=== PATIENT | female | born 1950 | race Caucasian/White ===

== ENCOUNTER → 2017-02-04 | Outpatient (REF) | payer BC, MEDICARE ==
[2017-02-04 19:44] LABS: LITHIUM LEVEL 1.28 MEQ/L (0.60-1.20)
== END ==
LOC: M SFHCADAM 15:07
PROVIDERS: ATTEND Physician Assistant Medical
DX: F31.75 Bipolar disorder, in partial remission, most recent episode depressed (principal); E55.9 Vitamin D deficiency, unspecified
CPT/HCPCS: 80178; 82306; G0463

== ENCOUNTER → 2017-02-24 | Outpatient (CLI) | payer BC, MEDICARE ==
--- NOTE | 2017-02-28 09:14 | DEXA ---
AP SPINE L1 - L4 1.176 -0.2 0.3 LT FEMUR TOTAL 1.015 0.1 0.6 RT FEMUR TOTAL 0.981 -0.2 0.3 TOTAL BODY TOTAL OTHER DUAL FEMUR FRAX* ASSESSMENT Risk factors: Premature menopause. 10 year probability of fracture Major osteoporotic fracture 7.5 % Hip fracture 0.6 % COMMENTS: Normal bone densitometry of the spine. Normal bone densitometry of the left hip. There is low bone density of the right hip. Mild lumbar scoliosis. FOLLOW-UP: Recommendation for the next bone density exam: 2 years. ASH
--- NOTE | 2017-03-02 15:13 | REPMRS ---
Patient History The patient states she has not had a clinical breast exam in over a year. Patient is postmenopausal. No known family history of cancer. Benign excisional biopsy of the right breast, 1983. Reductions of both breasts. Digital Woman Screen Mammo: February 24, 2017 - Exam #: [id number] Bilateral CC and MLO view(s) were taken. Technologist: Jennifer Garcia, Technologist Prior study comparison: March 07, 2014, digital bilateral screening mammo, performed at [facility]. February 08, 2013, digital bilateral screening mammo, performed at [facility]. FINDINGS: There are scattered fibroglandular densities. The visualized implant margins are smooth and unchanged.There is a pacemaker power plant projecting over the left axilla on the MLO view. Breast parenchymal density pattern is essentially symmetric. No dominant mass, clustered microcalcification, or archetectural distortion is evident on either side. No significant changes when compared with prior studies. ASSESSMENT: BI-RADS/ACR category 2 mammogram. Benign finding(s). Recommendation Routine screening mammogram of both breasts in 1 year (for women over age 40). Electronically Signed By: Damián Llanos MD 03/02/17 [id number]
== END ==
LOC: M WHC 13:54
PROVIDERS: ATTEND Physician Assistant Medical
DX: Z12.31 Encounter for screening mammogram for malignant neoplasm of breast (principal); Z78.0 Asymptomatic menopausal state; M41.26 Other idiopathic scoliosis, lumbar region
CPT/HCPCS: 77080; G0202

== ENCOUNTER → 2017-04-14 | Outpatient (CLI) | payer BC, MEDICARE ==
--- NOTE | 2017-04-21 07:46 | SLEEPCENT ---
DATE OF PROCEDURE: 04/14/2017 ORDERED BY: Adilene Montes Nocturnal polysomnography was performed for the retitration of pressure therapy in this patient with obstructive sleep apnea syndrome. For testing, a ResMed Mirage FX nasal mask of standard size was used. 4 cm of water pressure were applied to the circuit and the lights were extinguished. 7 hours and 53 minutes of data were reviewed. There were 342 minutes of sleep identified. Sleep latency was mildly prolonged at 20.5 minutes. REM latency was also mildly prolonged at 114 minutes. Sleep architecture was fair with some persistent fragmentation, brief arousals being seen. There were 3 rapid eye movement (REM) periods appreciated. Overall sleep efficiency was 73.7%. The patient's EKG showed a sinus rhythm with an average heart rate of 63 beats per minute. EEG showed some coarsening of background. No focal events. Normal wave forms for awake and sleep. Respiratory events were best palliated with CPAP at a pressure of +12 with which the patient slept through REM without respiratory event or significant oxygen desaturation. Minimal limb activity was appreciated. IMPRESSION: Obstructive sleep apnea syndrome (G47.33). RECOMMENDATION: Nightly use of pressure therapy 12 cm of water.
== END ==
LOC: M SLEEP 19:36
PROVIDERS: ATTEND Nurse Practitioner Adult Health
DX: G47.33 Obstructive sleep apnea (adult) (pediatric) (principal)

== ENCOUNTER → 2017-04-21 | Outpatient (REF) | payer BC, MEDICARE | LOC: M SFHCADAM 14:21 | PROVIDERS: ATTEND Physician Assistant Medical | DX: F31.75 Bipolar disorder, in partial remission, most recent episode depressed (principal) ==

== ENCOUNTER → 2017-07-07 | Outpatient (REF) | payer BC, MEDICARE ==
[~2017-07-07] MED LIST: ATOR1TAB19 PO; HYDR25TAB PO; IBUP80TA; LITH300C PO; LOSA100T36 PO; METO1TAB32 PO
== END ==
LOC: M LAB REF 16:49
PROVIDERS: ATTEND Obstetrics & Gynecology
DX: R30.0 Dysuria (principal)

== ENCOUNTER → 2017-07-14 | Outpatient (REF) | payer BC ==
[2017-07-14 13:30] LABS: BLOOD UREA NITROGEN 15 MG/DL (7-18); CREATININE FOR GFR 0.95 MG/DL (0.55-1.02); GLOMERULAR FILTRATION RATE > 60.0 (>45)
[2017-07-14 13:31] LABS: LITHIUM LEVEL 0.65 MEQ/L (0.60-1.20)
== END ==
LOC: M LAB REF 12:41
PROVIDERS: ATTEND Psychiatry & Neurology Psychiatry
DX: Z79.899 Other long term (current) drug therapy (principal)

== ENCOUNTER → 2017-07-21 | Outpatient (REF) | payer BC, MEDICARE ==
[2017-07-21 13:47] LABS: BASO # 0.1 10^3/uL (0.0-0.2); BASO % 0.9 % (0.0-1.0); EOS # 0.2 10^3/uL (0.0-0.50); EOS % 2.8 % (0.0-3.0); IMMATURE GRANULOCYTE % 0.4 % (0-0); LYMPH # 2.9 10^3/uL (1.5-4.5); MEAN CORPUSCULAR HEMOGLOBIN 31.5 pg (27.0-33.0); MEAN CORPUSCULAR HGB CONC 32.2 g/dl (32.0-36.5); MEAN CORPUSCULAR VOLUME 97.8 fl (80.0-96.0); MONO # 0.6 10^3/uL (0.0-0.8); MONO % 7.1 % (0.0-5.0); NEUTROPHILS # 3.9 10^3/uL (1.8-7.7); NEUTROPHILS % 50.8 % (36.0-66.0); PLATELET COUNT, AUTOMATED 270 10^3/uL (150-450); RED CELL DISTRIBUTION WIDTH 13.6 % (11.5-14.5); WHITE BLOOD COUNT 7.7 10^3/uL (4.0-10.0)
[2017-07-21 14:19] LABS: ALBUMIN 3.6 GM/DL (3.2-5.2); ALKALINE PHOSPHATASE 103 U/L (45-117); ALT/SGPT 32 U/L (12-78); ANION GAP 6 MEQ/L (8-16); AST/SGOT 19 U/L (15-37); BILIRUBIN,TOTAL 0.7 MG/DL (0.2-1.0); BLOOD UREA NITROGEN 14 MG/DL (7-18); CARBON DIOXIDE LEVEL 31 MEQ/L (21-32); CHLORIDE LEVEL 106 MEQ/L (98-107); CHOLESTEROL LEVEL 161 MG/DL (<200); CREATININE FOR GFR 0.81 MG/DL (0.55-1.02); GLOMERULAR FILTRATION RATE > 60.0 (>45); GLUCOSE, FASTING 78 MG/DL (80-110); POTASSIUM SERUM 4.1 MEQ/L (3.5-5.1); SODIUM LEVEL 143 MEQ/L (136-145); TOTAL PROTEIN 7.2 GM/DL (6.4-8.2); TRIGLYCERIDES LEVEL 197 MG/DL (<150)
== END ==
LOC: M SFHCADAM 09:56
PROVIDERS: ATTEND Physician Assistant Medical
DX: E78.2 Mixed hyperlipidemia (principal); I10 Essential (primary) hypertension

== ENCOUNTER 2017-08-31 05:45 | Day surgery (SDC) | payer BC, MEDICARE ==
[~2017-08-31] VITALS: Ht 172.7 cm; Wt 104.8 kg
[2017-08-31] MEDS ORDERED: LR 1,000 ML IV SCH ×2 (06:00→10:15)
[2017-08-31 06:28] LABS: MEAN CORPUSCULAR HEMOGLOBIN 31.9 pg (27.0-33.0); MEAN CORPUSCULAR HGB CONC 33.1 g/dl (32.0-36.5); MEAN CORPUSCULAR VOLUME 96.6 fl (80.0-96.0); PLATELET COUNT, AUTOMATED 276 10^3/uL (150-450); RED CELL DISTRIBUTION WIDTH 13.3 % (11.5-14.5); WHITE BLOOD COUNT 9.2 10^3/uL (4.0-10.0)
[2017-08-31] MEDS ORDERED: fentaNYL 100 MCG/2 ML INJECTION (J3010) As Ordered ONE ×2 (07:02→08:28)
[2017-08-31] MEDS ORDERED: MIDAZOLAM INJ 2 MG/2 ML VIAL (J2250) As Ordered ONE (07:02)
[2017-08-31] MEDS ORDERED: BUPIVACAINE/EPIN 0.25% 30 ML VIAL As Ordered ONE (07:13)
[2017-08-31] MEDS ORDERED: dexameTHASONE 4 MG/ML 1ML VIAL (J1100) As Ordered ONE (07:42)
[2017-08-31] MEDS ORDERED: ONDANSETRON 4MG/2ML VIAL (J2405) As Ordered ONE ×2 (07:43→09:40)
[2017-08-31] MEDS ORDERED: LIDOCAINE 2% INJ 100 MG/5 ML SDV (FOR ANES.) As Ordered ONE (07:44)
[2017-08-31] MEDS ORDERED: ROCURONIUM BROMIDE 50 MG/5 ML VIAL/SYRINGE As Ordered ONE (07:44)
[2017-08-31] MEDS ORDERED: SUCCINYLCHOLINE 100 MG/5 ML SYRINGE (J0330) As Ordered ONE (07:44)
[2017-08-31] MEDS ORDERED: PROPOFOL 200 MG/20 ML VIAL As Ordered ONE (07:44)
[2017-08-31] MEDS ORDERED: METOCLOPRAMIDE INJ 10MG/2ML VIAL (J2765) As Ordered ONE (10:12)
[2017-08-31] MEDS ORDERED: PERCOCET 5MG/325MG TAB PO PRN (10:15)
[2017-08-31] MEDS ORDERED: ONDANSETRON 4MG/2ML VIAL (J2405) IV PRN (10:15)
[2017-08-31] MEDS ORDERED: fentaNYL 100 MCG/2 ML INJECTION (J3010) IV PRN (10:15)
[2017-08-31] MEDS ORDERED: METOCLOPRAMIDE INJ 10MG/2ML VIAL (J2765) IV PRN (10:30)
[2017-08-31 11:15] VITALS: BP 115/59
[2017-08-31] MEDS ORDERED: COLA100C5 PO (14:34)
[2017-08-31] MEDS ORDERED: TRAM-533 PO (14:37)
--- NOTE | 2017-08-31 15:47 | RO ---
DATE OF PROCEDURE: 08/31/2017 PREOPERATIVE DIAGNOSIS: Pelvic organ prolapse with the rectocele. POSTOPERATIVE DIAGNOSIS: Pelvic organ prolapse with the rectocele. PROCEDURE PERFORMED: Posterior repair. SURGEON: Haley Iglesias MD SENIOR IT ASSISTANT: Cooper Jain MD ANESTHESIA: General endotracheal anesthesia. SPECIMENS: Vaginal mucosa. INTRAVENOUS FLUIDS: 1100 mL of lactated Ringer solution. OPERATIVE FINDINGS: A large midline rectocele. DESCRIPTION OF OPERATION: After informed consent was obtained and written content was reviewed, the patient was brought to the operating room where general endotracheal anesthesia was obtained. She was then placed in lithotomy position and was prepped and draped in a normal sterile fashion. A time-out in the operating room was then performed identifying the patient, the procedure to be performed, as well as drug allergies. The posterior vagina was placed on traction with Allis clamps. This area was injected with 0.25% Marcaine. Incision was made in the vaginal mucosal and dissected away from the submucosal in the midline extending approximately 6 cm along the posterior vaginal wall in the midline. The mucosal was then sharply and bluntly from the submucosal bilaterally. The rectovaginal fascia was then plicated using #2-0 Vicryl in the midline. The vaginal mucosal was then trimmed and closed with a running #2-0 Vicryl. A rectal exam was then performed with no suture identified. The patient was then taken out of lithotomy position, was awakened from general anesthesia and taken to recovery in stable condition. Counts were correct.
== END 2017-08-31 11:48 | disposition home or self-care (01) ==
LOC: M SDC 05:45
PROVIDERS: ATTEND Obstetrics & Gynecology
DX: N81.6 Rectocele (principal); N81.2 Incomplete uterovaginal prolapse; I10 Essential (primary) hypertension; E78.5 Hyperlipidemia, unspecified; K21.9 Gastro-esophageal reflux disease without esophagitis; F31.9 Bipolar disorder, unspecified; G47.33 Obstructive sleep apnea (adult) (pediatric); E66.01 Morbid (severe) obesity due to excess calories; E55.9 Vitamin D deficiency, unspecified; T88.59XD Other complications of anesthesia, subsequent encounter; K57.32 Diverticulitis of large intestine without perforation or abscess without bleeding; K44.9 Diaphragmatic hernia without obstruction or gangrene; K22.2 Esophageal obstruction; R29.898 Other symptoms and signs involving the musculoskeletal system; F32.9 Major depressive disorder, single episode, unspecified; R06.83 Snoring; Z88.0 Allergy status to penicillin; Z88.5 Allergy status to narcotic agent; Z79.899 Other long term (current) drug therapy; Z96.652 Presence of left artificial knee joint; Z95.0 Presence of cardiac pacemaker; Z90.710 Acquired absence of both cervix and uterus; Z87.440 Personal history of urinary (tract) infections
CPT/HCPCS: 36415; 57250; 85027; 86850; 86900; 86901; 88302; J0330; J1100; J2250; J2405; J2765; J3010

== ENCOUNTER → 2017-11-17 | Outpatient (CLI) | payer BC, MEDICARE, OTHER ==
[2017-11-17 12:59] LABS: LITHIUM LEVEL 0.96 MEQ/L (0.60-1.20)
== END ==
LOC: M ADAMS 09:53
DX: Z79.899 Other long term (current) drug therapy (principal)

== ENCOUNTER → 2018-02-10 | Outpatient (REF) | payer BC, MEDICARE, OTHER ==
[2018-02-10 13:34] LABS: GLOMERULAR FILTRATION RATE > 60.0 (>45)
[2018-02-10 13:34] LABS: BLOOD UREA NITROGEN 12 MG/DL (7-18)
[2018-02-10 13:44] LABS: LITHIUM LEVEL 0.74 MEQ/L (0.60-1.20)
== END ==
LOC: M LABDRWAD 12:29
DX: Z51.81 Encounter for therapeutic drug level monitoring (principal); Z79.899 Other long term (current) drug therapy
CPT/HCPCS: 82565

== ENCOUNTER 2018-11-28 11:20 | Day surgery (SDC) | payer MEDICARE, BC ==
[~2018-11-28] VITALS: Ht 172.7 cm; Wt 107.9 kg
[~2018-11-28 11:20] MED LIST changes: +COLA100C5 PO; -LOSA100T36 PO; +LOSA100T50 PO; +PRIL20TA2 PO; +TRAM-533 PO; +VENL150C43 PO; +VENL75CA47 PO; +VITA100067 PO; +VRAY3CAP PO; +XARE10TA PO
[2018-11-28] MEDS ORDERED: LR 1,000 ML IV ONE (11:45)
[2018-11-28] MEDS ORDERED: VANCOMYCIN HCL 1,000 MG, VIAL MATE ADAPTER 1 EACH in D5W 250 ML IV ONE (11:45)
[2018-11-28] MEDS ORDERED: LIDOCAINE 1% SDV INJ 30 ML VIAL As Ordered ONE (13:47)
[2018-11-28] MEDS ORDERED: VANCOMYCIN 1000 MG/20 ML VIAL (J3370) As Ordered ONE (13:47)
[2018-11-28] MEDS ORDERED: MUPIROCIN 2% OINT 22 GM TUBE As Ordered ONE (13:48)
[2018-11-28] MEDS ORDERED: PROPOFOL 200 MG/20 ML VIAL As Ordered ONE (13:52)
[2018-11-28] MEDS ORDERED: LIDOCAINE 2% INJ 100 MG/5 ML SDV (FOR ANES.) As Ordered ONE (13:52)
[2018-11-28] MEDS ORDERED: fentaNYL 100 MCG/2 ML INJECTION (J3010) As Ordered ONE (13:53)
[2018-11-28] MEDS ORDERED: MIDAZOLAM INJ 2 MG/2 ML VIAL (J2250) As Ordered ONE (13:53)
--- NOTE | 2018-11-28 15:59 | RO ---
DATE OF PROCEDURE: 11/28/2018 PREPROCEDURE DIAGNOSIS: Pacemaker battery depletion. POSTPROCEDURE DIAGNOSIS: Pacemaker battery depletion. FINDINGS: Pacemaker battery depletion. PROCEDURE PERFORMED: Explantation of old [employer] dual chamber pacemaker pulse generator and implantation of new Med[employer]onic dual chamber pacemaker pulse generator. Implantation of TYRX envelope. SURGEON: Raphael Argueta MD AGENCY DIRECTOR: None. ANESTHESIA: Lidocaine 1% local/monitored anesthetic care. SPECIMENS: Old [employer] pacemaker pulse generator (dual chamber). ESTIMATED BLOOD LOSS: Less than 3 mL. No blood products replaced. No drains. No complications. DESCRIPTION OF PROCEDURE: The patient was prepped and draped over the left pectoral region. 3M Ioban film was applied. Lidocaine 1% was used for local anesthetic. An incision was made with a PEAK PlasmaBlade over the body of the existing pacemaker pulse generator. A combination of PEAK PlasmaBlade and fine scissor dissection was used to get through the fatty tissue and the anterior capsule overlying the pacemaker pulse generator. The pacemaker pulse generator was then removed from the pocket. The pacemaker pocket was then expanded a small amount using blunt dissection using two fingers in a caudal direction. Next, the internal pins of the atrial and ventricular leads were removed from the existing pacemaker pulse generator after the set screws were loosened. The atrial and ventricular pacemaker leads were tested and found to be satisfactory for chronic leads. The internal pins of the atrial and ventricular leads were plugged into their respective ports in the header of the new pacemaker pulse generator and each one secured by tightening the set screws. The new pacemaker pulse generator was then placed into the pacemaker pocket along with the pacemaker wires below into the pocket. I then took a medium sized TYRX antimicrobial envelope and cut it into six pieces, which were placed over top of the pacemaker pulse generator. The deep layer was closed using individual sutures consisting of #2-0 Vicryl. A few additional #2-0 Vicryl sutures were used to help approximate the more superficial layer, including one #3-0 Vicryl suture. The skin was then approximated using maria. The patient tolerated the procedure well without any immediate complications. The pacemaker pulse generator that was removed was a [employer] model S403 Altrua 40 with serial number [id number], originally implanted 11/15/2011. The new pacemaker pulse generator implanted was a [employer] XT DR MRI with model number W1DR01 with serial number [id number]. The TYRX antimicrobial envelope had reference number [id number] with lot number [id number]. The existing right atrial lead was a model 4470, which was 52 cm in length and had serial number [id number] made by [employer] originally implanted 12/14/2011. Final testing in bipolar configuration in the operating room in bipolar configuration showed capture threshold of 0.4 volts at 0.5 milliseconds with lead impedance of 435 ohms with P amplitude of 2.4 millivolts and slew rate of 0.4 volts per second. The exiting right ventricle lead was a [employer] bipolar lead model 4471, which was 58 cm in length and had serial number [id number]. This lead was implanted originally 12/14/2011. Final testing in the operating room for the right ventricle lead in bipolar configuration showed capture threshold of 0.3 volts at 0.5 milliseconds with lead impedance of 447 ohms and R wave amplitude of 6.9 millivolts and slew rate of 4.0 volts per second. [facility]
[2018-11-28] MEDS ORDERED: ACETAMINOPHEN TAB 650MG DOSE (2X325MG) As Ordered ONE (16:22)
[2018-11-28] MEDS ORDERED: ACETAMINOPHEN TAB 650MG DOSE (2X325MG) PO PRN (16:30)
[2018-11-28 16:35] VITALS: BP 142/78
== END 2018-11-28 16:45 | disposition home or self-care (01) ==
LOC: M SDC 11:20
PROVIDERS: ATTEND Internal Medicine Cardiovascular Disease
DX: T82.111A Breakdown (mechanical) of cardiac pulse generator (battery), initial encounter (principal); X58.XXXA Exposure to other specified factors, initial encounter; Y93.9 Activity, unspecified; Y92.9 Unspecified place or not applicable; Y99.9 Unspecified external cause status; I10 Essential (primary) hypertension; I48.0 Paroxysmal atrial fibrillation; I49.5 Sick sinus syndrome; G47.33 Obstructive sleep apnea (adult) (pediatric); K21.9 Gastro-esophageal reflux disease without esophagitis; E78.5 Hyperlipidemia, unspecified; K57.32 Diverticulitis of large intestine without perforation or abscess without bleeding; K44.9 Diaphragmatic hernia without obstruction or gangrene; K22.2 Esophageal obstruction; R06.02 Shortness of breath; M12.9 Arthropathy, unspecified; F31.9 Bipolar disorder, unspecified; F32.9 Major depressive disorder, single episode, unspecified; G43.109 Migraine with aura, not intractable, without status migrainosus; R06.83 Snoring; T88.59XD Other complications of anesthesia, subsequent encounter; E66.9 Obesity, unspecified; Z68.36 Body mass index [BMI] 36.0-36.9, adult; Z88.0 Allergy status to penicillin; Z88.5 Allergy status to narcotic agent; Z79.899 Other long term (current) drug therapy; Z79.01 Long term (current) use of anticoagulants; Z90.710 Acquired absence of both cervix and uterus; Z96.652 Presence of left artificial knee joint
CPT/HCPCS: 33228; C1785; J2250; J3010; J3370

== ENCOUNTER → 2019-01-04 | Outpatient (CLI) | payer BC, MEDICARE ==
--- NOTE | 2019-01-04 12:49 | REP ---
Gastric emptying nuclear scintigraphy: History: Gastroparesis. Technique: 1.08 mCi of technetium-99m sulfur colloid was ingested in two scrambled eggs and 6 ounces of water and sequential anterior and posterior images are acquired for an 89-minute imaging observation period. Regions of interest are drawn around the stomach to plot gastric emptying. Scintigraphic findings: Expected T1/2 is 90 minutes. 39 % emptying is observed in this patient during the 89-minute imaging observation period, for a calculated T1/2 in this patient of 127 minutes. Impression: Mildly delayed gastric emptying. Electronically Signed by Bill Llanos MD 01/04/2019 12:41 P
== END ==
LOC: M RAD 09:40
PROVIDERS: ATTEND Internal Medicine Gastroenterology
DX: K31.84 Gastroparesis (principal)
CPT/HCPCS: 78264; A9541

== ENCOUNTER → 2019-01-11 | Outpatient (CLI) | payer BC, MEDICARE ==
[~2019-01-11] MED LIST changes: +E-Z-GAS II EFFERVESCENT PACKET (SODIUM BICARB./CITRIC ACID/SIMETHICONE) As Ordered ONE; +E-Z-HD 98% w/w 340GM SUSP BTL As Ordered ONE; +E-Z-PAQUE 96% w/w SUSP 176GM BTL As Ordered ONE
--- NOTE | 2019-01-12 13:37 | REP ---
Esophagram The procedure was performed under the direct supervision of Dr. Llanos. The images were reviewed with Dr. Llanos. A single view PA chest x-ray is submitted as a shuttle buggy operator film. The superior mediastinal structures are midline. The heart size is within normal limits. The lungs are clear. There is a left-sided dual lead pacemaker in place. There are bilateral breast implants. Liquid barium and gas producing granules were given in the erect position as well as liquid barium in the prone oblique positions in order to perform a double contrast esophagram examination. The oral and pharyngeal stages of deglutition are unremarkable. Esophageal transport is prompt and efficient and there is no esophagitis, stricture or mucosal ring. There is a sliding type hiatal hernia. There is gastroesophageal reflux demonstrated to the level of the thoracic inlet. Impression: There is a sliding type hiatal hernia. There is gastroesophageal reflux demonstrated to the level of the thoracic inlet. 0.9 minutes of fluoro time was utilized for this procedure. Reviewed by LUIS Fischer 01/11/2019 04:51 P Electronically Signed by Bill Llanos MD 01/12/2019 01:28 P
== END ==
LOC: M RAD 07:42
PROVIDERS: ATTEND Internal Medicine Gastroenterology
DX: K21.0 Gastro-esophageal reflux disease with esophagitis (principal); K44.9 Diaphragmatic hernia without obstruction or gangrene

== ENCOUNTER 2019-02-02 10:51 | Day surgery (SDC) | payer BC, MEDICARE ==
[~2019-02-02] VITALS: Ht 172.7 cm; Wt 109.7 kg
[~2019-02-02 10:51] MED LIST changes: -E-Z-GAS II EFFERVESCENT PACKET (SODIUM BICARB./CITRIC ACID/SIMETHICONE) As Ordered ONE; -E-Z-HD 98% w/w 340GM SUSP BTL As Ordered ONE; -E-Z-PAQUE 96% w/w SUSP 176GM BTL As Ordered ONE; +NS 1,000 ML IV ONE; +VENL75CA2 PO; +VITAD1000T PO
[2019-02-02] MEDS ORDERED: fentaNYL 100 MCG/2 ML INJECTION (J3010) As Ordered ONE (13:17)
[2019-02-02] MEDS ORDERED: LIDOCAINE 2% INJ 100 MG/5 ML SDV (FOR ANES.) As Ordered ONE (13:17)
[2019-02-02] MEDS ORDERED: PROPOFOL 200 MG/20 ML VIAL As Ordered ONE (13:17)
--- NOTE | 2019-02-02 13:25 | ROOR ---
Patient Name: Sue Hua Procedure Date: 02/02/2019 1:10 PM Date of : 1950 Age: 68 Room: [facility] Gender: Female Note Status: Finalized Procedure: Upper GI endoscopy Indications: Oral phase dysphagia, Esophageal reflux, Gastroparesis. (symptoms of dysphagia have resolved on BID PPI therapy) Providers: Raphael WEN MD Referring MD: MARILEE Gomez Requesting Provider: Medicines: Monitored Anesthesia Care Complications: No immediate complications. Procedure: Pre-Anesthesia Assessment: - The heart rate, respiratory rate, oxygen saturations, blood pressure, adequacy of pulmonary ventilation, and response to care were monitored throughout the procedure. The Endoscope was introduced through the mouth, and advanced to the second part of duodenum. The upper GI endoscopy was accomplished without difficulty. The patient tolerated the procedure well. Findings: The examined esophagus was normal. No endoscopic abnormality was evident in the esophagus to explain the patient's complaint of dysphagia. Very small (insignificant) Hiatal Hernia. The entire examined stomach was normal. The examined duodenum was normal. Impression: - Normal esophagus. No endoscopic esophageal abnormality to explain patient's dysphagia. - Very small (insignificant) Hiatal Hernia. - Normal stomach. - Normal examined duodenum. - No specimens collected. Recommendation: - Continue present medications. - Observe patient's clinical course. - Gastroparesis diet: - Eat smaller, more frequent meals throughout the day. - Low fat diet. - Liquid/soft foods are tolerated better than solid foods. - Low fiber/well cooked vegetables are tolerated better than high fiber/fibrous foods/raw vegetables. - Avoid medications that inhibit gastric/intestinal motility such as narcotic medications. - Resume Xarelto (rivaroxaban) at prior dose today. - Return to referring physician as previously scheduled. Raphael Wen MD Raphael WEN MD 02/02/2019 1:24:45 PM Electronically signed by Raphael WEN MD Number of Addenda: 0 Note Initiated On: 02/02/2019 1:10 PM Estimated Blood Loss: Estimated blood loss: none.
[2019-02-02 13:30] VITALS: BP 170/70
== END 2019-02-02 13:39 | disposition home or self-care (01) ==
LOC: M OPP 10:51
PROVIDERS: ATTEND Internal Medicine Gastroenterology
DX: K44.9 Diaphragmatic hernia without obstruction or gangrene (principal); K21.9 Gastro-esophageal reflux disease without esophagitis; K31.84 Gastroparesis
CPT/HCPCS: 43235; J3010

== ENCOUNTER → 2019-05-17 | Outpatient (REF) | payer BC, MEDICARE ==
[~2019-05-17] MED LIST changes: -NS 1,000 ML IV ONE
[2019-05-17 13:07] LABS: BASO # 0.1 10^3/uL (0.0-0.2); BASO % 0.6 % (0.0-1.0); EOS # 0.1 10^3/uL (0.0-0.50); EOS % 1.2 % (0.0-3.0); HEMATOCRIT 41.7 % (36.0-47.0); HEMOGLOBIN 13.6 g/dl (12.0-15.5); LYMPH # 3.5 10^3/uL (1.5-4.5); LYMPH % 41.5 % (24.0-44.0); MEAN CORPUSCULAR HEMOGLOBIN 30.4 pg (27.0-33.0); MEAN CORPUSCULAR HGB CONC 32.6 g/dl (32.0-36.5); MEAN CORPUSCULAR VOLUME 93.1 fl (80.0-96.0); MONO # 0.6 10^3/uL (0.0-0.8); MONO % 7.6 % (0.0-5.0); NEUTROPHILS # 4.1 10^3/uL (1.8-7.7); NEUTROPHILS % 48.9 % (36.0-66.0); PLATELET COUNT, AUTOMATED 251 10^3/uL (150-450); RED BLOOD COUNT 4.48 10^6/uL (4.00-5.40); WHITE BLOOD COUNT 8.5 10^3/uL (4.0-10.0)
[2019-05-17 13:24] LABS: HEMOGLOBIN A1c 6.6 %
[2019-05-17 13:48] LABS: ALBUMIN 3.4 GM/DL (3.2-5.2); ALT/SGPT 36 U/L (12-78); BILIRUBIN,TOTAL 0.4 MG/DL (0.2-1.0); BLOOD UREA NITROGEN 14 MG/DL (7-18); CALCIUM LEVEL 9.5 MG/DL (8.8-10.2); CARBON DIOXIDE LEVEL 30 MEQ/L (21-32); CHLORIDE LEVEL 107 MEQ/L (98-107); CHOLESTEROL LEVEL 145 MG/DL (<200); CHOLESTEROL RISK RATIO 3.152 (<5); CREATININE FOR GFR 0.94 MG/DL (0.55-1.30); GLOMERULAR FILTRATION RATE > 60.0 (>45); GLUCOSE, FASTING 104 MG/DL (70-100); HDL CHOLESTEROL 46 MG/DL (>40); LDL CHOLESTEROL 70 MG/DL (<100); NON-HDL-C 99 MG/DL; POTASSIUM SERUM 4.5 MEQ/L (3.5-5.1); SODIUM LEVEL 141 MEQ/L (136-145); THYROID STIMULATING HORMONE 0.938 uIU/ML (0.358-3.740); TOTAL 25(OH) VITAMIN D 25.6 NG/ML (30.0-100.0); TRIGLYCERIDES LEVEL 143 MG/DL (<150)
== END ==
LOC: M SFHCADAM 11:00
PROVIDERS: ATTEND Physician Assistant Medical
DX: F31.75 Bipolar disorder, in partial remission, most recent episode depressed (principal); E78.2 Mixed hyperlipidemia; K21.9 Gastro-esophageal reflux disease without esophagitis; R13.10 Dysphagia, unspecified; Z23 Encounter for immunization; E66.01 Morbid (severe) obesity due to excess calories; E55.9 Vitamin D deficiency, unspecified

== ENCOUNTER → 2019-05-24 | Outpatient (CLI) | payer BC, MEDICARE ==
--- NOTE | 2019-05-24 17:00 | REPMRS ---
Patient History The patient states she has not had a clinical breast exam in over a year. Patient is postmenopausal. Family history of prostate cancer at age 79 in father, breast cancer at age 66 in sister. Benign excisional biopsy of the right breast, 1982. Saline implants in both breasts, 1973. Reductions. Digital Woman Screen Mammo: May 24, 2019 - Exam #: [id number] Bilateral CC and MLO view(s) were taken. Technologist: Karla Broderick Technologist Prior study comparison: March 16, 2018, digital woman screen mammo performed at [facility]. February 24, 2017, digital woman screen mammo performed at [facility]. March 07, 2014, digital bilateral screening mammo, performed at [facility]. FINDINGS: There are scattered fibroglandular densities. The visualized implant margins are smooth and calcified as before. There is a pacemaker power plant projecting over the left axilla on the MLO view. Breast parenchymal density pattern is essentially symmetric. No dominant mass, grouped microcalcification, or architectural distortion is evident on either side. 3-D tomosynthesis shows no additional findings. No significant changes when compared with prior studies. Assessment: BI-RADS/ACR category 2 mammogram. Benign Findings. Recommendation Routine screening mammogram of both breasts in 1 year (for women over age 40). This patient's Lifetime Breast Cancer RIsk is estimated at 4.2 %. This mammogram was interpreted with the aid of an FDA-approved computer-aided dectection system. Electronically Signed By: Damián Llanos MD 05/24/19 [id number]
--- NOTE | 2019-05-28 09:46 | DEXA ---
AP SPINE L1 - L4 1.210 0.1 1.8 LT FEMUR TOTAL 0.979 -0.2 1.2 LT NECK 0.864 -1.3 0.4 RT FEMUR TOTAL 0.999 -0.1 1.4 RT NECK 0.837 -1.4 0.2 TOTAL BODY TOTAL OTHER COMMENTS: Normal bone densitometry of the spine. There is low bone density of the hips. The density of the spine has increased 2.9% since 02/24/2017. The density of the left hip has decreased 3.5% since 02/24/2017. The density of the right hip has increased 1.8% since 02/24/2017. The density of the left neck has decreased 7.1% since 02/24/2017. The density of the right neck has decreased 4.5% since 02/24/2017. FOLLOW-UP: Recommendation for the next bone density exam: 2 years. ASH
== END ==
LOC: M WHC 14:45
PROVIDERS: ATTEND Physician Assistant Medical
DX: Z12.13 Encounter for screening for malignant neoplasm of small intestine (principal); Z78.0 Asymptomatic menopausal state; Z80.3 Family history of malignant neoplasm of breast

== ENCOUNTER → 2019-11-15 | Outpatient (REF) | payer BC, MEDICARE ==
[~2019-11-15] MED LIST changes: +CHOL100029 PO; -VITAD1000T PO
[2019-11-15 14:48] LABS: ALBUMIN 3.7 GM/DL (3.2-5.2); ALT/SGPT 51 U/L (12-78); BILIRUBIN,TOTAL 0.6 MG/DL (0.2-1.0); BLOOD UREA NITROGEN 14 MG/DL (7-18); CALCIUM LEVEL 10.1 MG/DL (8.8-10.2); CARBON DIOXIDE LEVEL 28 MEQ/L (21-32); CHLORIDE LEVEL 106 MEQ/L (98-107); CHOLESTEROL LEVEL 157 MG/DL (<200); CHOLESTEROL RISK RATIO 3.738 (<5); CREATININE FOR GFR 0.88 MG/DL (0.55-1.30); GLOMERULAR FILTRATION RATE > 60.0 (>39); GLUCOSE, FASTING 110 MG/DL (70-100); HDL CHOLESTEROL 42 MG/DL (>40); LDL CHOLESTEROL 91 MG/DL (<100); NON-HDL-C 115 MG/DL; POTASSIUM SERUM 4.1 MEQ/L (3.5-5.1); SODIUM LEVEL 140 MEQ/L (136-145); TOTAL PROTEIN 7.7 GM/DL (6.4-8.2); TRIGLYCERIDES LEVEL 120 MG/DL (<150)
[2019-11-15 14:50] LABS: HEMOGLOBIN A1c 6.5 %
== END ==
LOC: M SFHCADAM 09:41
PROVIDERS: ATTEND Physician Assistant Medical
DX: E78.2 Mixed hyperlipidemia (principal); E66.01 Morbid (severe) obesity due to excess calories; E55.9 Vitamin D deficiency, unspecified; E11.9 Type 2 diabetes mellitus without complications

== ENCOUNTER 2021-05-12 09:38 | Emergency (ER) | payer BC, MEDICARE, OTHER ==
[~2021-05-12] VITALS: Ht 172.7 cm; Wt 120.8 kg
[~2021-05-12 09:38] MED LIST changes: +HYDR-3490 PO; -HYDR25TAB PO
--- NOTE | 2021-05-12 10:06 | REP ---
INDICATION: CHEST PAIN. COMPARISON: Portable chest, 04/25/2014. TECHNIQUE: AP upright portable chest image was obtained. FINDINGS: The lungs are clear. There is cardiomegaly without congestive heart failure. There is calcific vascular disease of the thoracic aorta. There is a pacemaker device over the left chest, and the leads appear in good position. There are bilateral breast prostheses. There is a normal upper abdominal bowel gas pattern. There are no bony abnormalities of the chest. IMPRESSION: 1. Cardiomegaly without congestive heart failure. 2. No evidence of acute cardiopulmonary pathology. <Electronically signed by Brian Escalera > 05/12/21 1002
[2021-05-12 10:21] LABS: BASO # 0.1 10^3/uL (0.0-0.2); BASO % 0.7 % (0.0-1.0); EOS # 0.1 10^3/uL (0.0-0.5); EOS % 1.7 % (0.0-3.0); HEMATOCRIT 45.6 % (36.0-47.0); HEMOGLOBIN 14.5 g/dl (12.0-15.5); LYMPH # 2.3 10^3/uL (1.5-5.0); MEAN CORPUSCULAR HEMOGLOBIN 29.7 pg (27.0-33.0); MEAN CORPUSCULAR HGB CONC 31.8 g/dl (32.0-36.5); MEAN CORPUSCULAR VOLUME 93.3 fl (80.0-96.0); MONO # 0.5 10^3/uL (0.0-0.8); MONO % 6.3 % (2.0-8.0); NEUTROPHILS # 4.5 10^3/uL (1.5-8.5); PLATELET COUNT, AUTOMATED 234 10^3/uL (150-450); RED BLOOD COUNT 4.89 10^6/uL (4.00-5.40); WHITE BLOOD COUNT 7.5 10^3/uL (4.0-10.0)
[2021-05-12] MEDS ORDERED: ONDANSETRON 4MG/2ML VIAL IV ONE (10:35)
[2021-05-12 10:39] LABS: BLOOD UREA NITROGEN 9 MG/DL (7-18); CALCIUM LEVEL 9.2 MG/DL (8.8-10.2); CARBON DIOXIDE LEVEL 28 MEQ/L (21-32); CHLORIDE LEVEL 106 MEQ/L (98-107); CREATININE FOR GFR 0.79 MG/DL (0.55-1.30); GLOMERULAR FILTRATION RATE > 60.0 (>39); GLUCOSE, FASTING 150 MG/DL (70-100); POTASSIUM SERUM 3.9 MEQ/L (3.5-5.1); SODIUM LEVEL 140 MEQ/L (136-145)
--- NOTE | 2021-05-12 11:11 | REP ---
INDICATION: vertigo. COMPARISON: None. TECHNIQUE: CT brain performed in the axial plane. Coronal reconstruction images are performed. FINDINGS: There is mild atrophy. There is no midline shift or mass effect. Canas-white differentiation is well maintained. There is no acute intracranial hemorrhage or extra-axial fluid collection. Bone window examination is unremarkable. The visualized mastoid air cells and paranasal sinuses are clear. There are vascular calcifications in the carotid siphons. IMPRESSION: Negative noncontrast CT brain. <Electronically signed by Kashif Canas > 05/12/21 1102
[2021-05-12] MEDS ORDERED: ISOVUE-370 76% 100ML VIAL As Ordered ONE (12:20)
--- NOTE | 2021-05-12 13:51 | REPVR ---
PROCEDURE INFORMATION: Exam: CT Angiography Head With Contrast, Arteriography Exam date and time: 05/12/2021 12:49 PM Age: 70 years old Clinical indication: Vertigo; Additional info: Vertigo, R/O cerebellar CVA TECHNIQUE: Imaging protocol: Computed tomography angiography of the head with contrast. Exam focused on the arteries. 3D rendering (Not supervised by radiologist): MIP and/or 3D reconstructed images were created by the technologist. Radiation optimization: All CT scans at this facility use at least one of these dose optimization techniques: automated exposure control; mA and/or kV adjustment per patient size (includes targeted exams where dose is matched to clinical indication); or iterative reconstruction. Contrast material: ISOVUE 370; Contrast volume: 75 ml; Contrast route: INTRAVENOUS (IV); COMPARISON: CT Head without contrast 05/12/2021 10:34 AM FINDINGS: ANTERIOR CIRCULATION: Right internal carotid artery: Atherosclerotic calcifications are seen involving the right cavernous internal carotid artery. There is no stenosis, occlusion, or aneurysm. Right middle cerebral artery: Unremarkable. No occlusion or significant stenosis. No aneurysm. Right anterior cerebral artery: Unremarkable. No occlusion or significant stenosis. No aneurysm. Left internal carotid artery: Atherosclerotic calcifications are seen involving the left cavernous internal carotid artery. Mild stenosis is present. No occlusion or aneurysm is present. Left middle cerebral artery: Unremarkable. No occlusion or significant stenosis. No aneurysm. Left anterior cerebral artery: Unremarkable. No occlusion or significant stenosis. No aneurysm. POSTERIOR CIRCULATION: Right vertebral artery: Unremarkable. No occlusion or significant stenosis. No aneurysm. Left vertebral artery: Unremarkable. No occlusion or significant stenosis. No aneurysm. 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 Right posterior cerebral artery: There is persistent origin of the right posterior cerebral artery. No stenosis or occlusion is identified. Left posterior cerebral artery: There is persistent origin of the left posterior cerebral artery. No stenosis or occlusion is identified. Veins: The venous sinuses are patent. Brain: No definite mass, cerebral edema, or midline shift. Cerebral ventricles: No ventriculomegaly. Bones/joints: Unremarkable. No acute fracture. Soft tissues: Unremarkable. IMPRESSION: No acute abnormality. No large vessel occlusion Electronically signed by: Elie Grover On 05/12/2021 13:50:48 PM
--- NOTE | 2021-05-12 14:03 | REPVR ---
PROCEDURE INFORMATION: Exam: CT Angiography Neck With Contrast Exam date and time: 05/12/2021 12:49 PM Age: 70 years old Clinical indication: Vertigo; Additional info: Vertigo, R/O cerebellar CVA TECHNIQUE: Imaging protocol: Computed tomography angiography of the neck with contrast. 3D rendering (Not supervised by radiologist): MIP and/or 3D reconstructed images were created by the technologist. Radiation optimization: All CT scans at this facility use at least one of these dose optimization techniques: automated exposure control; mA and/or kV adjustment per patient size (includes targeted exams where dose is matched to clinical indication); or iterative reconstruction. Contrast material: ISOVUE 370; Contrast volume: 75 ml; Contrast route: INTRAVENOUS (IV); COMPARISON: CT Head without contrast 05/12/2021 10:34 AM FINDINGS: Right common carotid artery: There is tortuosity and kinking of the proximal right common carotid artery. This is causing approximately 60% stenosis. Right internal carotid artery: No stenosis of the extracranial segment. No dissection or occlusion. Right external carotid artery: No occlusion or stenosis of the origin. Left common carotid artery: No stenosis. No dissection or occlusion. Left internal carotid artery: Minimal atherosclerotic plaque is present at the left internal carotid artery origin. This is causing less than 15% stenosis. Left external carotid artery: No occlusion or stenosis of the origin. Right vertebral artery: No stenosis. No dissection or occlusion. Left vertebral artery: No stenosis. No dissection or occlusion. Right subclavian artery: There is moderate stenosis of the proximal right subclavian artery. Soft tissues: Normal. No significant soft tissue swelling. Bones/joints: Moderate degenerative changes of the cervical spine are present. IMPRESSION: 1. Tortuosity and kinking of the proximal right common carotid artery. This is causing approximately 60% stenosis. 2. No significant stenosis of the internal carotid arteries REFERENCES: NASCET CRITERIA. The degree of internal carotid artery stenosis is based on NASCET criteria. Normal is no stenosis. Mild is less than 50% stenosis. Moderate is 50-69% stenosis. Severe is 70% to 99% stenosis. Total occlusion is no detectable patent lumen. Electronically signed by: Elie Grover On 05/12/2021 14:02:31 PM
[2021-05-12] MEDS ORDERED: MECLIZINE 25 MG TABLET PO ONE (14:10)
[2021-05-12] MEDS ORDERED: MECL1TAB31 PO (15:55)
[2021-05-12 16:16] VITALS: BP 138/70
--- NOTE | 2021-05-12 21:55 | ECGEPIP ---
[facility] - ED Test Date: 2021-05-12 Pat Name: ALMA RODNEY Department: Room: - Gender: Female Residential Energy Auditor: MARY ANN : 1950 Requested By: Lm Hayes Order Number: [id number] Reading MD: Lm Duncan Measurements Intervals [place] Rate: 77 P: [place]: 212 QRS: -5 QRSD: 140 T: 149 QT: 436 QTc: 493 Interpretive Statements Atrial-paced rhythm with prolonged AV conduction Left bundle branch block NO PRIORS FOR COMPARISON Electronically Signed on 05-12-2021 21:55:02 EDT by Lm Duncan
--- NOTE | 2021-05-13 07:57 | ED PDOC ---
Post-Departure Follow-Up cta neck faxed to sheyla ramos for fu Estelle Hubbard MD May 13, 2021 07:57
== END 2021-05-12 16:51 | disposition home or self-care (01) ==
LOC: M ED 09:38
DX: H81.4 Vertigo of central origin (principal); I48.91 Unspecified atrial fibrillation; I10 Essential (primary) hypertension; E78.5 Hyperlipidemia, unspecified; G47.33 Obstructive sleep apnea (adult) (pediatric); Z88.0 Allergy status to penicillin; Z88.6 Allergy status to analgesic agent; Z95.0 Presence of cardiac pacemaker
CPT/HCPCS: 70450; 70496; 70498; 71045; 80048; 84484; 85025; 93005; 93041; 94760; 96374; 97112; 97116; 97161; 99285; J2405; Q9967

== ENCOUNTER → 2021-05-15 | Outpatient (CLI) | payer MEDICARE ==
[~2021-05-15] MED LIST changes: +LOSA100T45 PO; -LOSA100T50 PO; +MECL1TAB31 PO; +PANT40TA29 PO; +PRED10TA2 PO; +SUCR1TA PO; +VENTAER INH; +XARE20TA PO
== END ==
LOC: M LAB 12:41
PROVIDERS: ATTEND Physician Assistant
DX: R06.02 Shortness of breath (principal)

== ENCOUNTER → 2021-05-28 | Outpatient (REF) | payer MEDICARE ==
[~2021-05-28] MED LIST changes: -LOSA100T45 PO; +LOSA100T50 PO; -PANT40TA29 PO; -PRED10TA2 PO; -SUCR1TA PO; -VENTAER INH; -XARE20TA PO
[2021-05-28 17:07] LABS: BASO # 0.1 10^3/uL (0.0-0.2); BASO % 0.5 % (0.0-1.0); EOS # 0.2 10^3/uL (0.0-0.5); EOS % 2.3 % (0.0-3.0); HEMATOCRIT 45.6 % (36.0-47.0); HEMOGLOBIN 14.5 g/dl (12.0-15.5); LYMPH # 3.9 10^3/uL (1.5-5.0); LYMPH % 40.8 % (24.0-44.0); MEAN CORPUSCULAR HEMOGLOBIN 30.1 pg (27.0-33.0); MEAN CORPUSCULAR HGB CONC 31.8 g/dl (32.0-36.5); MEAN CORPUSCULAR VOLUME 94.8 fl (80.0-96.0); MONO # 0.6 10^3/uL (0.0-0.8); MONO % 6.3 % (2.0-8.0); NEUTROPHILS # 4.7 10^3/uL (1.5-8.5); NEUTROPHILS % 49.4 % (36.0-66.0); PLATELET COUNT, AUTOMATED 267 10^3/uL (150-450); RED BLOOD COUNT 4.81 10^6/uL (4.00-5.40); WHITE BLOOD COUNT 9.5 10^3/uL (4.0-10.0)
[2021-05-28 17:34] LABS: MALB URINE SIEMENS 9.1 MG/L; MAU/CREAT RATIO 4.5 MCG/MG (0.0-30.0)
[2021-05-28 17:45] LABS: ALBUMIN 3.4 GM/DL (3.2-5.2); ALT/SGPT 53 U/L (12-78); BILIRUBIN,TOTAL 0.4 MG/DL (0.2-1.0); BLOOD UREA NITROGEN 11 MG/DL (7-18); CALCIUM LEVEL 9.5 MG/DL (8.8-10.2); CARBON DIOXIDE LEVEL 28 MEQ/L (21-32); CHLORIDE LEVEL 107 MEQ/L (98-107); CHOLESTEROL LEVEL 155 MG/DL (<200); CHOLESTEROL RISK RATIO 3.604 (<5); CREATININE FOR GFR 0.76 MG/DL (0.55-1.30); GLOMERULAR FILTRATION RATE > 60.0 (>39); GLUCOSE, FASTING 74 MG/DL (70-100); HDL CHOLESTEROL 43 MG/DL (>40); LDL CHOLESTEROL 87 MG/DL (<100); NON-HDL-C 112 MG/DL; POTASSIUM SERUM 4.6 MEQ/L (3.5-5.1); SODIUM LEVEL 139 MEQ/L (136-145); TOTAL PROTEIN 7.3 GM/DL (6.4-8.2); TRIGLYCERIDES LEVEL 124 MG/DL (<150)
[2021-05-28 17:49] LABS: HEMOGLOBIN A1c 6.6 %
== END ==
LOC: M SFHCADAM 11:57
PROVIDERS: ATTEND Physician Assistant Medical
DX: E78.2 Mixed hyperlipidemia (principal); I10 Essential (primary) hypertension; E55.9 Vitamin D deficiency, unspecified; E11.9 Type 2 diabetes mellitus without complications; K92.1 Melena

== ENCOUNTER → 2021-06-19 | Outpatient (CLI) | payer MEDICARE ==
[~2021-06-19] MED LIST changes: +XARE20TA PO
== END ==
LOC: M LABSMTC 11:05
PROVIDERS: ATTEND Anesthesiology
DX: Z01.812 Encounter for preprocedural laboratory examination (principal); Z20.822 Contact with and (suspected) exposure to COVID-19

== ENCOUNTER 2021-06-24 12:56 | Day surgery (SDC) | payer MEDICARE ==
[~2021-06-24] VITALS: Ht 172.7 cm; Wt 117.5 kg
[~2021-06-24 12:56] MED LIST changes: +NS 1,000 ML IV SCH
[2021-06-24] MEDS ORDERED: propofoL 200 MG/20 ML VIAL As Ordered ONE (14:28)
[2021-06-24] MEDS ORDERED: LIDOCAINE 2% 100MG/5ML SDV (FOR ANES.) As Ordered ONE (14:28)
--- NOTE | 2021-06-24 14:45 | ROOR ---
Patient Name: Sue Hua Procedure Date: 06/24/2021 2:15 PM Date of : 1950 Age: 71 Room: [facility] Gender: Female Note Status: Finalized Procedure: Colonoscopy Indications: High risk colon cancer surveillance: Personal history of colonic polyps Providers: DO Livier Nava MD: MARILEE Gomez Requesting Provider: Medicines: Propofol per Anesthesia Complications: No immediate complications. Procedure: Pre-Anesthesia Assessment: - Prior to the procedure, a History and Physical was performed, and patient medications and allergies were reviewed. The patient is competent. The risks and benefits of the procedure and the sedation options and risks were discussed with the patient. All questions were answered and informed consent was obtained. Patient identification and proposed procedure were verified by the physician, the nurse, the awning hanger helper and the healthcare technician in the endoscopy suite. Mental Status Examination: alert and oriented. Airway Examination: normal oropharyngeal airway and neck mobility. Respiratory Examination: clear to auscultation. CV Examination: normal. Prophylactic Antibiotics: The patient does not require prophylactic antibiotics. Prior Anticoagulants: The patient has taken no previous anticoagulant or antiplatelet agents. ASA Grade Assessment: II - A patient with mild systemic disease. After reviewing the risks and benefits, the patient was deemed in satisfactory condition to undergo the procedure. The anesthesia plan was to use monitored anesthesia care (MAC). Immediately prior to administration of medications, the patient was re-assessed for adequacy to receive sedatives. The heart rate, respiratory rate, oxygen saturations, blood pressure, adequacy of pulmonary ventilation, and response to care were monitored throughout the procedure. The physical status of the patient was re-assessed after the procedure. The Colonoscope was introduced through the anus and advanced to the cecum, identified by appendiceal orifice and ileocecal valve. The colonoscopy was performed without difficulty. The patient tolerated the procedure well. Findings: Non-bleeding internal hemorrhoids were found during retroflexion. The hemorrhoids were mild and Grade II (internal hemorrhoids that prolapse but reduce spontaneously). A few small-mouthed diverticula were found in the sigmoid colon. Three flat polyps were found in the rectum. The polyps were 2 to 4 mm in size. These polyps were removed with a jumbo cold forceps. Resection and retrieval were complete. Estimated blood loss was minimal. Three hyperplastic polyps were found in the sigmoid colon and cecum. The polyps were 7 to 12 mm in size. These polyps were removed with a hot snare. Resection and retrieval were complete. Estimated blood loss was minimal. Impression: - Non-bleeding internal hemorrhoids. - Diverticulosis in the sigmoid colon. - Three 2 to 4 mm polyps in the rectum, removed with a jumbo cold forceps. Resected and retrieved. - Three 7 to 12 mm polyps in the sigmoid colon and in the cecum, removed with a hot snare. Resected and retrieved. Recommendation: - Patient has a contact number available for emergencies. The signs and symptoms of potential delayed complications were discussed with the patient. Return to normal activities tomorrow. Written discharge instructions were provided to the patient. - Await pathology results. - Repeat colonoscopy in 3 years for surveillance based on pathology results. - Return to my office at appointment to be scheduled. - Await pathology results. Procedure Code(s): --- Professional --- 05256, Colonoscopy, flexible; with removal of tumor(s), polyp(s), or other lesion(s) by snare technique 47098, 59, Colonoscopy, flexible; with biopsy, single or multiple Diagnosis Code(s): --- Professional --- Z86.010, Personal history of colonic polyps K64.1, Second degree hemorrhoids K62.1, Rectal polyp K63.5, Polyp of colon K57.30, Diverticulosis of large intestine without perforation or abscess without bleeding CPT copyright 2019 [employer]. All rights reserved. The codes documented in this report are preliminary and upon enamel cracker review may be revised to meet current compliance requirements. Kashif Calderon DO 06/24/2021 2:45:07 PM Electronically signed by Kashif Calderon DO Number of Addenda: 0 Note Initiated On: 06/24/2021 2:15 PM Estimated Blood Loss: Estimated blood loss was minimal.
[2021-06-24 15:10] VITALS: BP 192/98
== END 2021-06-24 15:11 | disposition home or self-care (01) ==
LOC: M OPP 12:56
PROVIDERS: ATTEND Surgery
DX: Z12.11 Encounter for screening for malignant neoplasm of colon (principal); Z86.010 Personal history of colon polyps; K63.5 Polyp of colon; K62.1 Rectal polyp; K57.30 Diverticulosis of large intestine without perforation or abscess without bleeding; K64.1 Second degree hemorrhoids; G47.30 Sleep apnea, unspecified; I48.91 Unspecified atrial fibrillation; Z95.0 Presence of cardiac pacemaker; Z79.899 Other long term (current) drug therapy; Z88.0 Allergy status to penicillin; Z88.5 Allergy status to narcotic agent; Z91.048 Other nonmedicinal substance allergy status

== ENCOUNTER 2021-09-25 08:03 | Outpatient (CLI) | payer MEDICARE ==
[~2021-09-25] VITALS: Ht 172.7 cm; Wt 115.0 kg
[~2021-09-25 08:03] MED LIST changes: +ALBUTEROL 90 MCG/ACT 8GM HFA INHALER INH PRN; +ALBUTEROL SULFATE 2.5 MG/0.5 ML INH NEB SOLN INH PRN; +CASIRIVIMAB/IMDEVIMAB 1,200 MG in NS 250 ML IV ONE; +EPINEPHrine INJ 1 MG/ML 1ML AMP IM PRN; +LOSA100T45 PO; -LOSA100T50 PO; +diphenhydrAMINE 50MG/ML VIAL (J1200) IV PRN; +methylPREDNISolone 125MG 2ML VIAL IV PRN
[2021-09-25 08:15] VITALS: BP 141/73
[2021-09-26] MEDS ORDERED: VENL150C43 PO (08:39)
== END 2021-09-25 09:30 ==
LOC: M OPCLI4PR 08:03
PROVIDERS: ATTEND Physician Assistant
DX: Z53.9 Procedure and treatment not carried out, unspecified reason (principal)

== ENCOUNTER 2021-09-25 08:50 | Inpatient (IN) | payer MEDICARE ==
[~2021-09-25] VITALS: Ht 172.7 cm; Wt 110.0 kg
[~2021-09-25 08:50] MED LIST changes: -ALBUTEROL 90 MCG/ACT 8GM HFA INHALER INH PRN; -ALBUTEROL SULFATE 2.5 MG/0.5 ML INH NEB SOLN INH PRN; -CASIRIVIMAB/IMDEVIMAB 1,200 MG in NS 250 ML IV ONE; -EPINEPHrine INJ 1 MG/ML 1ML AMP IM PRN; -LOSA100T45 PO; +LOSA100T50 PO; -NS 1,000 ML IV SCH; -diphenhydrAMINE 50MG/ML VIAL (J1200) IV PRN; -methylPREDNISolone 125MG 2ML VIAL IV PRN
[2021-09-25] MEDS ORDERED: ASPIRIN 81MG ENTERIC TABLET PO SCH (09:00)
[2021-09-25] MEDS ORDERED: dexameTHASONE 4 MG/ML 1ML VIAL (J1100 PER 1MG) IV SCH (09:00)
[2021-09-25] MEDS ORDERED: PANTOPRAZOLE 40MG TAB (PROTONIX) PO SCH (09:00)
[2021-09-25 09:40] VITALS: BP 137/72
[2021-09-25] MEDS ORDERED: ACETAMINOPHEN TAB 650MG DOSE (2X325MG) PO PRN (10:35)
--- NOTE | 2021-09-25 10:51 | HPEPDOC ---
General Date of Admission Sep 25, 2021 at 09:41 Date of Service: Sep 25, 2021 Chief Complaint The patient is a 71-year-old female admitted with a reason for visit of Hypoxia, Covid-19. Source: Patient History of Present Illness 71-year-old female with past medical history of morbid obesity/SEGUNDO on CPAP, A. fib on Xarelto, sick sinus syndrome status post pacemaker, hypertension, bipolar disorder, PTSD, borderline personality disorder, has been sick for the past 9 days. She started with malaise body aches chills and coughing. There is no phlegm production. She also has been nauseous with poor appetite but no diarrhea. She reports she has been so malaised and tired that she has been sleeping almost all day long. She was tested for Covid on 09/24/2021 and found to be positive so was sent for monoclonal antibody infusion by PMD to the infusion unit. On arrival to the usual infusion unit she was noted to be hypoxic at 87% in room air. Monoclonal antibody infusion was canceled and she was placed for admission. Home Medications Scheduled Atorvastatin Calcium (Atorvastatin Calcium) 10 Mg Tab, 10 MG PO DAILY, (Reported) @ 1600 Losartan Potassium (Losartan Potassium) 100 Mg Tab, 100 MG PO DAILY, (Reported) @ 1600 Metoprolol Succinate (Metoprolol Succinate) 25 Mg Tab, 25 MG PO DAILY, (Reported) @ 1600 Omeprazole Magnesium (Prilosec Otc) 20 Mg Tablet.dr, 20 MG PO DAILY, (Reported) @ 1600 Rivaroxaban (Xarelto) 20 Mg Tablet, 20 MG PO DAILY, (Reported) @ 1600 Venlafaxine HCl (Venlafaxine HCl ER) 75 Mg Cap.er.24h, 75 MG PO DAILY, (Reported) @ 1600. TAKE WITH 150MG CAP. TOTAL OF 225MG Venlafaxine HCl (Venlafaxine HCl ER) 150 Mg Cap.er.24h, 150 MG PO DAILY, (Reported) @ 1600. TAKE WITH 75MG CAP. TOTAL OF 225MG Allergies Coded Allergies: codeine (Verified Allergy, Severe, throat swelling, 01/19/19) Penicillins (Verified Allergy, Intermediate, rash increased BP, 01/19/19) transparent dressing (Verified Allergy, Intermediate, blisters, 01/19/19) Past Medical History Medical History SEGUNDO on CPAP A. fib Sick sinus syndrome status post pacemaker Hypertension Hyperlipidemia GERD History of esophageal stricture Morbid obesity Internal hemorrhoids diverticulosis in the sigmoid colon Sigmoid colon polyps Bipolar disorder. PTSD Borderline personality disorder. Surgical History Total hysterectomy 1977 Left knee replacement 2011 Pacemaker 2013 Cholecystectomy 2011 Left heel bone spurs and right heel bone spur surgeries in 2013 2014 Rectocele and vaginal prolapse surgery 2017 Family History Father at 83 years from prostate and throat cancer Mother at 73 years from renal failure 3 Brothers have diabetes Sister with history of uterine cancer Social History * Smoker: non-smoker Alcohol: Denies Drugs: denies A-FIB/CHADSVASC A-FIB History Current/History of A-Fib/PAF?: Yes Current PO Anticoag Therapy: Yes Review of Systems Constitutional: Reports: Chills, Fever, Malaise, Fatigue; Denies: Night Sweats Eyes: Denies: Pain, Vision change ENT: Denies: Head Aches, Ear Pain, Dysphagia Skin: Denies: Rash, Lesions, Breakdown Pulmonary: Reports: Dyspnea, Cough Cardiovascular: Denies: Chest Pain, Palpitations Gastrointestinal: Reports: Nausea; Denies: Vomiting, Abdominal Pain, Diarrhea Genitourinary: Denies: Dysuria, Frequency Hematologic: Denies: Bruising, Bleeding Excessively Musculoskeletal: Reports: Muscle Pain; Denies: Neck Pain, Back Pain, Joint Pain, Spasms Physical Examination General Exam: Positive: Alert, Cooperative, No Acute Distress Eye Exam: Positive: PERRLA, Conjunctiva & lids normal, EOMI; Negative: Sclera icteric ENT Exam: Positive: Atraumatic, Mucous membr. moist/pink, Pharynx Normal Neck Exam: Positive: Supple; Negative: JVD, thyromegaly Chest Exam: Positive: Normal air movement, Diminished, Other (Crackles at both the bases) Heart Exam: Positive: Rate Normal, Regular Rhythm, Normal S1, Normal S2; Negative: Murmurs, Rubs Abdomen Exam: Positive: Normal bowel sounds, Soft; Negative: Tenderness Extremity Exam: Negative: Clubbing, Cyanosis, Edema Skin Exam: Positive: Nl turgor and temperature; Negative: Breakdown, Lesion Psych Exam: Positive: Memory Intact, Oriented x 3 Vital Signs Vital Signs Date Time Temp Pulse Resp B/P (MAP) Pulse Ox O2 Delivery O2 Flow Rate FiO2 09/25/21 09:40 101.9 86 20 137/72 (93) 92 Nasal Cannula 3.0 Assessment/Plan 71-year-old female with past medical history of morbid obesity/SEGUNDO on CPAP, A. fib on Xarelto, sick sinus syndrome status post pacemaker, hypertension, bipolar disorder, PTSD, borderline personality disorder, has been sick for the past 9 days. She started with malaise body aches chills and coughing. There is no phlegm production. She also has been nauseous with poor appetite but no diarrhea. She reports she has been so malaised and tired that she has been sle eping almost all day long. She was tested for Covid on 09/24/2021 and found to be positive so was sent for monoclonal antibody infusion by PMD to the infusion unit. On arrival to the usual infusion unit she was noted to be hypoxic at 87% in room air so was admitted to the hospital. Covid 19 pneumonia with hypoxic At present patient is requiring 3 L of oxygen We will check Covid labs and chest x-ray. incentive spirometry and awake pronation We will start on dexamethasone, and remdesivir If procalcitonin is elevated will start on antibiotics for secondary bacterial pneumonia A. fib with history of sick sinus syndrome has a pacemaker in place Pulse rate is controlled We will continue in on beta-mateus and Xarelto Hypertension Well-controlled. We will only continue beta-mateus for now Will restart losartan as needed SEGUNDO May use on CPAP Bipolar disorder/borderline personality disorder/PTSD Continue venlafaxine GERD/esophageal stricture Continue PPI Plan / VTE VTE Prophylaxis Ordered?: Yes Ruthie Lynne MD Sep 25, 2021 10:51
--- NOTE | 2021-09-25 11:22 | REP ---
INDICATION: COVID-19 pneumonia COMPARISON: 05/12/2021 TECHNIQUE: Portable AP view of the chest FINDINGS: Diffuse bilateral airspace disease consistent with COVID-19 pulmonary disease. No effusion. No pneumothorax. Mediastinum and cardiac silhouette are stable. No pneumothorax. Skeletal structures intact. IMPRESSION: Diffuse bilateral opacities consistent with COVID-19 pulmonary disease. <Electronically signed by Pepe Saucedo > 09/25/21 [id number]
[2021-09-25 11:35] LABS: VENOUS BASE EXCESS 0.1 (-2.0-2.0); VENOUS HCO3 23.2 MEQ/L (23.0-27.0); VENOUS PARTIAL PRESSURE CO2 33.8 mmHg (38.0-50.0); VENOUS PARTIAL PRESSURE O2 41.6 mmHg (30.0-50.0); VENOUS PH 7.455 UNITS (7.330-7.430); VENOUS STANDARD HCO3 24.1 MEQ/L; VENOUS TOTAL CO2 24.3 MEQ/L (24.0-28.0)
[2021-09-25 11:36] LABS: BASO % 0.1 % (0.0-1.0); HEMATOCRIT 45.4 % (36.0-47.0); HEMOGLOBIN 15.3 g/dl (12.0-15.5); LYMPH # 1.4 10^3/uL (1.5-5.0); LYMPH % 21.1 % (24.0-44.0); MEAN CORPUSCULAR HEMOGLOBIN 30.5 pg (27.0-33.0); MEAN CORPUSCULAR HGB CONC 33.7 g/dl (32.0-36.5); MEAN CORPUSCULAR VOLUME 90.6 fl (80.0-96.0); MONO # 0.5 10^3/uL (0.0-0.8); MONO % 7.4 % (2.0-8.0); NEUTROPHILS # 4.8 10^3/uL (1.5-8.5); PLATELET COUNT, AUTOMATED 144 10^3/uL (150-450); RED BLOOD COUNT 5.01 10^6/uL (4.00-5.40); WHITE BLOOD COUNT 6.8 10^3/uL (4.0-10.0)
[2021-09-25 11:50] LABS: INR 1.02; PROTHROMBIN TIME 13.8 SECONDS (12.7-14.5)
[2021-09-25 11:51] LABS: PARTIAL THROMBOPLASTIN TIME 33.3 SECONDS (25.9-37.0)
[2021-09-25 11:54] LABS: D-DIMER QUANT 1457.06 ng/ml (<500)
[2021-09-25 12:15] LABS: ALBUMIN 2.9 GM/DL (3.2-5.2); ALT/SGPT 48 U/L (12-78); BILIRUBIN,DIRECT 0.3 MG/DL (0.0-0.2); BILIRUBIN,TOTAL 0.6 MG/DL (0.2-1.0); BLOOD UREA NITROGEN 10 MG/DL (7-18); C REACTIVE PROTEIN QUANTITATIV 2.22 MG/DL (0.00-0.30); CALCIUM LEVEL 8.9 MG/DL (8.8-10.2); CARBON DIOXIDE LEVEL 23 MEQ/L (21-32); CHLORIDE LEVEL 105 MEQ/L (98-107); CREATININE FOR GFR 0.75 MG/DL (0.55-1.30); FERRITIN 642 NG/ML (8-252); GLOMERULAR FILTRATION RATE > 60.0 (>39); GLUCOSE, FASTING 144 MG/DL (70-100); LDH LACTATE DEHYDROGENASE 288 U/L (84-246); MAGNESIUM LEVEL 1.9 MG/DL (1.8-2.4); NT-PRO BNP 224 PG/ML (<125); SODIUM LEVEL 138 MEQ/L (136-145); TOTAL PROTEIN 6.6 GM/DL (6.4-8.2)
[2021-09-25] MEDS ORDERED: REMDESIVIR 200 MG in NS 250 ML IV ONE (13:00)
[2021-09-25 14:00] VITALS: BP 131/78
[2021-09-25] MEDS ORDERED: SODIUM CHLORIDE 0.9% INJ 10 ML SYR IV ONE (15:00)
[2021-09-25 20:00] VITALS: BP 164/89; O2SAT 89
[2021-09-25 21:00] VITALS: O2SAT 89
[2021-09-25 22:00] VITALS: O2SAT 90
[2021-09-25 23:00] VITALS: O2SAT 88
[2021-09-26] VITALS (10 sets, daily range): BP systolic 122–153; BP diastolic 58–88; O2SAT 82–94
[2021-09-26 02:43] LABS: APPEARANCE, URINE CLOUDY (CLEAR); BACTERIA, URINE AUTO 1+ (NEGATIVE); BILIRUBIN, URINE AUTO NEGATIVE (NEGATIVE); BLOOD, URINE BLOOD NEGATIVE (NEGATIVE); COLOR, URINE AMBER (YELLOW); GLUCOSE, URINE (UA) AUTO NEGATIVE (NEGATIVE); KETONE, URINE AUTO NEGATIVE (NEGATIVE); LEUKOCYTE ESTERASE, URINE AUTO NEGATIVE (NEGATIVE); MUCUS, URINE LARGE (NEGATIVE); NITRITE, URINE AUTO NEGATIVE (NEGATIVE); PROTEIN, URINE AUTO 2+ mg/dL (NEGATIVE); RBC, URINE AUTO 2 /HPF (0-3); SPECIFIC GRAVITY URINE AUTO 1.027 (1.002-1.035); SQUAMOUS EPITHELIAL CELL UR AU 5 /HPF (0-6); WBC, URINE AUTO 16 /HPF (0-3)
[2021-09-26 07:43] LABS: BASO % 0.1 % (0.0-1.0); HEMATOCRIT 48.8 % (36.0-47.0); HEMOGLOBIN 15.8 g/dl (12.0-15.5); LYMPH # 1.3 10^3/uL (1.5-5.0); LYMPH % 18.8 % (24.0-44.0); MEAN CORPUSCULAR HGB CONC 32.4 g/dl (32.0-36.5); MEAN CORPUSCULAR VOLUME 92.6 fl (80.0-96.0); MONO # 0.5 10^3/uL (0.0-0.8); MONO % 6.8 % (2.0-8.0); NEUTROPHILS # 5.2 10^3/uL (1.5-8.5); NEUTROPHILS % 73.7 % (36.0-66.0); PLATELET COUNT, AUTOMATED 159 10^3/uL (150-450); RED BLOOD COUNT 5.27 10^6/uL (4.00-5.40)
[2021-09-26 08:18] LABS: ALBUMIN 2.5 GM/DL (3.2-5.2); ALT/SGPT 43 U/L (12-78); BILIRUBIN,DIRECT < 0.1 MG/DL (0.0-0.2); BILIRUBIN,TOTAL 0.5 MG/DL (0.2-1.0); BLOOD UREA NITROGEN 17 MG/DL (7-18); CALCIUM LEVEL 9.5 MG/DL (8.8-10.2); CARBON DIOXIDE LEVEL 27 MEQ/L (21-32); CHLORIDE LEVEL 105 MEQ/L (98-107); CREATININE FOR GFR 0.74 MG/DL (0.55-1.30); GLOMERULAR FILTRATION RATE > 60.0 (>39); GLUCOSE, FASTING 151 MG/DL (70-100); MAGNESIUM LEVEL 2.2 MG/DL (1.8-2.4); POTASSIUM SERUM 5.1 MEQ/L (3.5-5.1); SODIUM LEVEL 137 MEQ/L (136-145); TOTAL PROTEIN 7.7 GM/DL (6.4-8.2)
[2021-09-26] MEDS: ALBUTEROL 90 MCG/ACT 8GM HFA INHALER INH SCH ×4 (08:31→20:14)
[2021-09-26] MEDS ORDERED: VENL150C43 PO (08:39)
[2021-09-26] MEDS ORDERED: HOME MED LIST COMPLETE! XX SCH (09:55)
[2021-09-26] MEDS: BARICITINIB 2MG TABLET (OLUMIANT) FOR EUA PO SCH (10:31)
[2021-09-26] MEDS: PANTOPRAZOLE 40MG TAB (PROTONIX) PO SCH ×2 (10:32→21:45)
[2021-09-26] MEDS: dexameTHASONE 4 MG/ML 1ML VIAL (J1100 PER 1MG) IV SCH ×2 (10:32→21:45)
--- NOTE | 2021-09-26 11:05 | IPNPDOC ---
Subjective Date Seen The patient was seen on 09/26/21. Subjective Chief Complaint/HPI Oxygenation has worsened overnight. Use CPAP with oxygen. No fever or chills. Reports she feels a little better than yesterday. Objective Physical Examination General Exam: Positive: Alert, Cooperative, No Acute Distress Eye Exam: Positive: PERRLA, Conjunctiva & lids normal, EOMI; Negative: Sclera icteric ENT Exam: Positive: Atraumatic, Mucous membr. moist/pink, Pharynx Normal Neck Exam: Positive: Supple; Negative: JVD, thyromegaly Chest Exam: Positive: Normal air movement, Diminished, Other (Crackles at both the bases) Heart Exam: Positive: Rate Normal, Regular Rhythm, Normal S1, Normal S2; Negative: Murmurs, Rubs Abdomen Exam: Positive: Normal bowel sounds, Soft; Negative: Tenderness Extremity Exam: Negative: Clubbing, Cyanosis, Edema Skin Exam: Positive: Nl turgor and temperature; Negative: Breakdown, Lesion Psych Exam: Positive: Memory Intact, Oriented x 3 Assessment /Plan Assessment 71-year-old female with past medical history of morbid obesity/SEGUNDO on CPAP, A. fib on Xarelto, sick sinus syndrome status post pacemaker, hypertension, bipolar disorder, PTSD, borderline personality disorder, has been sick for the past 9 days. She started with malaise body aches chills and coughing. There is no phlegm production. She also has been nauseous with poor appetite but no diarrhea. She reports she has been so tired that she has been sleeping almost all day long. She was tested for Covid on 09/24/2021 and found to be positive so was sent for monoclonal antibody infusion by PMD to the infusion unit. On arrival to the infusion unit she was noted to be hypoxic at 87% in room air so was admitted to the hospital. Covid 19 pneumonia with ARDS Dexamethasone,remdesevir, olumiant. incentive spirometry and awake pronation procalcitonin not elevated. A. fib with history of sick sinus syndrome has a pacemaker in place Pulse rate is controlled We will continue in on beta-mateus and Xarelto Hypertension will continue metoprolol and lower dose of losartan for now. SEGUNDO May use on CPAP Bipolar disorder/borderline personality disorder/PTSD Continue venlafaxine GERD/esophageal stricture Continue PPI Plan/VTE VTE Prophylaxis Ordered?: Yes VS, I&O, 24H, Fishbone Vital Signs/I&O Vital Signs Date Time Temp Pulse Resp B/P (MAP) Pulse Ox O2 Delivery O2 Flow Rate FiO2 09/26/21 04:00 96.6 66 18 153/88 (109) 91 High Flow Cannula 15.0 I&O- Last 24 Hours up to 6 AM 09/26/21 06:00 Intake Total 1200 ml Output Total 400 ml Balance 800 ml Laboratory Data 24H LABS Laboratory Tests 2 09/25/21 11:25: Immature Granulocyte % (Auto) 0.4, Neutrophils (%) (Auto) 71.0H, Lymphocytes (%) (Auto) 21.1L, Monocytes (%) (Auto) 7.4, Eosinophils (%) (Auto) 0.0, Basophils (%) (Auto) 0.1, Neutrophils # (Auto) 4.8, Lymphocytes # (Auto) 1.4L, Monocytes # (Auto) 0.5, Eosinophils # (Auto) 0.0, Basophils # (Auto) 0.0, Nucleated Red Blood Cells % (auto) 0.0, Prothrombin Time 13.8, Prothromb Time International Ratio 1.02, Activated Partial Thromboplast Time 33.3, Fibrinogen 646H, D-Dimer, Quantitative 1457.06H, Blood Gas Bicarbonate Standard 24.1, Venous Blood pH 7.455H, Venous Blood Partial Pressure CO2 33.8L, Venous Blood Partial Pressure O2 41.6, Venous Blood Total Carbon Dioxide 24.3, Venous Blood HCO3 23.2, Venous Blood Oxygen Saturation 79.0, Venous Blood Base Excess 0.1, Anion Gap 10, Glomerular Filtration Rate > 60.0, Calcium Level 8.9, Magnesium Level 1.9, Ferritin 642H, Total Bilirubin 0.6, Direct Bilirubin 0.3H, Aspartate Amino Transf (AST/SGOT) 75H, Alanine Aminotransferase (ALT/SGPT) 48, Alkaline Phosphatase 142H, Lactate Dehydrogenase 288H, C-Reactive Protein, Quantitative 2.22H, QC-Wdt-V-Type Natriuretic Peptide 224H, Total Protein 6.6, Albumin 2.9L, Albumin/Globulin Ratio 0.8L, Procalcitonin 0.07 CBC/BMP Laboratory Tests 09/25/21 11:25 Microbiology Microbiology 09/25/21 Blood Culture, Received Pending Ruthie Lynne MD Sep 26, 2021 07:40
--- NOTE | 2021-09-26 12:08 | ECGEPIP ---
[facility] Test Date: 2021-09-25 Pat Name: ALMA RODNEY Department: Room: [place] [address] Gender: Female Fur Trimmer: KARLO : 1950 Requested By: Ruthie Lynne Order Number: [id number] Reading MD: Jamari Snyder Measurements Intervals [place] Rate: 85 P: 94 NC: 106 QRS: -9 QRSD: 130 T: 163 QT: 464 QTc: 552 Interpretive Statements Sinus rhythm with short NC Left bundle branch block Last tracing on 05/12/21 at 9:55. No remarkable changes Electronically Signed on 09-26-2021 12:07:55 EST by Jamari Snyder
[2021-09-26] MEDS: SODIUM CHLORIDE 0.9% INJ 10 ML SYR IV SCH (13:49)
[2021-09-26] MEDS: REMDESIVIR 100 MG in NS 250 ML IV SCH (13:49)
[2021-09-26] MEDS: LOSARTAN 50MG TABLET PO SCH (16:52)
[2021-09-26] MEDS: hydrOXYzine 25 MG TAB PO PRN (16:52)
[2021-09-26] MEDS: VENLAFAXINE **XR** 75MG CAPSULE PO SCH (16:52)
[2021-09-26] MEDS: RIVAROXABAN 20 MG TAB (XARELTO) PO SCH (16:52)
[2021-09-26] MEDS: METOPROLOL SUCC *XL* 25MG TAB (TopROL *XL*) PO SCH (16:53)
[2021-09-26] MEDS: SODIUM CHLORIDE 0.9% NASAL GEL 15GM (AYR) SCH (21:45)
[2021-09-27 04:00] VITALS: BP 128/59
[2021-09-27] MEDS: ALBUTEROL 90 MCG/ACT 8GM HFA INHALER INH SCH ×4 (07:44→19:46)
[2021-09-27 08:37] LABS: HEMATOCRIT 47.1 % (36.0-47.0); MEAN CORPUSCULAR HEMOGLOBIN 30.1 pg (27.0-33.0); MEAN CORPUSCULAR HGB CONC 31.8 g/dl (32.0-36.5); MEAN CORPUSCULAR VOLUME 94.6 fl (80.0-96.0); PLATELET COUNT, AUTOMATED 235 10^3/uL (150-450); RED BLOOD COUNT 4.98 10^6/uL (4.00-5.40); WHITE BLOOD COUNT 9.7 10^3/uL (4.0-10.0)
[2021-09-27] MEDS: BARICITINIB 2MG TABLET (OLUMIANT) FOR EUA PO SCH (08:48)
[2021-09-27] MEDS: PANTOPRAZOLE 40MG TAB (PROTONIX) PO SCH ×2 (08:48→20:11)
[2021-09-27] MEDS: hydrOXYzine 25 MG TAB PO PRN (08:48)
[2021-09-27] MEDS: SODIUM CHLORIDE 0.9% NASAL GEL 15GM (AYR) SCH ×4 (08:49→20:11)
[2021-09-27] MEDS: dexameTHASONE 4 MG/ML 1ML VIAL (J1100 PER 1MG) IV SCH ×2 (08:49→20:11)
[2021-09-27 08:51] LABS: INR 1.43; PROTHROMBIN TIME 17.9 SECONDS (12.7-14.5)
[2021-09-27 09:08] LABS: ATYPICAL LYMPH 5 % (0-5); LYMPHOCYTES 9 % (16-44); MONOCYTES 2 % (0-5); NEUTROPHILS 84 % (28-66)
[2021-09-27 09:11] LABS: PLATELET CLUMPS SMALL AMT; PLATELET ESTIMATE NORMAL (NORMAL)
[2021-09-27 09:42] LABS: BLOOD UREA NITROGEN 24 MG/DL (7-18); CARBON DIOXIDE LEVEL 27 MEQ/L (21-32); CHLORIDE LEVEL 106 MEQ/L (98-107); CREATININE FOR GFR 0.92 MG/DL (0.55-1.30); GLOMERULAR FILTRATION RATE > 60.0 (>39); GLUCOSE, FASTING 202 MG/DL (70-100); POTASSIUM SERUM 4.4 MEQ/L (3.5-5.1); SODIUM LEVEL 141 MEQ/L (136-145)
[2021-09-27 09:43] LABS: ALBUMIN 2.6 GM/DL (3.2-5.2); ALT/SGPT 39 U/L (12-78); BILIRUBIN,DIRECT 0.2 MG/DL (0.0-0.2); BILIRUBIN,TOTAL 0.5 MG/DL (0.2-1.0); FERRITIN 564 NG/ML (8-252); LDH LACTATE DEHYDROGENASE 327 U/L (84-246); MAGNESIUM LEVEL 2.4 MG/DL (1.8-2.4); NT-PRO BNP 115 PG/ML (<125); TOTAL PROTEIN 6.5 GM/DL (6.4-8.2)
[2021-09-27] MEDS: REMDESIVIR 100 MG in NS 250 ML IV SCH (12:57)
[2021-09-27] MEDS: SODIUM CHLORIDE 0.9% INJ 10 ML SYR IV SCH (12:57)
--- NOTE | 2021-09-27 13:06 | IPNPDOC ---
Subjective Date Seen The patient was seen on 09/27/21. Subjective Chief Complaint/HPI Patient reports that she is feeling a little better this morning. She said that she had a good night's rest. She remains on Vapotherm at 35 to 40 L / 100%. Updated Edkole regarding her current status. Objective Physical Examination General Exam: Positive: Alert, Cooperative, No Acute Distress Eye Exam: Positive: PERRLA, Conjunctiva & lids normal, EOMI; Negative: Sclera icteric ENT Exam: Positive: Atraumatic, Mucous membr. moist/pink, Pharynx Normal Neck Exam: Positive: Supple; Negative: JVD, thyromegaly Chest Exam: Positive: Normal air movement, Diminished, Other (Crackles at both the bases) Heart Exam: Positive: Rate Normal, Regular Rhythm, Normal S1, Normal S2; Negative: Murmurs, Rubs Abdomen Exam: Positive: Normal bowel sounds, Soft; Negative: Tenderness Extremity Exam: Negative: Clubbing, Cyanosis, Edema Skin Exam: Positive: Nl turgor and temperature; Negative: Breakdown, Lesion Psych Exam: Positive: Memory Intact, Oriented x 3 Assessment /Plan Assessment 71-year-old female with past medical history of morbid obesity/SEGUNDO on CPAP, A. fib on Xarelto, sick sinus syndrome status post pacemaker, hypertension, bipolar disorder, PTSD, borderline personality disorder, has been sick for the past 9 days. She started with malaise body aches chills and coughing. There is no phlegm production. She also has been nauseous with poor appetite but no diarrhea. She reports she has been so tired that she has been sleeping almost all day long. She was tested for Covid on 09/24/2021 and found to be positive so was sent for monoclonal antibody infusion by PMD to the infusion unit. On arrival to the infusion unit she was noted to be hypoxic at 87% in room air so was admitted to the hospital. Covid 19 pneumonia with ARDS Dexamethasone,remdesevir, olumiant. incentive spirometry and awake pronation procalcitonin not elevated. A. fib with history of sick sinus syndrome has a pacemaker in place Pulse rate is controlled We will continue in on beta-mateus and Xarelto Hypertension will continue metoprolol and lower dose of losartan for now. SEGUNDO May use on CPAP Bipolar disorder/borderline personality disorder/PTSD Continue venlafaxine GERD/esophageal stricture Continue PPI Plan/VTE VTE Prophylaxis Ordered?: Yes VS, I&O, 24H, Fishbone Vital Signs/I&O Vital Signs Date Time Temp Pulse Resp B/P (MAP) Pulse Ox O2 Delivery O2 Flow Rate FiO2 09/27/21 11:37 96 HVNI-Vapotherm 30.0 95 09/27/21 04:00 96.4 60 19 128/59 (82) I&O- Last 24 Hours up to 6 AM 09/27/21 06:00 Intake Total 720 ml Output Total 600 ml Balance 120 ml Laboratory Data 24H LABS Laboratory Tests 2 09/27/21 07:40: Neutrophils (%) (Auto) , Nucleated Red Blood Cells % (auto) 0.0, Neutrophils 84H, Lymphocytes (Manual) 9L, Monocytes (Manual) 2, Atypical Lymphocytes 5, Platelet Estimate NORMAL, Clumped Platelets SMALL AMT, Prothrombin Time 17.9H, Prothromb Time International Ratio 1.43, Activated Partial Thromboplast Time 37.0, Fibrinogen 578H, Anion Gap 8, Glomerular Filtration Rate > 60.0, Calcium Level 9.0, Magnesium Level 2.4, Ferritin 564H, Total Bilirubin 0.5, Direct Bilirubin 0.2, Aspartate Amino Transf (AST/SGOT) 45H, Alanine Aminotransferase (ALT/SGPT) 39, Alkaline Phosphatase 139H, Lactate Dehydrogenase 327H, Total Creatine Kinase 74, JS-Lub-X-Type Natriuretic Peptide 115, Total Protein 6.5, Albumin 2.6L, Albumin/Globulin Ratio 0.7L CBC/BMP Laboratory Tests 09/27/21 07:40 Microbiology Microbiology 09/25/21 Blood Culture - Preliminary, Resulted No Growth after 48 hours. All Specime... Ruthie Lynne MD Sep 27, 2021 13:06
[2021-09-27 14:00] VITALS: BP 134/60
[2021-09-27] MEDS: RIVAROXABAN 20 MG TAB (XARELTO) PO SCH (16:30)
[2021-09-27] MEDS: METOPROLOL SUCC *XL* 25MG TAB (TopROL *XL*) PO SCH (16:30)
[2021-09-27] MEDS: VENLAFAXINE **XR** 75MG CAPSULE PO SCH (16:30)
[2021-09-27] MEDS: LOSARTAN 50MG TABLET PO SCH (16:30)
[2021-09-27 20:00] VITALS: BP 114/59
[2021-09-28 04:00] VITALS: BP 95/62
[2021-09-28 06:38] LABS: HEMATOCRIT 44.1 % (36.0-47.0); HEMOGLOBIN 14.2 g/dl (12.0-15.5); MEAN CORPUSCULAR HEMOGLOBIN 30.5 pg (27.0-33.0); MEAN CORPUSCULAR HGB CONC 32.2 g/dl (32.0-36.5); MEAN CORPUSCULAR VOLUME 94.8 fl (80.0-96.0); PLATELET COUNT, AUTOMATED 251 10^3/uL (150-450); RED BLOOD COUNT 4.65 10^6/uL (4.00-5.40); WHITE BLOOD COUNT 10.9 10^3/uL (4.0-10.0)
[2021-09-28 06:55] LABS: BLOOD UREA NITROGEN 29 MG/DL (7-18); CALCIUM LEVEL 9.1 MG/DL (8.8-10.2); CARBON DIOXIDE LEVEL 27 MEQ/L (21-32); CHLORIDE LEVEL 108 MEQ/L (98-107); CREATININE FOR GFR 0.95 MG/DL (0.55-1.30); GLOMERULAR FILTRATION RATE > 60.0 (>39); GLUCOSE, FASTING 227 MG/DL (70-100); MAGNESIUM LEVEL 2.5 MG/DL (1.8-2.4); POTASSIUM SERUM 4.8 MEQ/L (3.5-5.1); SODIUM LEVEL 140 MEQ/L (136-145)
[2021-09-28 07:15] LABS: LYMPHOCYTES 14 % (16-44); MONOCYTES 1 % (0-5); NEUTROPHILS 85 % (28-66); PLATELET ESTIMATE NORMAL (NORMAL)
[2021-09-28] MEDS: ALBUTEROL 90 MCG/ACT 8GM HFA INHALER INH SCH ×4 (07:40→19:22)
[2021-09-28] MEDS: BARICITINIB 2MG TABLET (OLUMIANT) FOR EUA PO SCH (07:55)
[2021-09-28] MEDS: PANTOPRAZOLE 40MG TAB (PROTONIX) PO SCH ×2 (07:55→20:54)
[2021-09-28] MEDS: dexameTHASONE 4 MG/ML 1ML VIAL (J1100 PER 1MG) IV SCH ×2 (07:56→20:54)
[2021-09-28] MEDS: SODIUM CHLORIDE 0.9% NASAL GEL 15GM (AYR) SCH ×4 (07:56→20:54)
[2021-09-28] MEDS ORDERED: GLUCOSE 4GM CHEW TABLET PO PRN (12:40)
[2021-09-28] MEDS ORDERED: DEXTROSE 50% 50 ML SYRINGE IV PRN (12:40)
[2021-09-28] MEDS ORDERED: GLUCAGON INJ 1MG VIAL SC PRN (12:40)
--- NOTE | 2021-09-28 12:42 | IPNPDOC ---
Subjective Date Seen The patient was seen on 09/28/21. Subjective Chief Complaint/HPI Continues to have high oxygen requirements. Remains on Vapotherm 40 L / 100%. Objective Physical Examination General Exam: Positive: Alert, Cooperative, No Acute Distress Eye Exam: Positive: PERRLA, Conjunctiva & lids normal, EOMI; Negative: Sclera icteric ENT Exam: Positive: Atraumatic, Mucous membr. moist/pink, Pharynx Normal Neck Exam: Positive: Supple; Negative: JVD, thyromegaly Chest Exam: Positive: Normal air movement, Diminished, Other (Crackles at both the bases) Heart Exam: Positive: Rate Normal, Regular Rhythm, Normal S1, Normal S2; Negative: Murmurs, Rubs Abdomen Exam: Positive: Normal bowel sounds, Soft; Negative: Tenderness Extremity Exam: Negative: Clubbing, Cyanosis, Edema Skin Exam: Positive: Nl turgor and temperature; Negative: Breakdown, Lesion Psych Exam: Positive: Memory Intact, Oriented x 3 Assessment /Plan Assessment 71-year-old female with past medical history of morbid obesity/SEGUNDO on CPAP, A. fib on Xarelto, sick sinus syndrome status post pacemaker, hypertension, bipolar disorder, PTSD, borderline personality disorder, has been sick for the past 9 days. She started with malaise body aches chills and coughing. There is no phlegm production. She also has been nauseous with poor appetite but no diarrhea. She reports she has been so tired that she has been sleeping almost all day long. She was tested for Covid on 09/24/2021 and found to be positive so was sent for monoclonal antibody infusion by PMD to the infusion unit. On arrival to the infusion unit she was noted to be hypoxic at 87% in room air so was admitted to the hospital. Covid 19 pneumonia with ARDS Dexamethasone,remdesevir, olumiant. incentive spirometry and awake pronation procalcitonin not elevated. A. fib with history of sick sinus syndrome has a pacemaker in place Pulse rate is controlled We will continue in on beta-mateus and Xarelto Hypertension will continue metoprolol only if tolerated Pressure has been low so we will stop losartan SEGUNDO May use on CPAP Bipolar disorder/borderline personality disorder/PTSD Continue venlafaxine GERD/esophageal stricture Continue PPI Increased blood sugar levels Likely due to steroid We will place on lispro as per sliding scale Plan/VTE VTE Prophylaxis Ordered?: Yes VS, I&O, 24H, Fishbone Vital Signs/I&O Vital Signs Date Time Temp Pulse Resp B/P (MAP) Pulse Ox O2 Delivery O2 Flow Rate FiO2 09/28/21 12:18 89 HVNI-Vapotherm 40.0 100 09/28/21 04:00 97.4 69 18 95/62 (73) I&O- Last 24 Hours up to 6 AM 09/28/21 06:00 Intake Total 910 ml Output Total 600 ml Balance 310 ml Laboratory Data 24H LABS Laboratory Tests 2 09/28/21 06:08: Neutrophils (%) (Auto) , Nucleated Red Blood Cells % (auto) 0.0, Neutrophils 85H, Lymphocytes (Manual) 14L, Monocytes (Manual) 1, Red Blood Cell Morphology NORMAL, Platelet Estimate NORMAL, Anion Gap 5L, Glomerular Filtration Rate > 60.0, Calcium Level 9.1, Magnesium Level 2.5H CBC/BMP Laboratory Tests 09/28/21 06:08 Microbiology Microbiology 09/25/21 Blood Culture - Preliminary, Resulted No Growth after 72 hours. All specime... Ruthie Lynne MD Sep 28, 2021 12:42
[2021-09-28 13:00] VITALS: O2SAT 91
[2021-09-28] MEDS: REMDESIVIR 100 MG in NS 250 ML IV SCH (13:17)
[2021-09-28] MEDS: SODIUM CHLORIDE 0.9% INJ 10 ML SYR IV SCH (13:18)
[2021-09-28 14:31] VITALS: BP 132/60
[2021-09-28] MEDS: VENLAFAXINE **XR** 75MG CAPSULE PO SCH (16:55)
[2021-09-28] MEDS: RIVAROXABAN 20 MG TAB (XARELTO) PO SCH (16:55)
[2021-09-28] MEDS: METOPROLOL SUCC *XL* 25MG TAB (TopROL *XL*) PO SCH (16:55)
[2021-09-28] MEDS: HumaLOG INSULIN (NovoLOG) PER UNIT SC SCH ×2 (17:39→20:57)
[2021-09-28 17:54] VITALS: O2SAT 91
[2021-09-28 18:16] VITALS: O2SAT 89
[2021-09-28 20:00] VITALS: BP 116/51
[2021-09-29 04:00] VITALS: BP 128/60
[2021-09-29 06:46] LABS: HEMATOCRIT 42.7 % (36.0-47.0); HEMOGLOBIN 13.9 g/dl (12.0-15.5); MEAN CORPUSCULAR HEMOGLOBIN 30.7 pg (27.0-33.0); MEAN CORPUSCULAR HGB CONC 32.6 g/dl (32.0-36.5); MEAN CORPUSCULAR VOLUME 94.3 fl (80.0-96.0); PLATELET COUNT, AUTOMATED 240 10^3/uL (150-450); RED BLOOD COUNT 4.53 10^6/uL (4.00-5.40); WHITE BLOOD COUNT 11.7 10^3/uL (4.0-10.0)
[2021-09-29 06:58] LABS: INR 1.81; PROTHROMBIN TIME 21.4 SECONDS (12.7-14.5)
[2021-09-29 06:59] LABS: PARTIAL THROMBOPLASTIN TIME 37.1 SECONDS (25.9-37.0)
[2021-09-29 07:15] LABS: ALBUMIN 2.2 GM/DL (3.2-5.2); ALT/SGPT 34 U/L (12-78); BILIRUBIN,DIRECT 0.2 MG/DL (0.0-0.2); BILIRUBIN,TOTAL 0.6 MG/DL (0.2-1.0); BLOOD UREA NITROGEN 28 MG/DL (7-18); CALCIUM LEVEL 8.7 MG/DL (8.8-10.2); CARBON DIOXIDE LEVEL 25 MEQ/L (21-32); CHLORIDE LEVEL 110 MEQ/L (98-107); CREATININE FOR GFR 0.97 MG/DL (0.55-1.30); FERRITIN 512 NG/ML (8-252); GLOMERULAR FILTRATION RATE > 60.0 (>39); GLUCOSE, FASTING 227 MG/DL (70-100); LDH LACTATE DEHYDROGENASE 327 U/L (84-246); LYMPHOCYTES 13 % (16-44); MAGNESIUM LEVEL 2.3 MG/DL (1.8-2.4); MONOCYTES 2 % (0-5); NEUTROPHILS 85 % (28-66); NT-PRO BNP 255 PG/ML (<125); PLATELET ESTIMATE NORMAL (NORMAL); POTASSIUM SERUM 4.8 MEQ/L (3.5-5.1); SODIUM LEVEL 141 MEQ/L (136-145); TOTAL PROTEIN 6.3 GM/DL (6.4-8.2)
[2021-09-29] MEDS: ALBUTEROL 90 MCG/ACT 8GM HFA INHALER INH SCH ×4 (07:37→20:53)
[2021-09-29 07:40] VITALS: BP 126/65
[2021-09-29 07:59] LABS: ABG BASE EXCESS -1.4 (-2.0-2.0); ABG HCO3 22.7 MEQ/L (22.0-26.0); ABG O2 SATURATION 91.5 % (95.0-99.0); ABG PARTIAL PRESSURE CO2 36.3 mmHg (35.0-45.0); ABG PARTIAL PRESSURE O2 61.6 mmHg (75.0-100.0); ABG STANDARD HCO3 23.2 MEQ/L (22.0-26.0); ABG TOTAL CO2 23.8 MEQ/L (23.0-31.0); ABG pH (ARTERIAL) 7.414 UNITS (7.350-7.450)
[2021-09-29] MEDS: PANTOPRAZOLE 40MG TAB (PROTONIX) PO SCH ×2 (08:24→19:55)
[2021-09-29] MEDS: BARICITINIB 2MG TABLET (OLUMIANT) FOR EUA PO SCH (08:24)
[2021-09-29] MEDS: dexameTHASONE 4 MG/ML 1ML VIAL (J1100 PER 1MG) IV SCH ×2 (08:24→19:55)
[2021-09-29] MEDS: HumaLOG INSULIN (NovoLOG) PER UNIT SC SCH ×4 (08:24→19:55)
[2021-09-29] MEDS: SODIUM CHLORIDE 0.9% NASAL GEL 15GM (AYR) SCH ×4 (08:25→19:56)
[2021-09-29 10:35] VITALS: BP 115/93
--- NOTE | 2021-09-29 11:13 | REP ---
INDICATION: Hypoxemia COMPARISON: 09/25/2021 TECHNIQUE: Portable AP view of the chest FINDINGS: Diffuse bilateral infiltrates consistent with the given history of COVID-19 pulmonary disease. Mediastinum and cardiac silhouette are stable and within normal limits. IMPRESSION: Bilateral infiltrates consistent with the given history of COVID-19 pulmonary disease. <Electronically signed by Pepe Saucedo > 09/29/21 1102
[2021-09-29 12:00] VITALS: BP 127/59
--- NOTE | 2021-09-29 13:08 | CCN ---
CRITICAL CARE NOTE DATE: 09/29/2021 START TIME: 10:20 STOP TIME: 10:58 SUBJECTIVE: I was asked to attend Sue Hua here in the Intensive Care Unit. Patient has been examined and chart reviewed. She was brought down from the COVID floor. In essence, this is a 71-year-old female admitted on the of this month with new onset COVID. She was ill for about a week and then diagnosed on the . She presented for monoclonal antibody infusion but was found to be hypoxic and short of breath and therefore admitted. She is known to have underlying SEGUNDO syndrome on home CPAP, underlying atrial fibrillation, chronically on Xarelto, indwelling pacemaker, hypertension, morbid obesity, underlying bipolar disorder with PTSD. She has been treated since admission with b.i.d. Decadron, Remdesivir and Baricitinib. She remains on her Xarelto and has been on ulcer and DVT prophylaxis. Chest x-ray just done shows progression of her bilateral patchy infiltrates, clearly worse than on presentation on the . Currently on exam, she is awake, alert and appropriate. She is currently quite comfortable. She is on a non-rebreather and max Vapotherm and currently her oxygen saturation is 96%. She complains bitterly of her mouth being dry. T-max overnight 97.5, blood pressure 115 to 120s, heart rate generally 60. Respiratory rate 20-24. Most recent laboratories showed a white blood cell count of 11.7, hemoglobin 13.9 and platelet count of 240,000, 85% segs, no bands, sodium 141, potassium 4.8, chloride 110, CO2 25, BUN 28, creatinine 0.97. Blood gas done this morning on Vapotherm and supplemental oxygen shows a pH of 7.414, pCO2 of 36.3 and pO2 of 61.6. OBJECTIVE: On exam, she is awake, alert and appropriate, pupils react, sclera are clear. Trachea is in the midline. Chest is clear anteriorly. There is some faint basilar crackles. Pacemaker generator palpable in the left pectoralis region. No other focal adventitious breath sounds are identified. Cardiac exam: Distant, currently paced. Peripheral pulses palpable. No edema. Abdomen is obese, soft with active bowel sounds. No obvious organomegaly or masses. Extremities: Without cyanosis or clubbing. Neurologic: She is awake, alert and appropriate. Psychiatric: Normal mood and affect. ASSESSMENT: Most pressing problems requiring my presence at the bedside: 1. Hypoxemic respiratory failure. 2. COVID pneumonia with early ARDS. 3. SEGUNDO. 4. Chronic anticoagulation. 5. Indwelling pacemaker. At this point, she is oxygenating reasonably well. She is comfortable. I would continue her CPAP as she does at home for naps and h.s. Certainly, if she does not maintain her oxygen saturation on her current supplemental oxygen then I would use her CPAP as she uses at home. I am told that it is 10 cm of water pressure, but will try to investigate that further. If need be, she certainly can start with table top but if not then we can certainly switch to one of the other devices where we can closely monitor her tidal volumes. Overall, she is critically ill in view of her above status and comorbid risk factors. Certainly, there is a significant likelihood she may progress to intubation. I am unsure of her vaccination status but will get that clarified. I left the bedside at 10:58 hours. Thirty-eight minutes of critical care time at the bedside not including procedures.
[2021-09-29] MEDS: SODIUM CHLORIDE 0.9% INJ 10 ML SYR IV SCH (15:00)
[2021-09-29] MEDS: REMDESIVIR 100 MG in NS 250 ML IV SCH (15:04)
[2021-09-29] MEDS: METOPROLOL SUCC *XL* 25MG TAB (TopROL *XL*) PO SCH (15:05)
[2021-09-29] MEDS: RIVAROXABAN 20 MG TAB (XARELTO) PO SCH (15:05)
[2021-09-29] MEDS: VENLAFAXINE **XR** 75MG CAPSULE PO SCH (15:05)
[2021-09-29 16:01] VITALS: BP 130/59
--- NOTE | 2021-09-29 19:26 | IPNPDOC ---
Text Note Date of Service The patient was seen on 09/29/21. NOTE Subjective: -No acute events -Had worsening hypoxemia overnight, on 100% FiO2, 40L vapotherm with nursing reporting that she had desaturated while on CPAP at her baseline. -Transferred her to ICU, consulted pulm Objective: Vitals: see below General: Alert, Cooperative, No Acute Distress Eyes: PERRLA, Conjunctiva & lids normal, EOMI, anicteric ENT: Atraumatic, Mucous membr. moist/pink, Pharynx Normal Neck: Supple, no JVD, thyromegaly Chest: Normal air movement, Diminished throughout, some crackling at the bases, no wheezing Heart: Rate Normal, Regular Rhythm, Normal S1, Normal S2, no noted m/r/g Abdomen: Normal bowel sounds, Soft, obese, NTND Extremities: WWP, no edema Skin: Nl turgor and temperature Psych: Aox3 Labs: Reviewed Assessment: 71-year-old W with past medical history of morbid obesity/SEGUNDO on CPAP, A. fib on Xarelto, sick sinus syndrome status post pacemaker, hypertension, bipolar disorder, PTSD, borderline personality disorder who was admitted for covid-19 PNA c/b ARDS now in the ICU on max vapotherm. Covid 19 pneumonia with ARDS -Dexamethasone,remdesevir, olumiant. -incentive spirometry and awake pronation -procalcitonin not elevated. No antibiotics -consulted pulmonology Chronic A. fib with history of sick sinus syndrome has a pacemaker in place -Pulse rate is controlled -Continue beta-mateus and Xarelto Hypertension -will continue metoprolol w/ hold parameters -held ARB SEGUNDO -Nocturnal CPAP Bipolar disorder/borderline personality disorder/PTSD -Continue venlafaxine GERD/esophageal stricture -Continue PPI Increased blood sugar levels -lispro as per sliding scale w/ FSBG ACHS VS,Fishbone, I+O VS, Fishbone, I+O Laboratory Tests 09/29/21 06:23 Vital Signs Date Time Temp Pulse Resp B/P (MAP) Pulse Ox O2 Delivery O2 Flow Rate FiO2 09/29/21 16:49 96 HVNI-Vapotherm 40.0 100 09/29/21 16:01 97.4 60 18 130/59 (82) I&O- Last 24 Hours up to 6 AM 09/29/21 06:00 Intake Total 1470 ml Balance 1470 ml [id number],RICHMOND V. MD Sep 29, 2021 19:26
[2021-09-29 20:00] VITALS: BP 142/63
[2021-09-30] VITALS (7 sets, daily range): BP systolic 130–148; BP diastolic 60–76
[2021-09-30 04:59] LABS: BASO % 0.1 % (0.0-1.0); HEMATOCRIT 42.9 % (36.0-47.0); HEMOGLOBIN 13.8 g/dl (12.0-15.5); LYMPH # 0.9 10^3/uL (1.5-5.0); LYMPH % 6.7 % (24.0-44.0); MEAN CORPUSCULAR HEMOGLOBIN 30.1 pg (27.0-33.0); MEAN CORPUSCULAR HGB CONC 32.2 g/dl (32.0-36.5); MEAN CORPUSCULAR VOLUME 93.5 fl (80.0-96.0); MONO # 0.6 10^3/uL (0.0-0.8); MONO % 4.9 % (2.0-8.0); NEUTROPHILS # 11.2 10^3/uL (1.5-8.5); NEUTROPHILS % 87.4 % (36.0-66.0); PLATELET COUNT, AUTOMATED 255 10^3/uL (150-450); RED BLOOD COUNT 4.59 10^6/uL (4.00-5.40); WHITE BLOOD COUNT 12.8 10^3/uL (4.0-10.0)
[2021-09-30 05:15] LABS: CALCIUM LEVEL 8.9 MG/DL (8.8-10.2); CREATININE FOR GFR 1.02 MG/DL (0.55-1.30); GLOMERULAR FILTRATION RATE 56.7 (>39); MAGNESIUM LEVEL 2.4 MG/DL (1.8-2.4)
[2021-09-30] MEDS: HumaLOG INSULIN (NovoLOG) PER UNIT SC SCH ×4 (08:48→21:00)
[2021-09-30] MEDS: PANTOPRAZOLE 40MG TAB (PROTONIX) PO SCH ×2 (08:49→21:02)
[2021-09-30] MEDS: dexameTHASONE 4 MG/ML 1ML VIAL (J1100 PER 1MG) IV SCH ×2 (08:49→21:02)
[2021-09-30] MEDS: ALBUTEROL 90 MCG/ACT 8GM HFA INHALER INH SCH ×4 (08:57→18:09)
[2021-09-30] MEDS: SODIUM CHLORIDE 0.9% NASAL GEL 15GM (AYR) SCH ×4 (09:00→21:02)
[2021-09-30] MEDS: BARICITINIB 2MG TABLET (OLUMIANT) FOR EUA PO SCH (11:02)
--- NOTE | 2021-09-30 11:03 | CCN ---
CRITICAL CARE NOTE DATE: 09/30/2021 SUBJECTIVE: I again attended Sue Hua here in the Intensive Care Unit. Patient has been examined and chart reviewed. I spoke at length with her primary service as well as the nurse at the bedside. She required an increase in her CPAP pressures last evening for desaturations. Currently, she is 97% saturated on Vapotherm. She is awake, alert, comfortable, ate breakfast and easily conversant. T-max overnight 98.3, blood pressure 130 to 140s, heart rate 50s to 60s, currently fully paced. Respiratory rate 18 to 24 without the use of accessory muscles. I and O's midnight to midnight: 1370 ml in with 790 ml out. No new chest x-ray today. OBJECTIVE: On exam, she is awake, alert and appropriate, quite comfortable. Pupils react, sclera clear. Trachea is midline. Chest is clear anteriorly. There are some faint dependent crackles. No other focal adventitious breath sounds were identified. Cardiac exam: Currently regular. Pacemaker generator is palpable in the left pectoralis region. Peripheral pulses are palpable. No edema. Abdomen is morbidly obese, soft with active bowel sounds, no convincing organomegaly or masses. Extremities: No cyanosis or clubbing. Neurologic: He is awake, alert and appropriate. Psych: Normal mood and affect. Laboratories have been reviewed and are in the electronic medical record. IMPRESSION: 1. Hypoxemic respiratory failure, multifactorial. 2. SEGUNDO on CPAP at home. 3. COVID pneumonia. 4. Chronic anticoagulation. 5. Indwelling pacemaker. RECOMMENDATIONS: At this point, she is oxygenating reasonably well. She did require an increase in her CPAP last evening but currently is able to maintain her saturations quite nicely on just Vapotherm. I believe it is reasonable to allow her to downgrade to PCU status. I am in full agreement with her current regimen from a medical standpoint. She remains on Remdesivir, Dexamethasone and Baricitinib. At this point, will continue to follow as needed. Should she look at least this good tomorrow then I will follow her from afar. She is to continue her current pressure therapy. Further recommendations will be made in the progress record as new information becomes available.
--- NOTE | 2021-09-30 13:41 | IPNPDOC ---
Text Note Date of Service The patient was seen on 09/30/21. NOTE Subjective: -No acute events -Continued to be on max vapotherm at 100% FiO2, 40L/min Objective: Vitals: see below General: Alert, Cooperative, No Acute Distress Eyes: PERRLA, Conjunctiva & lids normal, EOMI, anicteric ENT: Atraumatic, Mucous membr. moist/pink, Pharynx Normal Neck: Supple, no JVD, thyromegaly Chest: Normal air movement, Diminished throughout, some crackling at the bases, no wheezing Heart: Rate Normal, Regular Rhythm, Normal S1, Normal S2, no noted m/r/g Abdomen: Normal bowel sounds, Soft, obese, NTND Extremities: WWP, no edema Skin: Nl turgor and temperature Psych: Aox3 Labs: Reviewed Assessment: 71-year-old W with past medical history of morbid obesity/SEGUNDO on CPAP, A. fib on Xarelto, sick sinus syndrome status post pacemaker, hypertension, bipolar disorder, PTSD, borderline personality disorder who was admitted for covid-19 PNA c/b ARDS now in the ICU on max vapotherm. Covid 19 pneumonia with ARDS -Dexamethasone,remdesevir, olumiant. -incentive spirometry and awake pronation -procalcitonin not elevated. No antibiotics -consulted pulmonology -on vapotherm Chronic A. fib with history of sick sinus syndrome has a pacemaker in place -Pulse rate is controlled -Continue beta-mateus and Xarelto Hypertension -will continue metoprolol w/ hold parameters -held ARB SEGUNDO -Nocturnal CPAP Bipolar disorder/borderline personality disorder/PTSD -Continue venlafaxine GERD/esophageal stricture -Continue PPI Increased blood sugar levels -lispro as per sliding scale w/ FSBG ACHS VS,Fishbone, I+O VS, Fishbone, I+O Laboratory Tests 09/30/21 04:36 Vital Signs Date Time Temp Pulse Resp B/P (MAP) Pulse Ox O2 Delivery O2 Flow Rate FiO2 09/30/21 08:58 88 HVNI-Vapotherm 40.0 100 09/30/21 04:00 97.9 60 18 130/60 (83) I&O- Last 24 Hours up to 6 AM 09/30/21 06:00 Intake Total 1210 ml Output Total 1122 ml Balance 88 ml RICHMOND GONZALEZ MD Sep 30, 2021 09:48
[2021-09-30 16:08] LABS: BODY FLUID CULTURE Not indicated. (.); LEGIONELLA ANTIGEN URINE Negative (Negative); ORGANISM ID Not indicated. (.); SPECIMEN SOURCE Urine (.); URINE STREP PNEUMONIAE ANTIGEN Negative (Negative)
[2021-09-30] MEDS: RIVAROXABAN 20 MG TAB (XARELTO) PO SCH (17:10)
[2021-09-30] MEDS: VENLAFAXINE **XR** 75MG CAPSULE PO SCH (17:10)
[2021-09-30] MEDS: METOPROLOL SUCC *XL* 25MG TAB (TopROL *XL*) PO SCH (17:11)
[2021-10-01] VITALS (10 sets, daily range): BP systolic 125–148; BP diastolic 60–90
[2021-10-01 04:47] LABS: BASO % 0.1 % (0.0-1.0); EOS % 0.1 % (0.0-3.0); HEMATOCRIT 43.3 % (36.0-47.0); HEMOGLOBIN 14.1 g/dl (12.0-15.5); LYMPH # 0.7 10^3/uL (1.5-5.0); LYMPH % 6.3 % (24.0-44.0); MEAN CORPUSCULAR HEMOGLOBIN 30.3 pg (27.0-33.0); MEAN CORPUSCULAR HGB CONC 32.6 g/dl (32.0-36.5); MEAN CORPUSCULAR VOLUME 93.1 fl (80.0-96.0); MONO # 0.4 10^3/uL (0.0-0.8); MONO % 3.5 % (2.0-8.0); NEUTROPHILS # 10.1 10^3/uL (1.5-8.5); NEUTROPHILS % 89.5 % (36.0-66.0); PLATELET COUNT, AUTOMATED 244 10^3/uL (150-450); RED BLOOD COUNT 4.65 10^6/uL (4.00-5.40); WHITE BLOOD COUNT 11.2 10^3/uL (4.0-10.0)
[2021-10-01 04:58] LABS: INR 1.83; PROTHROMBIN TIME 21.6 SECONDS (12.7-14.5)
[2021-10-01 04:59] LABS: PARTIAL THROMBOPLASTIN TIME 34.8 SECONDS (25.9-37.0)
[2021-10-01 05:18] LABS: ALBUMIN 2.3 GM/DL (3.2-5.2); ALT/SGPT 39 U/L (12-78); BILIRUBIN,DIRECT 0.4 MG/DL (0.0-0.2); BILIRUBIN,TOTAL 0.9 MG/DL (0.2-1.0); BLOOD UREA NITROGEN 26 MG/DL (7-18); CALCIUM LEVEL 8.6 MG/DL (8.8-10.2); CARBON DIOXIDE LEVEL 25 MEQ/L (21-32); CHLORIDE LEVEL 108 MEQ/L (98-107); CREATININE FOR GFR 0.95 MG/DL (0.55-1.30); FERRITIN 691 NG/ML (8-252); GLOMERULAR FILTRATION RATE > 60.0 (>39); GLUCOSE, FASTING 196 MG/DL (70-100); LDH LACTATE DEHYDROGENASE 360 U/L (84-246); MAGNESIUM LEVEL 2.3 MG/DL (1.8-2.4); NT-PRO BNP 192 PG/ML (<125); POTASSIUM SERUM 5.4 MEQ/L (3.5-5.1); SODIUM LEVEL 140 MEQ/L (136-145)
[2021-10-01] MEDS: SODIUM CHLORIDE 0.9% NASAL GEL 15GM (AYR) SCH ×4 (07:58→21:40)
[2021-10-01] MEDS: BARICITINIB 2MG TABLET (OLUMIANT) FOR EUA PO SCH (07:59)
[2021-10-01] MEDS: dexameTHASONE 4 MG/ML 1ML VIAL (J1100 PER 1MG) IV SCH ×2 (07:59→21:39)
[2021-10-01] MEDS: PANTOPRAZOLE 40MG TAB (PROTONIX) PO SCH ×2 (07:59→21:39)
[2021-10-01] MEDS: HumaLOG INSULIN (NovoLOG) PER UNIT SC SCH ×4 (08:00→21:00)
[2021-10-01] MEDS: ALBUTEROL 90 MCG/ACT 8GM HFA INHALER INH SCH ×4 (08:01→19:31)
--- NOTE | 2021-10-01 13:40 | IPNPDOC ---
Text Note Date of Service The patient was seen on 10/01/21. NOTE Subjective: -No acute events -Now on vapotherm at 90% FiO2, 40L/min Objective: Vitals: see below General: Alert, Cooperative, No Acute Distress Eyes: PERRLA, Conjunctiva & lids normal, EOMI, anicteric ENT: Atraumatic, Mucous membr. moist/pink, Pharynx Normal Neck: Supple, no JVD, thyromegaly Chest: Normal air movement, Diminished throughout, some crackling at the bases, no wheezing Heart: Rate Normal, Regular Rhythm, Normal S1, Normal S2, no noted m/r/g Abdomen: Normal bowel sounds, Soft, obese, NTND Extremities: WWP, no edema Skin: Nl turgor and temperature Psych: Aox3 Labs: Reviewed Assessment: 71-year-old W with past medical history of morbid obesity/SEGUNDO on CPAP, A. fib on Xarelto, sick sinus syndrome status post pacemaker, hypertension, bipolar disorder, PTSD, borderline personality disorder who was admitted for covid-19 PNA c/b ARDS now in the ICU on max vapotherm. Covid 19 pneumonia with ARDS -Dexamethasone,remdesevir, olumiant. -incentive spirometry and awake pronation -procalcitonin not elevated. No antibiotics -consulted pulmonology -on vapotherm with slightly improving O2 requirements Chronic A. fib with history of sick sinus syndrome has a pacemaker in place -Pulse rate is controlled -Continue beta-mateus and Xarelto Hypertension -will continue metoprolol w/ hold parameters -held ARB SEGUNDO -Nocturnal CPAP Bipolar disorder/borderline personality disorder/PTSD -Continue venlafaxine GERD/esophageal stricture -Continue PPI Increased blood sugar levels -lispro as per sliding scale w/ FSBG ACHS I have been unable to reach Mr. Hua, the patient's for the last 3 days and being forwarded to voicemails on both the house and cellphone. I spoke with the patient about it and she reassured me that she has been speaking with him on a daily basis. VS,Fishbone, I+O VS, Fishbone, I+O Laboratory Tests 10/01/21 04:32 Vital Signs Date Time Temp Pulse Resp B/P (MAP) Pulse Ox O2 Delivery O2 Flow Rate FiO2 10/01/21 09:00 60 20 132/60 (84) 92 10/01/21 08:02 HVNI-Vapotherm 40.0 90 10/01/21 08:00 96.9 I&O- Last 24 Hours up to 6 AM 10/01/21 06:00 Intake Total 960 ml Output Total 1130 ml Balance -170 ml RICHMOND GONZALEZ MD Oct 01, 2021 10:24
[2021-10-01] MEDS: VENLAFAXINE **XR** 75MG CAPSULE PO SCH (16:17)
[2021-10-01] MEDS: RIVAROXABAN 20 MG TAB (XARELTO) PO SCH (16:18)
[2021-10-01] MEDS: METOPROLOL SUCC *XL* 25MG TAB (TopROL *XL*) PO SCH (16:18)
[2021-10-01] MEDS: hydrOXYzine 25 MG TAB PO PRN (21:40)
[2021-10-02] VITALS (7 sets, daily range): BP systolic 123–149; BP diastolic 59–88; O2SAT 94
[2021-10-02 04:48] LABS: BASO % 0.1 % (0.0-1.0); EOS % 0.2 % (0.0-3.0); HEMATOCRIT 41.1 % (36.0-47.0); HEMOGLOBIN 13.7 g/dl (12.0-15.5); LYMPH # 0.7 10^3/uL (1.5-5.0); MEAN CORPUSCULAR HEMOGLOBIN 30.5 pg (27.0-33.0); MEAN CORPUSCULAR HGB CONC 33.3 g/dl (32.0-36.5); MEAN CORPUSCULAR VOLUME 91.5 fl (80.0-96.0); MONO # 0.4 10^3/uL (0.0-0.8); MONO % 3.4 % (2.0-8.0); NEUTROPHILS % 89.1 % (36.0-66.0); PLATELET COUNT, AUTOMATED 255 10^3/uL (150-450); RED BLOOD COUNT 4.49 10^6/uL (4.00-5.40); WHITE BLOOD COUNT 11.2 10^3/uL (4.0-10.0)
[2021-10-02 05:06] LABS: BLOOD UREA NITROGEN 23 MG/DL (7-18); CALCIUM LEVEL 8.6 MG/DL (8.8-10.2); CARBON DIOXIDE LEVEL 26 MEQ/L (21-32); CHLORIDE LEVEL 105 MEQ/L (98-107); CREATININE FOR GFR 0.82 MG/DL (0.55-1.30); GLOMERULAR FILTRATION RATE > 60.0 (>39); GLUCOSE, FASTING 199 MG/DL (70-100); MAGNESIUM LEVEL 2.3 MG/DL (1.8-2.4); SODIUM LEVEL 136 MEQ/L (136-145)
[2021-10-02] MEDS: ALBUTEROL 90 MCG/ACT 8GM HFA INHALER INH SCH ×4 (08:06→19:59)
[2021-10-02] MEDS: dexameTHASONE 4 MG/ML 1ML VIAL (J1100 PER 1MG) IV SCH ×2 (08:19→20:23)
[2021-10-02] MEDS: HumaLOG INSULIN (NovoLOG) PER UNIT SC SCH ×4 (08:20→20:15)
[2021-10-02] MEDS: SODIUM CHLORIDE 0.9% NASAL GEL 15GM (AYR) SCH ×4 (08:21→20:25)
[2021-10-02] MEDS: BARICITINIB 2MG TABLET (OLUMIANT) FOR EUA PO SCH (08:21)
[2021-10-02] MEDS: PANTOPRAZOLE 40MG TAB (PROTONIX) PO SCH ×2 (08:21→20:23)
--- NOTE | 2021-10-02 10:04 | IPNPDOC ---
Subjective Date Seen The patient was seen on 10/02/21. Subjective Chief Complaint/HPI Feeling better. Improving oxygenation. No acute overnight events. use CPAP at night. Objective Physical Examination General Exam: Positive: Alert, Cooperative, No Acute Distress Eye Exam: Positive: PERRLA, Conjunctiva & lids normal, EOMI; Negative: Sclera icteric ENT Exam: Positive: Atraumatic, Mucous membr. moist/pink, Pharynx Normal Neck Exam: Positive: Supple; Negative: JVD, thyromegaly Chest Exam: Positive: Normal air movement, Diminished Heart Exam: Positive: Rate Normal, Regular Rhythm, Normal S1, Normal S2; Negative: Murmurs, Rubs Abdomen Exam: Positive: Normal bowel sounds, Soft; Negative: Tenderness Extremity Exam: Negative: Clubbing, Cyanosis, Edema Skin Exam: Positive: Nl turgor and temperature; Negative: Breakdown, Lesion Psych Exam: Positive: Memory Intact, Oriented x 3 Assessment /Plan Assessment 71-year-old W with past medical history of morbid obesity/SEGUNDO on CPAP, A. fib on Xarelto, sick sinus syndrome status post pacemaker, hypertension, bipolar disorder, PTSD, borderline personality disorder who was admitted for covid-19 PNA went into ARDS. Now improving oxygenation. Covid 19 pneumonia with ARDS -Dexamethasone,remdesevir, olumiant. -incentive spirometry and awake pronation -procalcitonin not elevated. No antibiotics Chronic A. fib with history of sick sinus syndrome has a pacemaker in place -Pulse rate is controlled -Continue beta-mateus and Xarelto Hypertension -will continue metoprolol w/ hold parameters -held ARB SEGUNDO -Nocturnal CPAP Bipolar disorder/borderline personality disorder/PTSD -Continue venlafaxine GERD/esophageal stricture -Continue PPI Increased blood sugar levels -lispro as per sliding scale w/ FSBG ACHS Plan/VTE VTE Prophylaxis Ordered?: Yes VS, I&O, 24H, Fishbone Vital Signs/I&O Vital Signs Date Time Temp Pulse Resp B/P (MAP) Pulse Ox O2 Delivery O2 Flow Rate FiO2 10/02/21 08:00 96.8 61 24 138/69 (92) 96 NIPPV (BIPAP/CPAP) 10.0 10/01/21 20:00 70 I&O- Last 24 Hours up to 6 AM 10/02/21 06:00 Intake Total 840 ml Output Total 1285 ml Balance -445 ml Laboratory Data 24H LABS Laboratory Tests 2 10/01/21 11:48: Bedside Glucose (Misc Panel) 261H 10/01/21 17:13: Bedside Glucose (Misc Panel) 159H 10/01/21 21:51: Bedside Glucose (Misc Panel) 189H 10/02/21 04:15: Immature Granulocyte % (Auto) 1.2, Neutrophils (%) (Auto) 89.1H, Lymphocytes (%) (Auto) 6.0L, Monocytes (%) (Auto) 3.4, Eosinophils (%) (Auto) 0.2, Basophils (%) (Auto) 0.1, Neutrophils # (Auto) 10.0H, Lymphocytes # (Auto) 0.7L, Monocytes # (Auto) 0.4, Eosinophils # (Auto) 0.0, Basophils # (Auto) 0.0, Nucleated Red Blood Cells % (auto) 0.0, Anion Gap 5L, Glomerular Filtration Rate > 60.0, Calcium Level 8.6L, Magnesium Level 2.3 CBC/BMP Laboratory Tests 10/02/21 04:15 Microbiology Microbiology 09/25/21 Blood Culture - Final, Complete NO GROWTH AFTER 5 DAYS Ruthie Lynne MD Oct 02, 2021 10:03
[2021-10-02] MEDS: METOPROLOL SUCC *XL* 25MG TAB (TopROL *XL*) PO SCH (17:14)
[2021-10-02] MEDS: RIVAROXABAN 20 MG TAB (XARELTO) PO SCH (17:14)
[2021-10-02] MEDS: VENLAFAXINE **XR** 75MG CAPSULE PO SCH (17:15)
[2021-10-03] VITALS (10 sets, daily range): BP systolic 96–145; BP diastolic 55–92; O2SAT 84–95
[2021-10-03 07:15] LABS: HEMATOCRIT 42.5 % (36.0-47.0); HEMOGLOBIN 14.2 g/dl (12.0-15.5); MEAN CORPUSCULAR HEMOGLOBIN 30.1 pg (27.0-33.0); MEAN CORPUSCULAR HGB CONC 33.4 g/dl (32.0-36.5); MEAN CORPUSCULAR VOLUME 90.2 fl (80.0-96.0); PLATELET COUNT, AUTOMATED 291 10^3/uL (150-450); RED BLOOD COUNT 4.71 10^6/uL (4.00-5.40); WHITE BLOOD COUNT 12.5 10^3/uL (4.0-10.0)
--- NOTE | 2021-10-03 07:32 | IPNPDOC ---
Subjective Date Seen The patient was seen on 10/03/21. Subjective Chief Complaint/HPI Continues to have high oxygen requirements currently at 30 L / 90%. No acute events overnight. Patient reports that she is feeling better. Reports that her appetite is better. Objective Physical Examination General Exam: Positive: Alert, Cooperative, No Acute Distress Eye Exam: Positive: PERRLA, Conjunctiva & lids normal, EOMI; Negative: Sclera icteric ENT Exam: Positive: Atraumatic, Mucous membr. moist/pink, Pharynx Normal Neck Exam: Positive: Supple; Negative: JVD, thyromegaly Chest Exam: Positive: Normal air movement, Diminished Heart Exam: Positive: Rate Normal, Regular Rhythm, Normal S1, Normal S2; Negative: Murmurs, Rubs Abdomen Exam: Positive: Normal bowel sounds, Soft; Negative: Tenderness Extremity Exam: Negative: Clubbing, Cyanosis, Edema Skin Exam: Positive: Nl turgor and temperature; Negative: Breakdown, Lesion Psych Exam: Positive: Memory Intact, Oriented x 3 Assessment /Plan Assessment 71-year-old W with past medical history of morbid obesity/SEGUNDO on CPAP, A. fib on Xarelto, sick sinus syndrome status post pacemaker, hypertension, bipolar disorder, PTSD, borderline personality disorder who was admitted for covid-19 PNA went into ARDS. Now improving oxygenation. Covid 19 pneumonia with ARDS Dexamethasone,remdesevir, olumiant. incentive spirometry and awake pronation procalcitonin not elevated. No antibiotics Chronic A. fib with history of sick sinus syndrome has a pacemaker in place Pulse rate is controlled, she was all placed in telemetry Continue beta-mateus and Xarelto Hypertension will continue metoprolol w/ hold parameters. Will restart ARB at lower dose SEGUNDO Nocturnal CPAP Bipolar disorder/borderline personality disorder/PTSD Continue venlafaxine GERD/esophageal stricture Continue PPI Increased blood sugar levels -lispro as per sliding scale w/ FSBG ACHS Plan/VTE VTE Prophylaxis Ordered?: Yes VS, I&O, 24H, Fishbone Vital Signs/I&O Vital Signs Date Time Temp Pulse Resp B/P (MAP) Pulse Ox O2 Delivery O2 Flow Rate FiO2 10/03/21 07:22 97.8 70 18 145/92 (109) 91 HVNI-Vapotherm 30.0 10/03/21 07:00 90 I&O- Last 24 Hours up to 6 AM 10/03/21 06:00 Intake Total 1080 ml Output Total 1325 ml Balance -245 ml Laboratory Data 24H LABS Laboratory Tests 2 10/02/21 11:57: Bedside Glucose (Misc Panel) 210H 10/02/21 16:44: Bedside Glucose (Misc Panel) 184H 10/02/21 20:06: Bedside Glucose (Misc Panel) 172H 10/03/21 06:47: Nucleated Red Blood Cells % (auto) 0.0 CBC/BMP Laboratory Tests 10/03/21 06:47 Microbiology Microbiology 09/25/21 Blood Culture - Final, Complete NO GROWTH AFTER 5 DAYS Ruthie Lynne MD Oct 03, 2021 07:32
[2021-10-03 07:35] LABS: BLOOD UREA NITROGEN 22 MG/DL (7-18); CARBON DIOXIDE LEVEL 26 MEQ/L (21-32); CHLORIDE LEVEL 105 MEQ/L (98-107); GLOMERULAR FILTRATION RATE > 60.0 (>39); GLUCOSE, FASTING 166 MG/DL (70-100); MAGNESIUM LEVEL 2.5 MG/DL (1.8-2.4); POTASSIUM SERUM 4.8 MEQ/L (3.5-5.1); SODIUM LEVEL 135 MEQ/L (136-145)
[2021-10-03] MEDS: ALBUTEROL 90 MCG/ACT 8GM HFA INHALER INH SCH ×4 (07:52→19:47)
[2021-10-03] MEDS: BARICITINIB 2MG TABLET (OLUMIANT) FOR EUA PO SCH (08:40)
[2021-10-03] MEDS: dexameTHASONE 4 MG/ML 1ML VIAL (J1100 PER 1MG) IV SCH ×2 (08:40→20:54)
[2021-10-03] MEDS: PANTOPRAZOLE 40MG TAB (PROTONIX) PO SCH ×2 (08:40→20:54)
[2021-10-03] MEDS: HumaLOG INSULIN (NovoLOG) PER UNIT SC SCH ×4 (08:40→20:56)
[2021-10-03] MEDS ORDERED: LOSARTAN 50MG TABLET PO SCH (09:00)
[2021-10-03] MEDS: SODIUM CHLORIDE 0.9% NASAL GEL 15GM (AYR) SCH ×4 (10:15→20:57)
[2021-10-03] MEDS ORDERED: FUROSEMIDE 100MG/10ML VIAL (J1940) IV ONE (11:50)
[2021-10-03] MEDS ORDERED: FUROSEMIDE 40MG/4ML VIAL (J1940) IV ONE (12:30)
[2021-10-03] MEDS: VENLAFAXINE **XR** 75MG CAPSULE PO SCH (15:47)
[2021-10-03] MEDS: RIVAROXABAN 20 MG TAB (XARELTO) PO SCH (15:47)
[2021-10-03] MEDS: METOPROLOL SUCC *XL* 25MG TAB (TopROL *XL*) PO SCH (16:00)
[2021-10-03] MEDS ORDERED: BISACODYL 10 MG SUPP PR ONE (16:30)
[2021-10-03] MEDS: SUCRALFATE SUSP 1GM/10ML UD PO SCH ×2 (17:41→20:54)
[2021-10-03] MEDS: DOCUSATE SODIUM 100MG CAPSULE PO SCH (20:56)
[2021-10-04] VITALS (9 sets, daily range): BP systolic 119–154; BP diastolic 60–76; O2SAT 92–97
[2021-10-04 07:26] LABS: HEMATOCRIT 42.1 % (36.0-47.0); HEMOGLOBIN 14.3 g/dl (12.0-15.5); MEAN CORPUSCULAR HEMOGLOBIN 30.6 pg (27.0-33.0); PLATELET COUNT, AUTOMATED 281 10^3/uL (150-450); RED BLOOD COUNT 4.68 10^6/uL (4.00-5.40); WHITE BLOOD COUNT 14.9 10^3/uL (4.0-10.0)
[2021-10-04 07:45] LABS: BLOOD UREA NITROGEN 25 MG/DL (7-18); CALCIUM LEVEL 8.6 MG/DL (8.8-10.2); CARBON DIOXIDE LEVEL 25 MEQ/L (21-32); CHLORIDE LEVEL 105 MEQ/L (98-107); CREATININE FOR GFR 0.83 MG/DL (0.55-1.30); GLOMERULAR FILTRATION RATE > 60.0 (>39); GLUCOSE, FASTING 154 MG/DL (70-100); MAGNESIUM LEVEL 2.4 MG/DL (1.8-2.4); POTASSIUM SERUM 4.6 MEQ/L (3.5-5.1); SODIUM LEVEL 138 MEQ/L (136-145)
--- NOTE | 2021-10-04 07:59 | IPNPDOC ---
Subjective Date Seen The patient was seen on 10/04/21. Subjective Chief Complaint/HPI No acute events overnight. Remains on maximum Vapotherm support at 40 L / 100%. Received 1 dose of Lasix with very good negative balance yesterday. Objective Physical Examination General Exam: Positive: Alert, Cooperative, No Acute Distress Eye Exam: Positive: PERRLA, Conjunctiva & lids normal, EOMI; Negative: Sclera icteric ENT Exam: Positive: Atraumatic, Mucous membr. moist/pink, Pharynx Normal Neck Exam: Positive: Supple; Negative: JVD, thyromegaly Chest Exam: Positive: Normal air movement, Diminished Heart Exam: Positive: Rate Normal, Regular Rhythm, Normal S1, Normal S2; Negative: Murmurs, Rubs Abdomen Exam: Positive: Normal bowel sounds, Soft; Negative: Tenderness Extremity Exam: Negative: Clubbing, Cyanosis, Edema Skin Exam: Positive: Nl turgor and temperature; Negative: Breakdown, Lesion Psych Exam: Positive: Memory Intact, Oriented x 3 Assessment /Plan Assessment 71-year-old W with past medical history of morbid obesity/SEGUNDO on CPAP, A. fib on Xarelto, sick sinus syndrome status post pacemaker, hypertension, bipolar disorder, PTSD, borderline personality disorder who was admitted for covid-19 PNA went into ARDS. Now improving oxygenation. Covid 19 pneumonia with ARDS Dexamethasone,olumiant. Completed remdesivir incentive spirometry and awake pronation procalcitonin not elevated. No antibiotics Chronic A. fib with history of sick sinus syndrome has a pacemaker in place Pulse rate is controlled, she was all placed in telemetry Continue beta-mateus and Xarelto Hypertension will continue metoprolol w/ hold parameters. Will not give ARB at present SEGUNDO Nocturnal CPAP Bipolar disorder/borderline personality disorder/PTSD Continue venlafaxine GERD/esophageal stricture Continue PPI Increased blood sugar levels -lispro as per sliding scale w/ [facility]SBG ACHS Plan/VTE VTE Prophylaxis Ordered?: Yes VS, I&O, 24H, Fishbone Vital Signs/I&O Vital Signs Date Time Temp Pulse Resp B/P (MAP) Pulse Ox O2 Delivery O2 Flow Rate FiO2 10/04/21 07:27 96.7 61 18 154/72 (99) 97 HVNI-Vapotherm 40.0 10/04/21 05:00 100 I&O- Last 24 Hours up to 6 AM 10/04/21 06:00 Intake Total 1040 ml Output Total 2325 ml Balance -1285 ml Laboratory Data 24H LABS Laboratory Tests 2 10/03/21 11:40: Bedside Glucose (Misc Panel) 212H 10/03/21 16:52: Bedside Glucose (Misc Panel) 212H 10/03/21 20:35: Bedside Glucose (Misc Panel) 159H 10/04/21 07:03: Nucleated Red Blood Cells % (auto) 0.0, Anion Gap 8, Glomerular Filtration Rate > 60.0, Calcium Level 8.6L, Magnesium Level 2.4 CBC/BMP Laboratory Tests 10/04/21 07:03 Microbiology Microbiology 09/25/21 Blood Culture - Final, Complete NO GROWTH AFTER 5 DAYS Ruthie Lynne MD Oct 04, 2021 07:59
[2021-10-04] MEDS: ALBUTEROL 90 MCG/ACT 8GM HFA INHALER INH SCH ×4 (08:16→19:23)
[2021-10-04] MEDS: SODIUM CHLORIDE 0.9% NASAL GEL 15GM (AYR) SCH ×4 (08:49→21:36)
[2021-10-04] MEDS: SUCRALFATE SUSP 1GM/10ML UD PO SCH ×4 (08:49→21:33)
[2021-10-04] MEDS: HumaLOG INSULIN (NovoLOG) PER UNIT SC SCH ×4 (08:49→21:00)
[2021-10-04] MEDS: PANTOPRAZOLE 40MG TAB (PROTONIX) PO SCH ×2 (08:50→21:33)
[2021-10-04] MEDS: BARICITINIB 2MG TABLET (OLUMIANT) FOR EUA PO SCH (08:50)
[2021-10-04] MEDS: DOCUSATE SODIUM 100MG CAPSULE PO SCH ×2 (08:50→21:33)
[2021-10-04] MEDS: BISACODYL 10 MG SUPP PR SCH (08:50)
[2021-10-04] MEDS: dexameTHASONE 4 MG/ML 1ML VIAL (J1100 PER 1MG) IV SCH (08:50)
[2021-10-04] MEDS: VENLAFAXINE **XR** 75MG CAPSULE PO SCH (16:34)
[2021-10-04] MEDS: RIVAROXABAN 20 MG TAB (XARELTO) PO SCH (16:34)
[2021-10-04] MEDS: METOPROLOL SUCC *XL* 25MG TAB (TopROL *XL*) PO SCH (16:34)
[2021-10-05] VITALS (9 sets, daily range): BP systolic 92–185; BP diastolic 49–84; O2SAT 92–97
[2021-10-05 07:07] LABS: HEMATOCRIT 43.8 % (36.0-47.0); HEMOGLOBIN 14.3 g/dl (12.0-15.5); MEAN CORPUSCULAR HEMOGLOBIN 30.4 pg (27.0-33.0); MEAN CORPUSCULAR HGB CONC 32.6 g/dl (32.0-36.5); MEAN CORPUSCULAR VOLUME 93.2 fl (80.0-96.0); PLATELET COUNT, AUTOMATED 293 10^3/uL (150-450); WHITE BLOOD COUNT 16.9 10^3/uL (4.0-10.0)
[2021-10-05] MEDS: HumaLOG INSULIN (NovoLOG) PER UNIT SC SCH ×4 (07:30→21:00)
[2021-10-05 07:31] LABS: CALCIUM LEVEL 8.8 MG/DL (8.8-10.2); CREATININE FOR GFR 1.01 MG/DL (0.55-1.30); GLOMERULAR FILTRATION RATE 57.4 (>39); MAGNESIUM LEVEL 2.4 MG/DL (1.8-2.4); POTASSIUM SERUM 4.5 MEQ/L (3.5-5.1)
[2021-10-05] MEDS: ALBUTEROL 90 MCG/ACT 8GM HFA INHALER INH SCH ×4 (07:38→19:25)
[2021-10-05] MEDS: PANTOPRAZOLE 40MG TAB (PROTONIX) PO SCH ×2 (08:36→21:06)
[2021-10-05] MEDS: SODIUM CHLORIDE 0.9% NASAL GEL 15GM (AYR) SCH ×4 (08:36→21:16)
[2021-10-05] MEDS: DOCUSATE SODIUM 100MG CAPSULE PO SCH ×2 (08:36→21:06)
[2021-10-05] MEDS: BARICITINIB 2MG TABLET (OLUMIANT) FOR EUA PO SCH (08:36)
[2021-10-05] MEDS: BISACODYL 10 MG SUPP PR SCH (08:37)
[2021-10-05] MEDS: SUCRALFATE SUSP 1GM/10ML UD PO SCH ×4 (08:37→21:06)
--- NOTE | 2021-10-05 09:53 | IPNPDOC ---
Subjective Date Seen The patient was seen on 10/05/21. Subjective Chief Complaint/HPI No acute events overnight. Continues to have high oxygen requirements. Remains on Vapotherm 40 L / 100% Objective Physical Examination General Exam: Positive: Alert, Cooperative, No Acute Distress Eye Exam: Positive: PERRLA, Conjunctiva & lids normal, EOMI; Negative: Sclera icteric ENT Exam: Positive: Atraumatic, Mucous membr. moist/pink, Pharynx Normal Neck Exam: Positive: Supple; Negative: JVD, thyromegaly Chest Exam: Positive: Normal air movement, Diminished Heart Exam: Positive: Rate Normal, Regular Rhythm, Normal S1, Normal S2; Negative: Murmurs, Rubs Abdomen Exam: Positive: Normal bowel sounds, Soft; Negative: Tenderness Extremity Exam: Negative: Clubbing, Cyanosis, Edema Skin Exam: Positive: Nl turgor and temperature; Negative: Breakdown, Lesion Psych Exam: Positive: Memory Intact, Oriented x 3 Assessment /Plan Assessment 71-year-old W with past medical history of morbid obesity/SEGUNDO on CPAP, A. fib on Xarelto, sick sinus syndrome status post pacemaker, hypertension, bipolar disorder, PTSD, borderline personality disorder who was admitted for covid-19 PNA went into ARDS. Now improving oxygenation. Covid 19 pneumonia with ARDS Dexamethasone,olumiant. Completed remdesivir incentive spirometry and awake pronation procalcitonin not elevated. No antibiotics Started on dexamethasone tapering as has finished 10 days of 6 mg twice daily dosing. Chronic A. fib with history of sick sinus syndrome has a pacemaker in place Pulse rate is controlled, she was all placed in telemetry Continue beta-mateus and Xarelto Hypertension will continue metoprolol w/ hold parameters. Will not give ARB at present SEGUNDO Nocturnal CPAP Bipolar disorder/borderline personality disorder/PTSD Continue venlafaxine GERD/esophageal stricture Continue PPI Increased blood sugar levels -lispro as per sliding scale w/ [facility]SB[facility] ACHS Plan/VTE VTE Prophylaxis Ordered?: Yes VS, I&O, 24H, Fishbone Vital Signs/I&O Vital Signs Date Time Temp Pulse Resp B/P (MAP) Pulse Ox O2 Delivery O2 Flow Rate FiO2 10/05/21 08:00 97.1 61 18 106/59 (75) 93 HVNI-Vapotherm 40.0 100 I&O- Last 24 Hours up to 6 AM 10/05/21 06:00 Intake Total 1020 ml Output Total 1210 ml Balance -190 ml Laboratory Data 24H LABS Laboratory Tests 2 10/04/21 11:57: Bedside Glucose (Misc Panel) 149H 10/04/21 16:33: Bedside Glucose (Misc Panel) 195H 10/04/21 21:35: Bedside Glucose (Misc Panel) 143H 10/05/21 06:31: Nucleated Red Blood Cells % (auto) 0.0, Anion Gap 2L, Glomerular Filtration Rate 57.4, Calcium Level 8.8, Magnesium Level 2.4 CBC/BMP Laboratory Tests 10/05/21 06:31 Microbiology Microbiology 09/25/21 Blood Culture - Final, Complete NO GROWTH AFTER 5 DAYS Ruthie Lynne MD Oct 05, 2021 09:53
[2021-10-05] MEDS: dexameTHASONE 20MG/5ML VIAL (J1100 PER 1MG) IV SCH (12:26)
[2021-10-05] MEDS: METOPROLOL SUCC *XL* 25MG TAB (TopROL *XL*) PO SCH (16:00)
[2021-10-05] MEDS: RIVAROXABAN 20 MG TAB (XARELTO) PO SCH (17:26)
[2021-10-05] MEDS: VENLAFAXINE **XR** 75MG CAPSULE PO SCH (17:27)
[2021-10-06] VITALS (7 sets, daily range): BP systolic 78–142; BP diastolic 46–69; O2SAT 92–98
[2021-10-06 07:17] LABS: HEMATOCRIT 41.6 % (36.0-47.0); HEMOGLOBIN 13.8 g/dl (12.0-15.5); MEAN CORPUSCULAR HEMOGLOBIN 30.9 pg (27.0-33.0); MEAN CORPUSCULAR HGB CONC 33.2 g/dl (32.0-36.5); MEAN CORPUSCULAR VOLUME 93.1 fl (80.0-96.0); PLATELET COUNT, AUTOMATED 266 10^3/uL (150-450); RED BLOOD COUNT 4.47 10^6/uL (4.00-5.40); WHITE BLOOD COUNT 16.4 10^3/uL (4.0-10.0)
[2021-10-06] MEDS: HumaLOG INSULIN (NovoLOG) PER UNIT SC SCH ×4 (07:30→21:00)
[2021-10-06 07:44] LABS: BLOOD UREA NITROGEN 23 MG/DL (7-18); CALCIUM LEVEL 8.8 MG/DL (8.8-10.2); CARBON DIOXIDE LEVEL 29 MEQ/L (21-32); CHLORIDE LEVEL 105 MEQ/L (98-107); CREATININE FOR GFR 0.79 MG/DL (0.55-1.30); GLOMERULAR FILTRATION RATE > 60.0 (>39); GLUCOSE, FASTING 90 MG/DL (70-100); MAGNESIUM LEVEL 2.5 MG/DL (1.8-2.4); POTASSIUM SERUM 4.4 MEQ/L (3.5-5.1); SODIUM LEVEL 140 MEQ/L (136-145)
[2021-10-06] MEDS: ALBUTEROL 90 MCG/ACT 8GM HFA INHALER INH SCH ×4 (08:00→20:54)
[2021-10-06] MEDS: dexameTHASONE 20MG/5ML VIAL (J1100 PER 1MG) IV SCH (08:35)
[2021-10-06] MEDS: SUCRALFATE SUSP 1GM/10ML UD PO SCH ×4 (08:36→20:48)
[2021-10-06] MEDS: DOCUSATE SODIUM 100MG CAPSULE PO SCH ×2 (08:38→20:48)
[2021-10-06] MEDS: SODIUM CHLORIDE 0.9% NASAL GEL 15GM (AYR) SCH ×4 (08:39→21:36)
[2021-10-06] MEDS: BARICITINIB 2MG TABLET (OLUMIANT) FOR EUA PO SCH (08:39)
[2021-10-06] MEDS: PANTOPRAZOLE 40MG TAB (PROTONIX) PO SCH ×2 (08:39→20:48)
[2021-10-06] MEDS: BISACODYL 10 MG SUPP PR SCH (08:49)
--- NOTE | 2021-10-06 09:18 | IPNPDOC ---
Subjective Date Seen The patient was seen on 10/06/21. Subjective Chief Complaint/HPI Patient reports that she is feeling little better. She was unable to use them CPAP machine as she said the mask was repeatedly coming off. Her oxygen requirement is a little improved today. We have been able to come down a little bit on the Vapotherm which is very encouraging. Objective Physical Examination General Exam: Positive: Alert, Cooperative, No Acute Distress Eye Exam: Positive: PERRLA, Conjunctiva & lids normal, EOMI; Negative: Sclera icteric ENT Exam: Positive: Atraumatic, Mucous membr. moist/pink, Pharynx Normal Neck Exam: Positive: Supple; Negative: JVD, thyromegaly Chest Exam: Positive: Normal air movement, Diminished Heart Exam: Positive: Rate Normal, Regular Rhythm, Normal S1, Normal S2; Negative: Murmurs, Rubs Abdomen Exam: Positive: Normal bowel sounds, Soft; Negative: Tenderness Extremity Exam: Negative: Clubbing, Cyanosis, Edema Skin Exam: Positive: Nl turgor and temperature; Negative: Breakdown, Lesion Psych Exam: Positive: Memory Intact, Oriented x 3 Assessment /Plan Assessment 71-year-old W with past medical history of morbid obesity/SEGUNDO on CPAP, A. fib on Xarelto, sick sinus syndrome status post pacemaker, hypertension, bipolar disorder, PTSD, borderline personality disorder who was admitted for covid-19 PNA went into ARDS. Now improving oxygenation. Covid 19 pneumonia with ARDS Dexamethasone,olumiant. Completed remdesivir incentive spirometry and awake pronation procalcitonin not elevated. No antibiotics Started on dexamethasone tapering as has finished 10 days of 6 mg twice daily dosing. Chronic A. fib with history of sick sinus syndrome has a pacemaker in place Pulse rate is controlled, she was all placed in telemetry Continue beta-mateus and Xarelto Hypertension will continue metoprolol w/ hold parameters. Will not give ARB at present SEGUNDO Nocturnal CPAP Bipolar disorder/borderline personality disorder/PTSD Continue venlafaxine GERD/esophageal stricture Continue PPI Increased blood sugar levels Due to steroids Now better as the steroid dose have been decreased lispro as per sliding scale w/ [facility]SBG ACHS Plan/VTE VTE Prophylaxis Ordered?: Yes VS, I&O, 24H, Fishbone Vital Signs/I&O Vital Signs Date Time Temp Pulse Resp B/P (MAP) Pulse Ox O2 Delivery O2 Flow Rate FiO2 10/06/21 08:31 97 HVNI-Vapotherm 35.0 80 10/06/21 08:00 97.3 61 18 110/57 (74) I&O- Last 24 Hours up to 6 AM 10/06/21 06:00 Intake Total 1820 ml Output Total 1375 ml Balance 445 ml Laboratory Data 24H LABS Laboratory Tests 2 10/05/21 12:23: Bedside Glucose (Misc Panel) 65L 10/05/21 17:18: Procalcitonin <0.05 10/05/21 17:23: Bedside Glucose (Misc Panel) 210H 10/05/21 19:39: Bedside Glucose (Misc Panel) 235H 10/06/21 06:09: Bedside Glucose (Misc Panel) 115H 10/06/21 06:53: Nucleated Red Blood Cells % (auto) 0.0, Anion Gap 6L, Glomerular Filtration Rate > 60.0, Calcium Level 8.8, Magnesium Level 2.5H CBC/BMP Laboratory Tests 10/06/21 06:53 Ruthie Lynne MD Oct 06, 2021 09:18
[2021-10-06] MEDS: RIVAROXABAN 20 MG TAB (XARELTO) PO SCH (16:40)
[2021-10-06] MEDS: VENLAFAXINE **XR** 75MG CAPSULE PO SCH (16:41)
[2021-10-06] MEDS: METOPROLOL SUCC *XL* 25MG TAB (TopROL *XL*) PO SCH (16:41)
[2021-10-07] VITALS (14 sets, daily range): BP systolic 102–152; BP diastolic 58–78; O2SAT 89–96
[2021-10-07 07:21] LABS: HEMATOCRIT 41.1 % (36.0-47.0); HEMOGLOBIN 13.4 g/dl (12.0-15.5); MEAN CORPUSCULAR HEMOGLOBIN 30.7 pg (27.0-33.0); MEAN CORPUSCULAR HGB CONC 32.6 g/dl (32.0-36.5); MEAN CORPUSCULAR VOLUME 94.1 fl (80.0-96.0); PLATELET COUNT, AUTOMATED 240 10^3/uL (150-450); RED BLOOD COUNT 4.37 10^6/uL (4.00-5.40); WHITE BLOOD COUNT 15.4 10^3/uL (4.0-10.0)
--- NOTE | 2021-10-07 07:24 | IPNPDOC ---
Subjective Date Seen The patient was seen on 10/07/21. Subjective Chief Complaint/HPI There has been significant improvement in her oxygenation in the last 24 hours. She has been on 12 L high flow oxygen by nasal cannula overnight. Patient reports that she continues to feel better every day. Objective Physical Examination General Exam: Positive: Alert, Cooperative, No Acute Distress Eye Exam: Positive: PERRLA, Conjunctiva & lids normal, EOMI; Negative: Sclera icteric ENT Exam: Positive: Atraumatic, Mucous membr. moist/pink, Pharynx Normal Neck Exam: Positive: Supple; Negative: JVD, thyromegaly Chest Exam: Positive: Normal air movement, Diminished Heart Exam: Positive: Rate Normal, Regular Rhythm, Normal S1, Normal S2; Negative: Murmurs, Rubs Abdomen Exam: Positive: Normal bowel sounds, Soft; Negative: Tenderness Extremity Exam: Negative: Clubbing, Cyanosis, Edema Skin Exam: Positive: Nl turgor and temperature; Negative: Breakdown, Lesion Psych Exam: Positive: Memory Intact, Oriented x 3 Assessment /Plan Assessment 71-year-old W with past medical history of morbid obesity/SEGUNDO on CPAP, A. fib on Xarelto, sick sinus syndrome status post pacemaker, hypertension, bipolar disorder, PTSD, borderline personality disorder who was admitted for covid-19 PNA went into ARDS. Now improving oxygenation. Covid 19 pneumonia with ARDS Dexamethasone, olumiant. Completed remdesivir incentive spirometry and awake pronation procalcitonin not elevated. No antibiotics Started on dexamethasone tapering as has finished 10 days of 6 mg twice daily dosing. Chronic A. fib with history of sick sinus syndrome has a pacemaker in place Pulse rate is controlled, she was all placed in telemetry Continue beta-mateus and Xarelto Hypertension will continue metoprolol w/ hold parameters. Will not give ARB at present SEGUNDO Nocturnal CPAP Bipolar disorder/borderline personality disorder/PTSD Continue venlafaxine GERD/esophageal stricture Continue PPI Increased blood sugar levels Due to steroids Now better as the steroid dose have been decreased lispro as per sliding scale w/ FSBG ACHS Plan/VTE VTE Prophylaxis Ordered?: Yes VS, I&O, 24H, Fishbone Vital Signs/I&O Vital Signs Date Time Temp Pulse Resp B/P (MAP) Pulse Ox O2 Delivery O2 Flow Rate FiO2 10/07/21 04:00 12.0 10/07/21 04:00 96 Nasal Cannula 10/07/21 04:00 97.7 63 18 152/78 (102) 10/06/21 16:00 80 I&O- Last 24 Hours up to 6 AM 10/07/21 06:00 Intake Total 1310 ml Output Total 1500 ml Balance -190 ml Laboratory Data 24H LABS Laboratory Tests 2 10/06/21 11:37: Bedside Glucose (Misc Panel) 213H 10/06/21 16:38: Bedside Glucose (Misc Panel) 207H 10/06/21 19:19: Bedside Glucose (Misc Panel) 200H 10/07/21 06:59: Nucleated Red Blood Cells % (auto) 0.0 CBC/BMP Laboratory Tests 10/07/21 06:59 Ruthie Lynne MD Oct 07, 2021 07:24
[2021-10-07] MEDS: HumaLOG INSULIN (NovoLOG) PER UNIT SC SCH ×4 (07:30→20:24)
[2021-10-07 07:37] LABS: BLOOD UREA NITROGEN 15 MG/DL (7-18); CALCIUM LEVEL 8.6 MG/DL (8.8-10.2); CARBON DIOXIDE LEVEL 31 MEQ/L (21-32); CHLORIDE LEVEL 107 MEQ/L (98-107); CREATININE FOR GFR 0.77 MG/DL (0.55-1.30); GLOMERULAR FILTRATION RATE > 60.0 (>39); GLUCOSE, FASTING 73 MG/DL (70-100); MAGNESIUM LEVEL 2.3 MG/DL (1.8-2.4); POTASSIUM SERUM 4.1 MEQ/L (3.5-5.1); SODIUM LEVEL 141 MEQ/L (136-145)
[2021-10-07] MEDS: ALBUTEROL 90 MCG/ACT 8GM HFA INHALER INH SCH ×4 (07:50→17:56)
[2021-10-07] MEDS: SUCRALFATE SUSP 1GM/10ML UD PO SCH ×4 (08:16→20:24)
[2021-10-07] MEDS: DOCUSATE SODIUM 100MG CAPSULE PO SCH ×2 (08:17→20:24)
[2021-10-07] MEDS: PANTOPRAZOLE 40MG TAB (PROTONIX) PO SCH ×2 (08:17→20:24)
[2021-10-07] MEDS: BARICITINIB 2MG TABLET (OLUMIANT) FOR EUA PO SCH (08:17)
[2021-10-07] MEDS: dexameTHASONE 20MG/5ML VIAL (J1100 PER 1MG) IV SCH (08:18)
[2021-10-07] MEDS: SODIUM CHLORIDE 0.9% NASAL GEL 15GM (AYR) SCH ×4 (08:31→20:25)
[2021-10-07] MEDS: BISACODYL 10 MG SUPP PR SCH (08:32)
[2021-10-07] MEDS: VENLAFAXINE **XR** 75MG CAPSULE PO SCH (16:38)
[2021-10-07] MEDS: RIVAROXABAN 20 MG TAB (XARELTO) PO SCH (16:38)
[2021-10-07] MEDS: METOPROLOL SUCC *XL* 25MG TAB (TopROL *XL*) PO SCH (16:39)
[2021-10-08] VITALS (17 sets, daily range): BP systolic 107–134; BP diastolic 53–72; O2SAT 89–97
[2021-10-08] MEDS: ALBUTEROL 90 MCG/ACT 8GM HFA INHALER INH SCH ×4 (07:15→20:31)
[2021-10-08 07:24] LABS: HEMATOCRIT 40.1 % (36.0-47.0); MEAN CORPUSCULAR HEMOGLOBIN 30.7 pg (27.0-33.0); MEAN CORPUSCULAR HGB CONC 32.4 g/dl (32.0-36.5); MEAN CORPUSCULAR VOLUME 94.8 fl (80.0-96.0); PLATELET COUNT, AUTOMATED 214 10^3/uL (150-450); RED BLOOD COUNT 4.23 10^6/uL (4.00-5.40); WHITE BLOOD COUNT 14.2 10^3/uL (4.0-10.0)
[2021-10-08] MEDS: HumaLOG INSULIN (NovoLOG) PER UNIT SC SCH ×4 (07:30→21:00)
[2021-10-08 07:42] LABS: BLOOD UREA NITROGEN 18 MG/DL (7-18); CALCIUM LEVEL 8.7 MG/DL (8.8-10.2); CARBON DIOXIDE LEVEL 31 MEQ/L (21-32); CHLORIDE LEVEL 107 MEQ/L (98-107); CREATININE FOR GFR 0.77 MG/DL (0.55-1.30); GLOMERULAR FILTRATION RATE > 60.0 (>39); GLUCOSE, FASTING 89 MG/DL (70-100); MAGNESIUM LEVEL 2.2 MG/DL (1.8-2.4); POTASSIUM SERUM 4.1 MEQ/L (3.5-5.1); SODIUM LEVEL 142 MEQ/L (136-145)
[2021-10-08] MEDS: dexameTHASONE 20MG/5ML VIAL (J1100 PER 1MG) IV SCH (08:33)
[2021-10-08] MEDS: BARICITINIB 2MG TABLET (OLUMIANT) FOR EUA PO SCH (08:33)
[2021-10-08] MEDS: SUCRALFATE SUSP 1GM/10ML UD PO SCH ×4 (08:33→21:21)
[2021-10-08] MEDS: PANTOPRAZOLE 40MG TAB (PROTONIX) PO SCH ×2 (08:33→21:21)
[2021-10-08] MEDS: DOCUSATE SODIUM 100MG CAPSULE PO SCH ×2 (08:33→21:21)
[2021-10-08] MEDS: SODIUM CHLORIDE 0.9% NASAL GEL 15GM (AYR) SCH ×4 (08:34→21:21)
[2021-10-08] MEDS: BISACODYL 10 MG SUPP PR SCH (08:34)
--- NOTE | 2021-10-08 12:56 | IPNPDOC ---
Subjective Date Seen The patient was seen on 10/08/21. Subjective Chief Complaint/HPI Patient has made significant improvement in oxygenation in the last 2 days. She is now down to 4 L of oxygen. She has been out of bed and using the bathroom. She also reports that her appetite is better and she is able to eat better. I am very hopeful him she will be able to go home with in the next 24 hours full Objective Physical Examination General Exam: Positive: Alert, Cooperative, No Acute Distress Eye Exam: Positive: PERRLA, Conjunctiva & lids normal, EOMI; Negative: Sclera icteric ENT Exam: Positive: Atraumatic, Mucous membr. moist/pink, Pharynx Normal Neck Exam: Positive: Supple; Negative: JVD, thyromegaly Chest Exam: Positive: Normal air movement, Diminished Heart Exam: Positive: Rate Normal, Regular Rhythm, Normal S1, Normal S2; Negative: Murmurs, Rubs Abdomen Exam: Positive: Normal bowel sounds, Soft; Negative: Tenderness Extremity Exam: Negative: Clubbing, Cyanosis, Edema Skin Exam: Positive: Nl turgor and temperature; Negative: Breakdown, Lesion Psych Exam: Positive: Memory Intact, Oriented x 3 Assessment /Plan Assessment 71-year-old W with past medical history of morbid obesity/SEGUNDO on CPAP, A. fib on Xarelto, sick sinus syndrome status post pacemaker, hypertension, bipolar disorder, PTSD, borderline personality disorder who was admitted for covid-19 PNA went into ARDS. Now improving oxygenation. Covid 19 pneumonia with ARDS Dexamethasone, olumiant. Completed remdesivir incentive spirometry and awake pronation procalcitonin not elevated. No antibiotics Started on dexamethasone tapering as has finished 10 days of 6 mg twice daily dosing. Chronic A. fib with history of sick sinus syndrome has a pacemaker in place Pulse rate is controlled, she was all placed in telemetry Continue beta-mateus and Xarelto Hypertension will continue metoprolol w/ hold parameters. Will not give ARB at present SEGUNDO Nocturnal CPAP Bipolar disorder/borderline personality disorder/PTSD Continue venlafaxine GERD/esophageal stricture Continue PPI Increased blood sugar levels Due to steroids Now better as the steroid dose have been decreased lispro as per sliding scale w/ FSBG ACHS Dispo: Anticipate home with services in the next 24 hours. Plan/VTE VTE Prophylaxis Ordered?: Yes VS, I&O, 24H, Fishbone Vital Signs/I&O Vital Signs Date Time Temp Pulse Resp B/P (MAP) Pulse Ox O2 Delivery O2 Flow Rate FiO2 10/08/21 12:32 98.6 60 18 121/65 (83) 92 10/08/21 08:00 Nasal Cannula 4.0 10/06/21 16:00 80 I&O- Last 24 Hours up to 6 AM 10/08/21 06:00 Intake Total 1510 ml Output Total 1275 ml Balance 235 ml Laboratory Data 24H LABS Laboratory Tests 2 10/07/21 16:37: Bedside Glucose (Misc Panel) 219H 10/07/21 20:23: Bedside Glucose (Misc Panel) 171H 10/08/21 07:02: Nucleated Red Blood Cells % (auto) 0.0, Anion Gap 4L, Glomerular Filtration Rate > 60.0, Calcium Level 8.7L, Magnesium Level 2.2 10/08/21 12:24: Bedside Glucose (Misc Panel) 150H CBC/BMP Laboratory Tests 10/08/21 07:02 Ruthie Lynne MD Oct 08, 2021 12:55
[2021-10-08] MEDS: RIVAROXABAN 20 MG TAB (XARELTO) PO SCH (17:44)
[2021-10-08] MEDS: METOPROLOL SUCC *XL* 25MG TAB (TopROL *XL*) PO SCH (17:44)
[2021-10-08] MEDS: VENLAFAXINE **XR** 75MG CAPSULE PO SCH (17:45)
[2021-10-09] VITALS (7 sets, daily range): BP systolic 109–119; BP diastolic 62–74; O2SAT 93–98
[2021-10-09 06:58] LABS: HEMATOCRIT 40.3 % (36.0-47.0); HEMOGLOBIN 13.2 g/dl (12.0-15.5); MEAN CORPUSCULAR HEMOGLOBIN 31.1 pg (27.0-33.0); MEAN CORPUSCULAR HGB CONC 32.8 g/dl (32.0-36.5); MEAN CORPUSCULAR VOLUME 94.8 fl (80.0-96.0); PLATELET COUNT, AUTOMATED 226 10^3/uL (150-450); RED BLOOD COUNT 4.25 10^6/uL (4.00-5.40); WHITE BLOOD COUNT 13.3 10^3/uL (4.0-10.0)
[2021-10-09] MEDS: ALBUTEROL 90 MCG/ACT 8GM HFA INHALER INH SCH ×2 (07:17→12:00)
[2021-10-09 07:23] LABS: BLOOD UREA NITROGEN 16 MG/DL (7-18); CALCIUM LEVEL 8.8 MG/DL (8.8-10.2); CARBON DIOXIDE LEVEL 30 MEQ/L (21-32); CHLORIDE LEVEL 109 MEQ/L (98-107); CREATININE FOR GFR 0.76 MG/DL (0.55-1.30); GLOMERULAR FILTRATION RATE > 60.0 (>39); GLUCOSE, FASTING 77 MG/DL (70-100); MAGNESIUM LEVEL 2.2 MG/DL (1.8-2.4); POTASSIUM SERUM 4.6 MEQ/L (3.5-5.1); SODIUM LEVEL 143 MEQ/L (136-145)
[2021-10-09] MEDS: HumaLOG INSULIN (NovoLOG) PER UNIT SC SCH ×2 (07:30→12:22)
[2021-10-09] MEDS ORDERED: PANT40TA29 PO (08:18)
[2021-10-09] MEDS ORDERED: PRED10TA2 PO (08:18)
[2021-10-09] MEDS ORDERED: COLA100C5 PO (08:18)
[2021-10-09] MEDS ORDERED: SUCR1TA PO (08:18)
[2021-10-09] MEDS ORDERED: VENTAER INH (08:18)
[2021-10-09] MEDS: DOCUSATE SODIUM 100MG CAPSULE PO SCH (08:21)
[2021-10-09] MEDS: dexameTHASONE 20MG/5ML VIAL (J1100 PER 1MG) IV SCH (08:21)
[2021-10-09] MEDS: BARICITINIB 2MG TABLET (OLUMIANT) FOR EUA PO SCH (08:22)
[2021-10-09] MEDS: SUCRALFATE SUSP 1GM/10ML UD PO SCH ×2 (08:22→12:21)
[2021-10-09] MEDS: PANTOPRAZOLE 40MG TAB (PROTONIX) PO SCH (08:22)
[2021-10-09] MEDS: SODIUM CHLORIDE 0.9% NASAL GEL 15GM (AYR) SCH ×2 (08:23→12:02)
[2021-10-09] MEDS: BISACODYL 10 MG SUPP PR SCH (08:23)
--- NOTE | 2021-10-09 10:49 | DS.PDOC ---
Discharge Summary General Date of Admission Sep 25, 2021 at 09:41 Date of Discharge 10/09/2021 Attending Physician: RICHMOND GONZALEZ MD Discharge Summary PROCEDURES PERFORMED DURING STAY: None ADMITTING DIAGNOSES: Covid-19 PNA DISCHARGE DIAGNOSES: Covid-19 PNA ARDS Acute hypoxemic respiratory failure SEGUNDO on CPAP Chronic A. fib Sick sinus syndrome status post pacemaker Hypertension Hyperlipidemia GERD Morbid obesity Bipolar disorder. PTSD Borderline personality disorder COMPLICATIONS/CHIEF COMPLAINT: Hypoxia, Covid-19. HISTORY OF PRESENT ILLNESS: 71-year-old W with past medical history of morbid obesity/SEGUNDO on CPAP, A. fib on Xarelto, sick sinus syndrome status post pacemaker, hypertension, bipolar disorder, PTSD, borderline personality disorder who presented reporting that she had been sick for the past 9 days. She started with malaise body aches chills and coughing without phlegm production. She also had been nauseous with a poor appetite but no diarrhea. She was tested for Covid on 09/24/2021 and found to be positive so was sent for monoclonal antibody infusion by PMD to the infusion unit. On arrival to the infusion unit she was noted to be hypoxic at 87% in room air. Monoclonal antibody infusion was canceled and she was recommended for hospital admission. HOSPITAL COURSE: Her hospital course was c/b ARDS with worsening hypoxemic respiratory failure with increasing oxygen requirements such that she required a brief stay in the ICU on max vapotherm and 40L and 100% Fio2. Her oxygen requirements eventually improved with continued treatment and she is now on 4L NC. She is now being discharged home with supplemental O2 with portability that I expect she will use for the next few days to weeks with continued weaning, with a prednisone taper and close PCP follow up. I recommend continued self isolation until her symptoms have resolved. DISCHARGE MEDICATIONS: Please see below. ALLERGIES: Please see below. PHYSICAL EXAMINATION ON DISCHARGE: VITAL SIGNS: Please see below. General: Alert, Cooperative, No Acute Distress Eyes: PERRLA, Conjunctiva & lids normal, EOMI, anicteric ENT: Atraumatic, Mucous membr. moist/pink, Pharynx Normal Neck: Supple, no JVD, thyromegaly Chest: Fair air movement, however is diminished, no wheezing Heart: Rate Normal, Regular Rhythm, Normal S1, Normal S2, no noted m/r/g Abdomen: Normal bowel sounds, Soft, obese, NTND Extremities: WWP, no edema Skin: Nl turgor and temperature Psych: Aox3 LABORATORY DATA: Please see below. IMAGIN/17 CXR: Diffuse bilateral airspace disease consistent with COVID-19 pulmonary disease. No effusion. No pneumothorax. Mediastinum and cardiac silhouette are stable. No pneumothorax. Skeletal structures intact. IMPRESSION: Diffuse bilateral opacities consistent with COVID-19 pulmonary disease. 09/29 CXR: Diffuse bilateral infiltrates consistent with the given history of COVID-19 pulmonary disease. Mediastinum and cardiac silhouette are stable and within normal limits. IMPRESSION: Bilateral infiltrates consistent with the given history of COVID-19 pulmonary disease. PROGNOSIS: Good ACTIVITY: As tolerated DIET: 2g sodium DISCHARGE PLAN: Home with supplemental O2, prednisone taper, and close PCP follow up within 7d DISPOSITION: Home DISCHARGE INSTRUCTIONS: Home with supplemental O2, prednisone taper, and close PCP follow up within 7d ITEMS TO FOLLOWUP ON ON OUTPATIENT: Resolution of covid-19 PNA and acute hypoxemic respiratory failure DISCHARGE CONDITION: Stable TIME SPENT ON DISCHARGE: 34 minutes. Vital Signs/I&Os Vital Signs Date Time Temp Pulse Resp B/P (MAP) Pulse Ox O2 Delivery O2 Flow Rate FiO2 10/09/21 04:00 97.9 64 19 119/74 (89) 93 High Flow Cannula 4.0 10/06/21 16:00 80 I&O- Last 24 Hours up to 6 AM 10/09/21 05:59 Intake Total 1720 ml Output Total 925 ml Balance 795 ml Laboratory Data Labs 24H Laboratory Tests 2 10/08/21 12:24: Bedside Glucose (Misc Panel) 150H 10/08/21 17:32: Bedside Glucose (Misc Panel) 223H 10/08/21 21:20: Bedside Glucose (Misc Panel) 135H 10/09/21 06:31: Nucleated Red Blood Cells % (auto) 0.0, Anion Gap 4L, Glomerular Filtration Rate > 60.0, Calcium Level 8.8, Magnesium Level 2.2 CBC/BMP Laboratory Tests 10/09/21 06:31 FSBS Laboratory Tests Test 10/08/21 12:24 10/08/21 17:32 10/08/21 21:20 Range/Units Bedside Glucose (Misc Panel) 150 223 135 83-110 MG/DL Discharge Medications Scheduled Albuterol Sulfate (Ventolin Hfa) 18 Gm Hfa.aer.ad, 2 PUFF INH RQID Atorvastatin Calcium (Atorvastatin Calcium) 10 Mg Tab, 10 MG PO DAILY, (Reported) @ 1600 Docusate Sodium (Colace) 100 Mg Capsule, 100 MG PO BID Losartan Potassium (Losartan Potassium) 100 Mg Tab, 100 MG PO DAILY, (Reported) @ 1600 Metoprolol Succinate (Metoprolol Succinate) 25 Mg Tab, 25 MG PO DAILY, (R eported) @ 1600 Pantoprazole Sodium (Pantoprazole Sodium) 40 Mg Tablet.dr, 40 MG PO BID Prednisone (Prednisone) 10 Mg Tablet, 1 TAB PO ASDIRECTED 4 tabs daily for 2d, then 3tabs daily for 3d, then 2tabs daily for 3d, then 1tab daily for 3d. Rivaroxaban (Xarelto) 20 Mg Tablet, 20 MG PO DAILY, (Reported) @ 1600 Sucralfate (Sucralfate) 1 Gm Tablet, 1 TAB PO QID Venlafaxine HCl (Venlafaxine HCl ER) 75 Mg Cap.er.24h, 75 MG PO DAILY, (Reported) @ 1600. TAKE WITH 150MG CAP. TOTAL OF 225MG Venlafaxine HCl (Venlafaxine HCl ER) 150 Mg Cap.er.24h, 150 MG PO DAILY, (Reported) @ 1600. TAKE WITH 75MG CAP. TOTAL OF 225MG Allergies Coded Allergies: codeine (Verified Allergy, Severe, throat swelling, 01/19/19) Penicillins (Verified Allergy, Intermediate, rash increased BP, 01/19/19) transparent dressing (Verified Allergy, Intermediate, blisters, 01/19/19) RICHMOND GONZALEZ MD Oct 09, 2021 08:12
== END 2021-10-09 14:00 | disposition home health service (06) | DRG 177 ==
LOC: M 4MAIN 09:41 → M ICU 09-29 10:00 → M 4MAIN 10-02 22:28
PROVIDERS: ADMIT Internal Medicine Nephrology; ATTEND Internal Medicine
PROC: XW033E5 Introduction of Remdesivir Anti-infective into Peripheral Vein, Percutaneous Approach, New Technology Group 5 (ICD-10-PCS; principal; 2021-09-25)
PROC: 3E0333Z Introduction of Anti-inflammatory into Peripheral Vein, Percutaneous Approach (ICD-10-PCS; 2021-09-25)
DX: U07.1 COVID-19 (principal); J96.01 Acute respiratory failure with hypoxia; I48.20 Chronic atrial fibrillation, unspecified; E66.01 Morbid (severe) obesity due to excess calories; G47.33 Obstructive sleep apnea (adult) (pediatric); I49.5 Sick sinus syndrome; I10 Essential (primary) hypertension; F31.9 Bipolar disorder, unspecified; F43.10 Post-traumatic stress disorder, unspecified; F60.3 Borderline personality disorder; Z79.01 Long term (current) use of anticoagulants; Z79.899 Other long term (current) drug therapy; Z88.0 Allergy status to penicillin; Z88.5 Allergy status to narcotic agent; Z91.048 Other nonmedicinal substance allergy status; Z95.0 Presence of cardiac pacemaker; E78.5 Hyperlipidemia, unspecified; K21.9 Gastro-esophageal reflux disease without esophagitis; K64.8 Other hemorrhoids; K57.30 Diverticulosis of large intestine without perforation or abscess without bleeding; Z86.010 Personal history of colon polyps; Z96.652 Presence of left artificial knee joint; Z90.49 Acquired absence of other specified parts of digestive tract; Z68.37 Body mass index [BMI] 37.0-37.9, adult

== ENCOUNTER → 2021-11-17 | Outpatient (CLI) | payer MEDICARE ==
[~2021-11-17] MED LIST changes: +LOSA100T45 PO; -LOSA100T50 PO; +PANT40TA29 PO; +PRED10TA2 PO; +SUCR1TA PO; +VENTAER INH
== END ==
LOC: M RAD 11:55
PROVIDERS: ATTEND Physician Assistant
DX: L81.9 Disorder of pigmentation, unspecified (principal)

== ENCOUNTER → 2021-12-08 | Outpatient (REF) | payer MEDICARE ==
[2021-12-08 18:13] LABS: HEMOGLOBIN A1c 6.6 %
[2021-12-08 18:24] LABS: BLOOD UREA NITROGEN 8 MG/DL (7-18); CALCIUM LEVEL 9.5 MG/DL (8.8-10.2); CARBON DIOXIDE LEVEL 26 MEQ/L (21-32); CHLORIDE LEVEL 108 MEQ/L (98-107); CREATININE FOR GFR 0.74 MG/DL (0.55-1.30); GLOMERULAR FILTRATION RATE > 60.0 (>39); GLUCOSE, FASTING 80 MG/DL (70-100); POTASSIUM SERUM 4.2 MEQ/L (3.5-5.1); SODIUM LEVEL 141 MEQ/L (136-145)
[2021-12-08 18:25] LABS: ALBUMIN 3.2 GM/DL (3.2-5.2); ALT/SGPT 33 U/L (12-78); BILIRUBIN,TOTAL 1.4 MG/DL (0.2-1.0)
== END ==
LOC: M SFHCADAM 14:11
PROVIDERS: ATTEND Physician Assistant Medical
DX: Z86.16 Personal history of COVID-19 (principal); E11.9 Type 2 diabetes mellitus without complications; I48.0 Paroxysmal atrial fibrillation; G47.33 Obstructive sleep apnea (adult) (pediatric)

== ENCOUNTER → 2022-02-11 | Outpatient (CLI) | payer MEDICARE | LOC: M RAD 15:01 | PROVIDERS: ATTEND Internal Medicine Pulmonary Disease | DX: Z11.52 Encounter for screening for COVID-19 (principal); R06.02 Shortness of breath ==

== ENCOUNTER → 2022-07-09 | Outpatient (REF) | payer MEDICARE ==
[2022-07-09 17:56] LABS: BASO # 0.1 10^3/uL (0.0-0.2); BASO % 0.5 % (0.0-1.0); EOS # 0.2 10^3/uL (0.0-0.5); EOS % 2.1 % (0.0-3.0); HEMATOCRIT 41.8 % (36.0-47.0); HEMOGLOBIN 13.3 g/dl (12.0-15.5); LYMPH # 3.6 10^3/uL (1.5-5.0); LYMPH % 39.2 % (24.0-44.0); MEAN CORPUSCULAR HEMOGLOBIN 30.9 pg (27.0-33.0); MEAN CORPUSCULAR HGB CONC 31.8 g/dl (32.0-36.5); MEAN CORPUSCULAR VOLUME 97.2 fl (80.0-96.0); MONO # 0.6 10^3/uL (0.0-0.8); MONO % 6.5 % (2.0-8.0); NEUTROPHILS # 4.8 10^3/uL (1.5-8.5); NEUTROPHILS % 51.6 % (36.0-66.0); PLATELET COUNT, AUTOMATED 247 10^3/uL (150-450); WHITE BLOOD COUNT 9.2 10^3/uL (4.0-10.0)
[2022-07-09 18:24] LABS: HEMOGLOBIN A1c 6.7 %
[2022-07-09 18:40] LABS: MALB URINE SIEMENS 14.9 MG/L; MAU/CREAT RATIO 6.8 MCG/MG (0.0-30.0)
[2022-07-09 18:45] LABS: ALBUMIN 3.2 GM/DL (3.2-5.2); ALT/SGPT 23 U/L (12-78); BILIRUBIN,TOTAL 0.3 MG/DL (0.2-1.0); BLOOD UREA NITROGEN 10 MG/DL (7-18); CALCIUM LEVEL 9.5 MG/DL (8.8-10.2); CARBON DIOXIDE LEVEL 29 MEQ/L (21-32); CHLORIDE LEVEL 107 MEQ/L (98-107); CHOLESTEROL LEVEL 152 MG/DL (<200); CHOLESTEROL RISK RATIO 3.166 (<5); CREATININE FOR GFR 0.77 MG/DL (0.55-1.30); GLOMERULAR FILTRATION RATE > 60.0 (>39); GLUCOSE, FASTING 99 MG/DL (70-100); HDL CHOLESTEROL 48 MG/DL (>40); LDL CHOLESTEROL 81 MG/DL (<100); NON-HDL-C 104 MG/DL; POTASSIUM SERUM 4.7 MEQ/L (3.5-5.1); SODIUM LEVEL 140 MEQ/L (136-145); TOTAL PROTEIN 6.7 GM/DL (6.4-8.2); TRIGLYCERIDES LEVEL 114 MG/DL (<150)
[2022-07-09 19:01] LABS: TOTAL 25(OH) VITAMIN D 21.1 NG/ML (30.0-100.0)
== END ==
LOC: M SFHCADAM 14:32
PROVIDERS: ATTEND Physician Assistant Medical
DX: E78.2 Mixed hyperlipidemia (principal); I10 Essential (primary) hypertension; E11.9 Type 2 diabetes mellitus without complications; R53.82 Chronic fatigue, unspecified

== ENCOUNTER → 2022-07-15 | Outpatient (CLI) | payer MEDICARE ==
[~2022-07-15] MED LIST changes: +METHACHOLINE KIT (J7674) INH ONE
== END ==
LOC: M CARPUL 14:31
PROVIDERS: ATTEND Nurse Practitioner Family
DX: G47.33 Obstructive sleep apnea (adult) (pediatric) (principal)
CPT/HCPCS: 94070; 95070; J7674

== ENCOUNTER → 2022-12-22 | Outpatient (REF) | payer MEDICARE ==
[~2022-12-22] MED LIST changes: -METHACHOLINE KIT (J7674) INH ONE
== END ==
LOC: M LABDRWAD 15:53
PROVIDERS: ATTEND Physician Assistant
DX: R06.02 Shortness of breath (principal)

== ENCOUNTER → 2023-01-12 | Outpatient (REF) | payer MEDICARE ==
[2023-01-12 15:04] LABS: BASO # 0.1 10^3/uL (0.0-0.2); BASO % 0.7 % (0.0-1.0); EOS # 0.2 10^3/uL (0.0-0.5); EOS % 2.4 % (0.0-3.0); HEMATOCRIT 43.4 % (36.0-47.0); HEMOGLOBIN 13.6 g/dl (12.0-15.5); LYMPH % 33.9 % (24.0-44.0); MEAN CORPUSCULAR HGB CONC 31.3 g/dl (32.0-36.5); MEAN CORPUSCULAR VOLUME 95.6 fl (80.0-96.0); MONO # 0.4 10^3/uL (0.0-0.8); MONO % 5.1 % (2.0-8.0); NEUTROPHILS % 57.8 % (36.0-66.0); PLATELET COUNT, AUTOMATED 227 10^3/uL (150-450); RED BLOOD COUNT 4.54 10^6/uL (4.00-5.40); WHITE BLOOD COUNT 8.7 10^3/uL (4.0-10.0)
[2023-01-12 15:10] LABS: THYROID STIMULATING HORMONE 1.109 uIU/ML (0.55-4.78); TOTAL 25(OH) VITAMIN D 14.8 NG/ML (20.0-100.0)
[2023-01-12 15:13] LABS: ALBUMIN 3.2 G/DL (3.2-5.2); ALKALINE PHOSPHATASE 137 U/L (46-116); ALT/SGPT 27 U/L (7.0-40); AST/SGOT 32 U/L (<34); BILIRUBIN,TOTAL 0.3 MG/DL (0.3-1.2); BLOOD UREA NITROGEN 10 MG/DL (9-23); CALCIUM LEVEL 9.5 MG/DL (8.3-10.6); CARBON DIOXIDE LEVEL 29 MMOL/L (20-31); CHLORIDE LEVEL 106 MMOL/L (98-107); CHOLESTEROL LEVEL 139 MG/DL (<200); CREATININE FOR GFR 0.72 MG/DL (0.55-1.30); GLOMERULAR FILTRATION RATE > 60.0 (>39); GLUCOSE, FASTING 155 MG/DL (74-106); HDL CHOLESTEROL 42.1 MG/DL (>40); LDL CHOLESTEROL 74.7 MG/DL (<100); NON-HDL-C 96.9 MG/DL; POTASSIUM SERUM 4.4 MMOL/L (3.5-5.1); SODIUM LEVEL 141 MMOL/L (136-145); TOTAL PROTEIN 6.4 G/DL (5.7-8.2); TRIGLYCERIDES LEVEL 111 MG/DL (<150)
[2023-01-12 18:45] LABS: HEMOGLOBIN A1c 7.1 % (4.0-6.0)
== END ==
LOC: M SFHCADAM 09:57
PROVIDERS: ATTEND Physician Assistant Medical
DX: E78.2 Mixed hyperlipidemia (principal); J43.1 Panlobular emphysema; I10 Essential (primary) hypertension; E66.01 Morbid (severe) obesity due to excess calories; E11.9 Type 2 diabetes mellitus without complications

== ENCOUNTER → 2023-02-28 | Outpatient (CLI) | payer MEDICARE ==
[~2023-02-28] MED LIST changes: -LOSA100T45 PO; +LOSA100T46 PO
[2023-02-28 11:21] LABS: BLOOD UREA NITROGEN 10 MG/DL (9-23); CREATININE FOR GFR 0.73 MG/DL (0.55-1.30); GLOMERULAR FILTRATION RATE > 60.0 (>39)
== END ==
LOC: M LAB 09:29
PROVIDERS: ATTEND Otolaryngology
DX: J31.0 Chronic rhinitis (principal); J34.2 Deviated nasal septum; R04.2 Hemoptysis

== ENCOUNTER → 2023-03-09 | Outpatient (CLI) | payer MEDICARE ==
[~2023-03-09] MED LIST changes: +ISOVUE-370 76% 100ML VIAL As Ordered ONE
== END ==
LOC: M RAD 13:25
PROVIDERS: ATTEND Otolaryngology
DX: R04.2 Hemoptysis (principal)
CPT/HCPCS: 71260; Q9967

== ENCOUNTER → 2023-03-25 | Outpatient (CLI) | payer MEDICARE | LOC: M RAD 12:58 | PROVIDERS: ATTEND Otolaryngology | DX: R04.2 Hemoptysis (principal) | CPT/HCPCS: 70487; 70491; Q9967 ==

== ENCOUNTER → 2023-05-18 | Outpatient (REF) | payer MEDICARE ==
[~2023-05-18] MED LIST changes: -ISOVUE-370 76% 100ML VIAL As Ordered ONE; +OMEP-173 PO
[2023-05-18 12:50] LABS: HEMATOCRIT 40.3 % (36.0-47.0); HEMOGLOBIN 12.8 g/dl (12.0-15.5); MEAN CORPUSCULAR HEMOGLOBIN 29.6 pg (27.0-33.0); MEAN CORPUSCULAR HGB CONC 31.8 g/dl (32.0-36.5); MEAN CORPUSCULAR VOLUME 93.3 fl (80.0-96.0); PLATELET COUNT, AUTOMATED 221 10^3/uL (150-450); RED BLOOD COUNT 4.32 10^6/uL (4.00-5.40); WHITE BLOOD COUNT 8.6 10^3/uL (4.0-10.0)
== END ==
LOC: M LABDRWAD 12:23
PROVIDERS: ATTEND Physician Assistant Medical
DX: R93.3 Abnormal findings on diagnostic imaging of other parts of digestive tract (principal)

== ENCOUNTER 2023-05-27 13:14 | Day surgery (SDC) | payer MEDICARE ==
[~2023-05-27] VITALS: Ht 172.7 cm; Wt 117.9 kg
[~2023-05-27 13:14] MED LIST changes: +NS 1,000 ML IV ONE
[2023-05-27] MEDS ORDERED: propofoL 200 MG/20 ML VIAL As Ordered ONE (15:06)
[2023-05-27] MEDS ORDERED: LIDOCAINE 2% 100MG/5ML SDV (FOR ANES.) As Ordered ONE (15:06)
[2023-05-27 16:11] VITALS: TEMP 97.1
[2023-05-27 16:21] VITALS: BP 156/81; O2SAT 94
== END 2023-05-27 16:27 | disposition home or self-care (01) ==
LOC: M OPP 13:14
PROVIDERS: ATTEND Internal Medicine Gastroenterology
DX: K44.9 Diaphragmatic hernia without obstruction or gangrene (principal); K22.2 Esophageal obstruction; K21.00 Gastro-esophageal reflux disease with esophagitis, without bleeding; R93.3 Abnormal findings on diagnostic imaging of other parts of digestive tract; Z79.01 Long term (current) use of anticoagulants; Z79.02 Long term (current) use of antithrombotics/antiplatelets; Z79.899 Other long term (current) drug therapy; Z88.0 Allergy status to penicillin; Z88.5 Allergy status to narcotic agent; Z91.048 Other nonmedicinal substance allergy status

== ENCOUNTER → 2023-08-18 | Outpatient (REF) | payer MEDICARE ==
[~2023-08-18] MED LIST changes: +MECL-209 PO; -MECL1TAB31 PO; -NS 1,000 ML IV ONE
[2023-08-18 17:33] LABS: BASO # 0.1 10^3/uL (0.0-0.2); BASO % 0.6 % (0.0-1.0); EOS # 0.3 10^3/uL (0.0-0.5); EOS % 2.5 % (0.0-3.0); HEMATOCRIT 45.9 % (36.0-47.0); HEMOGLOBIN 14.7 g/dl (12.0-15.5); LYMPH # 4.4 10^3/uL (1.5-5.0); LYMPH % 35.7 % (24.0-44.0); MEAN CORPUSCULAR HEMOGLOBIN 30.5 pg (27.0-33.0); MEAN CORPUSCULAR VOLUME 95.2 fl (80.0-96.0); MONO # 0.8 10^3/uL (0.0-0.8); MONO % 6.2 % (2.0-8.0); NEUTROPHILS # 6.7 10^3/uL (1.5-8.5); NEUTROPHILS % 54.7 % (36.0-66.0); PLATELET COUNT, AUTOMATED 270 10^3/uL (150-450); RED BLOOD COUNT 4.82 10^6/uL (4.00-5.40); WHITE BLOOD COUNT 12.2 10^3/uL (4.0-10.0)
[2023-08-18 18:01] LABS: HEMOGLOBIN A1c 7.4 % (4.0-6.0)
[2023-08-18 18:07] LABS: ALBUMIN 3.3 G/DL (3.2-5.2); ALKALINE PHOSPHATASE 143 U/L (46-116); ALT/SGPT 33 U/L (7.0-40); AST/SGOT 40 U/L (<34); BILIRUBIN,TOTAL 0.4 MG/DL (0.3-1.2); BLOOD UREA NITROGEN 10 MG/DL (9-23); CALCIUM LEVEL 9.7 MG/DL (8.3-10.6); CARBON DIOXIDE LEVEL 30 MMOL/L (20-31); CHLORIDE LEVEL 106 MMOL/L (98-107); CHOLESTEROL LEVEL 162 MG/DL (<200); CHOLESTEROL RISK RATIO 3.87 (<5); CREATININE FOR GFR 0.74 MG/DL (0.55-1.30); GLOMERULAR FILTRATION RATE > 60.0 (>39); GLUCOSE, FASTING 89 MG/DL (74-106); HDL CHOLESTEROL 41.8 MG/DL (>40); LDL CHOLESTEROL 95.4 MG/DL (<100); MAGNESIUM LEVEL 1.8 MG/DL (1.8-2.4); NON-HDL-C 120.2 MG/DL; POTASSIUM SERUM 4.7 MMOL/L (3.5-5.1); SODIUM LEVEL 141 MMOL/L (136-145); TRIGLYCERIDES LEVEL 124 MG/DL (<150)
[2023-08-18 18:09] LABS: THYROID STIMULATING HORMONE 2.359 uIU/ML (0.55-4.78)
== END ==
LOC: M SFHCADAM 15:24
PROVIDERS: ATTEND Physician Assistant Medical
DX: E78.2 Mixed hyperlipidemia (principal); E11.9 Type 2 diabetes mellitus without complications; K21.9 Gastro-esophageal reflux disease without esophagitis; Z79.899 Other long term (current) drug therapy

== ENCOUNTER 2023-10-31 15:22 | Emergency (ER) | payer MEDICARE ==
[~2023-10-31] VITALS: Ht 172.7 cm; Wt 119.1 kg
[2023-10-31 15:24] VITALS: TEMP 98.6
[2023-10-31] MEDS ORDERED: ASPIRIN 81MG CHEW TABLET PO ONE (17:05)
[2023-10-31] MEDS ORDERED: NS 1,000 ML IV SCH (17:05)
[2023-10-31] MEDS ORDERED: FAMOTIDINE 20MG/2ML VIAL IVP ONE (17:05)
[2023-10-31] MEDS ORDERED: MAALOX 30 ML SUSP *UDC PO ONE (17:05)
[2023-10-31 17:32] LABS: BASO % 0.3 % (0.0-1.0); EOS # 0.3 10^3/uL (0.0-0.5); EOS % 2.8 % (0.0-3.0); HEMATOCRIT 41.4 % (36.0-47.0); HEMOGLOBIN 13.4 g/dl (12.0-15.5); LYMPH # 2.1 10^3/uL (1.5-5.0); LYMPH % 19.9 % (24.0-44.0); MEAN CORPUSCULAR HEMOGLOBIN 30.7 pg (27.0-33.0); MEAN CORPUSCULAR HGB CONC 32.4 g/dl (32.0-36.5); MONO # 0.5 10^3/uL (0.0-0.8); MONO % 5.2 % (2.0-8.0); NEUTROPHILS # 7.3 10^3/uL (1.5-8.5); NEUTROPHILS % 71.3 % (36.0-66.0); PLATELET COUNT, AUTOMATED 246 10^3/uL (150-450); RED BLOOD COUNT 4.36 10^6/uL (4.00-5.40); WHITE BLOOD COUNT 10.3 10^3/uL (4.0-10.0)
[2023-10-31 17:51] LABS: INR 1.1; PROTHROMBIN TIME 13.9 SECONDS (12.5-14.5)
[2023-10-31 17:53] LABS: CK-MB VALUE MASS < 1.0 NG/ML (<3.6)
[2023-10-31 17:53] LABS: ALBUMIN 3.2 G/DL (3.2-5.2); BILIRUBIN,DIRECT 0.2 MG/DL (<0.4); BILIRUBIN,TOTAL 0.5 MG/DL (0.3-1.2); TOTAL PROTEIN 7.1 G/DL (5.7-8.2)
[2023-10-31 17:56] LABS: CPK CREATINE PHOSPHOKINASE 61 U/L (34-145); MB/CK RELATIVE INDEX 1.63 (< OR =4)
[2023-10-31] MEDS ORDERED: CARA1TAB6 PO (18:39)
[2023-10-31 19:00] VITALS: BP 173/84; O2SAT 96
[2023-10-31 19:26] LABS: BLOOD UREA NITROGEN 10 MG/DL (9-23); CARBON DIOXIDE LEVEL 29 MMOL/L (20-31); CHLORIDE LEVEL 106 MMOL/L (98-107); CK-MB VALUE MASS < 1.0 NG/ML (<3.6); CPK CREATINE PHOSPHOKINASE 52 U/L (34-145); CREATININE FOR GFR 0.74 MG/DL (0.55-1.30); GLOMERULAR FILTRATION RATE > 60.0 (>39); GLUCOSE, FASTING 104 MG/DL (74-106); MB/CK RELATIVE INDEX 1.92 (< OR =4); POTASSIUM SERUM 4.5 MMOL/L (3.5-5.1); SODIUM LEVEL 140 MMOL/L (136-145)
== END 2023-10-31 19:30 | disposition home or self-care (01) ==
LOC: M ED 15:22
DX: K21.00 Gastro-esophageal reflux disease with esophagitis, without bleeding (principal); I48.91 Unspecified atrial fibrillation; I10 Essential (primary) hypertension; I51.7 Cardiomegaly; I70.0 Atherosclerosis of aorta; Z95.0 Presence of cardiac pacemaker; Z98.82 Breast implant status; Z79.899 Other long term (current) drug therapy; Z88.0 Allergy status to penicillin; Z88.5 Allergy status to narcotic agent; Z91.89 Other specified personal risk factors, not elsewhere classified

== ENCOUNTER → 2024-03-28 | Outpatient (CLI) | payer MEDICARE ==
[~2024-03-28] MED LIST changes: +CARA1TAB6 PO
== END ==
LOC: M ADAMS 13:42
PROVIDERS: ATTEND Physician Assistant Medical
DX: I51.7 Cardiomegaly (principal); R05.3 Chronic cough; R05.8 Other specified cough

== ENCOUNTER → 2024-04-16 | Outpatient (REF) | payer MEDICARE | LOC: M SFHCADAM 17:31 | PROVIDERS: ATTEND Physician Assistant Medical | DX: R05.3 Chronic cough (principal); R05.8 Other specified cough ==

== ENCOUNTER → 2025-01-02 | Outpatient (REF) | payer MEDICARE ==
[~2025-01-02] MED LIST changes: +METO1TAB33 PO
[2025-01-02 17:22] LABS: BASO # 0.1 10^3/uL (0.0-0.2); BASO % 0.4 % (0.0-1.0); EOS # 0.3 10^3/uL (0.0-0.5); EOS % 2.2 % (0.0-3.0); HEMATOCRIT 42.7 % (36.0-47.0); HEMOGLOBIN 13.6 g/dl (12.0-15.5); LYMPH # 3.5 10^3/uL (1.5-5.0); LYMPH % 31.3 % (24.0-44.0); MEAN CORPUSCULAR HEMOGLOBIN 30.2 pg (27.0-33.0); MEAN CORPUSCULAR HGB CONC 31.9 g/dl (32.0-36.5); MEAN CORPUSCULAR VOLUME 94.9 fl (80.0-96.0); MONO # 0.6 10^3/uL (0.0-0.8); NEUTROPHILS # 6.8 10^3/uL (1.5-8.5); NEUTROPHILS % 60.7 % (36.0-66.0); PLATELET COUNT, AUTOMATED 276 10^3/uL (150-450); WHITE BLOOD COUNT 11.2 10^3/uL (4.0-10.0)
[2025-01-02 17:37] LABS: HEMOGLOBIN A1c 9.3 % (4.0-6.0)
[2025-01-02 17:48] LABS: ALBUMIN 3.1 G/DL (3.2-5.2); ALKALINE PHOSPHATASE 150 U/L (35-104); ALT/SGPT 27 U/L (7.0-40); AST/SGOT 40 U/L (<34); BILIRUBIN,TOTAL 0.3 MG/DL (0.3-1.2); BLOOD UREA NITROGEN 14 MG/DL (9-23); CARBON DIOXIDE LEVEL 27 MMOL/L (20-31); CHLORIDE LEVEL 101 MMOL/L (98-107); CHOLESTEROL LEVEL 150 MG/DL (<200); CHOLESTEROL RISK RATIO 3.86 (<5); CREATININE FOR GFR 0.88 MG/DL (0.55-1.30); GLOMERULAR FILTRATION RATE > 60.0 (>39); GLUCOSE, FASTING 196 MG/DL (74-106); HDL CHOLESTEROL 38.8 MG/DL (>40); LDL CHOLESTEROL 84.2 MG/DL (<100); NON-HDL-C 111.2 MG/DL; POTASSIUM SERUM 4.7 MMOL/L (3.5-5.1); SODIUM LEVEL 138 MMOL/L (136-145); TOTAL PROTEIN 7.3 G/DL (5.7-8.2); TRIGLYCERIDES LEVEL 135 MG/DL (<150)
[2025-01-02 17:50] LABS: FREE T4 1.01 NG/DL (0.89-1.76); THYROID STIMULATING HORMONE 1.245 uIU/ML (0.55-4.78); VITAMIN B12 LEVEL 424 PG/ML (211-911)
[2025-01-02 17:51] LABS: TOTAL 25(OH) VITAMIN D 12.7 NG/ML (20.0-100.0)
== END ==
LOC: M SFHCADAM 15:21
PROVIDERS: ATTEND Physician Assistant Medical
DX: E78.2 Mixed hyperlipidemia (principal); I10 Essential (primary) hypertension; E66.01 Morbid (severe) obesity due to excess calories; E11.9 Type 2 diabetes mellitus without complications

== ENCOUNTER 2025-01-16 06:49 | Day surgery (SDC) | payer MEDICARE ==
[~2025-01-16] VITALS: Ht 172.7 cm; Wt 112.4 kg
[~2025-01-16 06:49] MED LIST changes: +FOLI1TAB11 PO; +METF-839 PO
[2025-01-16] MEDS ORDERED: propofoL 200 MG/20 ML VIAL As Ordered ONE (08:17)
[2025-01-16 08:39] VITALS: TEMP 97.8
[2025-01-16 09:06] VITALS: BP 107/76; O2SAT 97
== END 2025-01-16 09:16 | disposition home or self-care (01) ==
LOC: M OPP 06:49
PROVIDERS: ATTEND Surgery
DX: D12.5 Benign neoplasm of sigmoid colon (principal); D12.3 Benign neoplasm of transverse colon; K57.30 Diverticulosis of large intestine without perforation or abscess without bleeding; Z86.0100 Personal history of colon polyps, unspecified; Z79.01 Long term (current) use of anticoagulants; I48.91 Unspecified atrial fibrillation; Z95.0 Presence of cardiac pacemaker; G47.30 Sleep apnea, unspecified; Z88.0 Allergy status to penicillin; Z88.5 Allergy status to narcotic agent; Z91.048 Other nonmedicinal substance allergy status; Z79.84 Long term (current) use of oral hypoglycemic drugs; Z79.899 Other long term (current) drug therapy

== ENCOUNTER → 2025-01-28 | Outpatient (CLI) | payer MEDICARE | LOC: M RAD 12:57 | PROVIDERS: ATTEND Physician Assistant Medical | DX: M79.604 Pain in right leg (principal); M79.605 Pain in left leg; M79.89 Other specified soft tissue disorders ==

== ENCOUNTER → 2025-05-17 | Outpatient (CLI) | payer MEDICARE ==
[2025-05-17 12:39] LABS: BASO # 0.0 10^3/uL (0.0-0.2); BASO % 0.4 % (0.0-1.0); EOS # 0.3 10^3/uL (0.0-0.5); EOS % 3.4 % (0.0-3.0); LYMPH # 2.6 10^3/uL (1.5-5.0); LYMPH % 32.5 % (24.0-44.0); MONO # 0.4 10^3/uL (0.0-0.8); MONO % 5.5 % (2.0-8.0); NEUTROPHILS # 4.6 10^3/uL (1.5-8.5); NEUTROPHILS % 57.9 % (36.0-66.0); PLATELET COUNT, AUTOMATED 245 10^3/uL (150-450)
[2025-05-17 14:25] LABS: ALT/SGPT 12.0 U/L (7.0-40); AST/SGOT 17.0 U/L (<34); CALCIUM LEVEL 9.0 MG/DL (8.3-10.6); CARBON DIOXIDE LEVEL 27.0 MMOL/L (20-31); CHLORIDE LEVEL 105.0 MMOL/L (98-107); CHOLESTEROL LEVEL 112.0 MG/DL (<200); CHOLESTEROL RISK RATIO 2.97 (<5); CREATININE FOR GFR 0.74 MG/DL (0.55-1.30); GLOMERULAR FILTRATION RATE 84.3 (>39); LDL CHOLESTEROL 60.2 MG/DL (<100); NON-HDL-C 74.4 MG/DL; POTASSIUM SERUM 4.1 MMOL/L (3.5-5.1); SODIUM LEVEL 144.0 MMOL/L (136-145); TRIGLYCERIDES LEVEL 71.0 MG/DL (<150); VITAMIN B12 LEVEL 295.0 PG/ML (211-911)
[2025-05-17 15:08] LABS: ESTIMATED AVERAGE GLUCOSE 131.0 MG/DL (60-110)
== END ==
LOC: M LAB 11:49
PROVIDERS: ATTEND Physician Assistant Medical
DX: E11.9 Type 2 diabetes mellitus without complications (principal); E53.8 Deficiency of other specified B group vitamins

== ENCOUNTER → 2025-05-27 | Outpatient (REF) | payer MEDICARE ==
[2025-05-27 17:40] LABS: PLATELET COUNT, AUTOMATED 335 10^3/uL (150-450)
[2025-05-27 18:35] LABS: IRON (FE) 36.0 UG/DL (50-170)
[2025-05-27 18:36] LABS: PERCENT SATURATION 11.1 % (13.2-45.0)
[2025-05-27 18:37] LABS: VITAMIN B12 LEVEL 386.0 PG/ML (211-911)
== END ==
LOC: M SFHCADAM 13:17
PROVIDERS: ATTEND Physician Assistant Medical
DX: D64.9 Anemia, unspecified (principal)

== ENCOUNTER → 2025-05-28 | Outpatient (REF) | payer MEDICARE | LOC: M SFHCADAM 13:21 | PROVIDERS: ATTEND Physician Assistant Medical | DX: D64.9 Anemia, unspecified (principal) ==

== ENCOUNTER → 2025-09-30 | Outpatient (REF) | payer MEDICARE ==
[2025-09-30 17:41] LABS: ESTIMATED AVERAGE GLUCOSE 146.0 MG/DL (60-110)
[2025-09-30 17:44] LABS: ALT/SGPT 19.0 U/L (7.0-40); AST/SGOT 20.0 U/L (<34); CALCIUM LEVEL 9.6 MG/DL (8.3-10.6); CARBON DIOXIDE LEVEL 29.0 MMOL/L (20-31); CHLORIDE LEVEL 101.0 MMOL/L (98-107); CHOLESTEROL LEVEL 144.0 MG/DL (<200); CHOLESTEROL RISK RATIO 3.28 (<5); CREATININE FOR GFR 0.78 MG/DL (0.55-1.30); GLOMERULAR FILTRATION RATE 78.7 (>39); LDL CHOLESTEROL 74.9 MG/DL (<100); NON-HDL-C 100.1 MG/DL; POTASSIUM SERUM 4.6 MMOL/L (3.5-5.1); SODIUM LEVEL 139.0 MMOL/L (136-145); TRIGLYCERIDES LEVEL 126.0 MG/DL (<150)
[2025-09-30 17:46] LABS: FREE T4 0.97 NG/DL (0.89-1.76)
[2025-09-30 17:47] LABS: TOTAL 25(OH) VITAMIN D 19.7 NG/ML (20.0-100.0)
== END ==
LOC: M SFHCADAM 14:37
PROVIDERS: ATTEND Physician Assistant Medical
DX: E11.9 Type 2 diabetes mellitus without complications (principal); E53.8 Deficiency of other specified B group vitamins; I10 Essential (primary) hypertension; E55.9 Vitamin D deficiency, unspecified